=== PATIENT | female | born 1985 | race African-American/Black ===

== ENCOUNTER 2025-06-03 15:27 | Outpatient (REF) | payer OTHER, SELFPAY ==
--- OUTSIDE RECORDS SUMMARY | 2023-12-13 06:15 | XMS_ITS | Continuity of Care Document ---
Author Organization [facility] Address [address] [place] [phone] Phone Care Team Providers Care Core Microarchitect Name Role Phone Roshan Brooks DDS Unavailable [...] Prophylaxis Adult Nutrit Couns For Control Of [place] Dis Sep Oral Hygiene Instruction Intraoral-complete Series (bw) 23 Comp Oral Eval New/estab Patient 2022 Oral Hygiene Instruction Oral Hygiene Instruction Limited Oral Eval Extraction Surgical/erupt Tooth 021 Nutrit Couns For Control Of [place] Dis Sep Bitewig-single Film Intraoral-periapical 1st Film Advance Directives Directive Yes / No Effective Date File Name No Information Encounters Encounter Description Practice Location Reason(s) For Visit Diagnoses Date Provider Providers Copied on Encounter [facility], [address] [place] [address], [id number], [place] tel:[phone] Dental Clinic khang (chief complaint) Body mass index [BMI] 25.0-25.9, adultEncounter for screening for dental disorders [facility]. [address] [place] [address], [address], [place]. tel:[phone] [facility], [address] [place] [address], [id number], [place] tel:[phone] Dental Clinic Filling (chief complaint) Body mass index [BMI] 25.0-25.9, adultEncounter for screening for dental disorders [facility]. [address] [place] [address], [address], [place]. tel:[phone] [facility], [address] [place] [address], [id number], [place] tel:[phone] Dental Clinic khang (chief complaint) Encounter for screening for dental disorders [facility]. [address] [place] [address], [address], [place]. [phone] [facility], [address] [place] [address], [id number], [place] tel:[phone] Dental Clinic Filing (chief complaint) Encounter for screening for dental disorders [facility]. [address] [place] [address], [address], [place]. tel:[phone] [facility], [address] [place] [address], [id number], [place] tel:[phone] Dental Clinic [place] (chief complaint) Encounter for screening for dental disorders [facility]. [address] [place] [address], [address], [place]. tel:[phone] [facility], [address] [place] [address], [id number], [place] tel:[phone] [facility] Dental Clinic dental new (chief complaint) Encounter for screening for dental disorders Christopher MEDINAS Rivka. . tel:[phone] [facility], [address] [place], [place], [id number], [place] tel:[phone] Dental Clinic Dental Emergency (chief complaint) Encounter for screening for dental disorders Natalio Modi. [address] [place], [address], [place]. tel:[phone] Family History Family Member Type Diagnosis Age At Onset Mother Problem hypertension Father Problem malignant neoplasm of pancre as Father Problem stroke Mother Problem Alive and well Payers Payer name Insurance type Covered green party ID Authoriza tion(s) D [employer] [facility] [id number] D Medicaid [facility] [id number] Social History Type Description Quantity Date Captured [...] education , guidance, and counseling completed Goal Hepatitis C screening. Due o n due Goal Tdap. Due on due Goal PRAPARE [...] 2022 due Goal PRAPARE ASSESSMENT. Due on D due Goal Unhealthy drug use screening . Due on due Goal Influenza vaccine. Due on due Goal HPV. Due on due Goal Depression screening. Due on due Goal Tdap. Due on due Goal RLP. Due on due Goal Hepatitis C screening. Due o n due Goal PRAPARE ASSESSMENT. Due on N due Goal Tdap Vaccine. Due on 2022 due Goal HPV. Due on due Goal Hep A. Due on du e Goal Unhealthy drug use screening . Due on due Goal Influenza vaccine. Due on No due Goal Tdap. Due on due Goal Depression screening. Due on due Goal RLP. Due on due Goal Hepatitis C screening. [...] Goal Hep A. Due on du e History Of Present Illness Encounter Date Complaint [...]
--- OUTSIDE RECORDS SUMMARY | 2025-04-28 11:20 | XMS_ITS | Encounter Summary ---
Author Organization [facility] Address [address] [place] [address] Care Team Providers Care Supervisor Residential Name Role Phone Lisa Grady MD Primary Care Provider [phone] Mirella Parekh RN CLINICAL TRIALS Unavailable Encounter Details Date Type Department Care Team (Late st Contact Info) Description 04/28/2025 11:20 AM EDT Office Visit [facility] [address] [place] [id number] Lisa Grady MD [address] [place] [address] Bowel habit changes (Primary Dx); Diarrhea, unspecified type; Other iron deficiency anemia; Hyperglycemia; Elevated glucose; Generalized abdominal pain; Bipolar 1 disorder, mixed, moderate (HCC) Social History Tobacco Use Types Packs/Day Years Used Date Smoking Tobacco: Never Smokeless Tobacco: Never Alcohol Use Standard Drinks/Week Comments Never 0 (1 standard drink = 0.6 oz pur e alcohol) B1300 Health Literacy Answer Date Recor ded How often do you need to hav e someone help you when you read instructions, pamphlets, or other written material from your doctor or pharmacy? Never 07/01/2024 Social Connection and Isolation Panel [NHANES] A nswer Date Recorded In a typical week, how many times do you talk on the phone with family, friends, or neighbors? Patient declined 07/01/2024 How often do you get togethe r with friends or relatives? Patient declined 07/01/2024 How often do you attend mosque or moravian serv ices? Never 07/01/2024 Do you belong to any clubs o r organizations such as mosque groups, unions, fraternal or athletic groups, or school groups? No 07/01/2024 How often do you attend meet ings of the clubs or organizations you belong to? Never 07/01/2024 Are you , , di vorced, , never , or living with a partner? Never 07/01/2024 AUDIT-C Answer Date Recorded Q1: How often do you have a drink containing alc ohol? Patient declined 07/01/2024 Q2: How many drinks containi ng alcohol do you have on a typical day when you are drinking? Patient declined 07/01/2024 Q3: How often do you have si x or more drinks on one occasion? Less than monthly 07/01/2024 Overall Financial Resource Strain (CARDIA) Answe r Date Recorded How hard is it for you to pa y for the very basics like food, housing, medical care, and heating? Not very hard 07/01/2024 PHQ-2 Answer Date Recorded Patient Health Questionnaire-2 Score 4 04/28/2025 [facility] - Occupational Stress Questionnaire Answer Date Recorded Do you feel stress - tense, restless, nervous, or anxious, or unable to sleep at night because your mind is troubled all the time - these days? Very much 07/01/2024 Exercise Vital Sign Answer Date Recorde d On average, how many days pe r week do you engage in moderate to strenuous exercise (like a brisk walk)? 0 days 07/01/2024 On average, how many minutes do you engage in exercise at this level? 0 min 07/01/2024 Hunger Vital Sign Answer Date Recorded Within the past 12 months, y ou worried that your food would run out before you got the money to buy more. Never true 07/01/20 24 Within the past 12 months, t he food you bought just didn't last and you didn't have money to get more. Never true 07/01/2024 PRAPARE - Transportation Answer Date Re corded In the past 12 months, has l ack of transportation kept you from medical appointments or from getting medications? No 06/12 In the past 12 months, has l ack of transportation kept you from meetings, work, or from getting things needed for daily living? No 07/01/2024 Housing Stability Vital Sign Answer Philip e Recorded In the last 12 months, was t here a time when you were not able to pay the mortgage or rent on time? Yes 07/01/2024 Number of Times Moved in the Last Year Not on fi le 07/01/2024 At any time in the past 12 m [facility], were you homeless or living in a assisted (including now)? No 07/01/2024 Comments No Sex and Gender Information Value Date Recorded Sex Assigned at Not on file Legal Sex Female 7:29 PM EDT Gender Identity Female 08/13/2023 1:21 PM EDT Sexual Orientation Straight 08/13/2023 1: 21 PM EDT documented as of this encounter Last Filed Vital Signs Vital Sign Reading Time Taken Comments Blood Pressure 110/76 04/28/2025 11:15 AM EDT Pulse 76 04/28/2025 11:15 AM EDT Temperature - - Respiratory Rate - - Oxygen Saturation 99% 04/28/2025 11:15 AM EDT Inhaled Oxygen Concentration - - Weight 81.5 kg (179 lb 9.6 oz) 04/28/2025 11:15 AM EDT Height 166.4 cm (5' 5.5 ) 04/28/2025 11:15 AM ED T Body Mass Index 29.43 04/28/2025 11:15 AM EDT documented in this encounter Functional Status * Over the past 2 weeks, how often have you been bothered by any of the following problems? Question Answer Date of Assessment Author Little interest or pleasure in doing things Several days 04/28/2025 11:21 AM EDT Morena Valdovinos MA Feeling down, depressed, or hopeless Nearly every day 04/28/2025 11:21 AM EDT Morena Valdovinos MA Patient Health Questionnaire-2 Score 4 04/28/2025 11:21 AM EDT Bonifacio Valdovinos MA * Question Answer Date of Assessment Author Trouble falling or staying asleep, or sleeping too much Nearly every day 04/28/2025 11:21 AM EDT Morena Valdovinos MA Feeling tired or having little energy Nearly every day 04/28/2025 11:21 AM EDT Morena Valdovinos MA Poor appetite or overeating Nearly every day 04/28/2025 11:21 AM Morena Rondon MA Feeling bad about yourself - or that you are a failure or have let yourself or your family down Not at all 04/28/2025 11:21 AM Morena Rondon MA Trouble concentrating on things, such as reading the newspaper or watching television Nearly every day 04/28/2025 11:21 AM Morena Rondon MA Moving or speaking so slowly that other people could have noticed? Or the opposite - being so fidgety or restless that you have been moving around a lot more than usual. Several days 04/28/2025 11:21 AM Morena Rondon MA Thoughts that you would be better off or hurting yourself in some way Not at all 04/28/2025 11:21 AM Yari Rondon MA Patient Health Questionnaire-9 Score 17 04/28/2025 11:21 AM Bonifacio Rondon MA * If you checked off any problems on this questionnaire so far, Question Answer Date of Assessment Author How difficult have these problems made it for you to do your work, take care of things at home, or get along with other people? Very difficult 04/28/2025 11:21 AM Morena Rondon MA documented as of this encounter Progress Notes * Lisa Grady MD - 04/28/2025 11:20 AM EDT Images from the original note were not included. Lupe Owens is a 39 y.o. female presents with chief complaint of abd issues, persistent gas the past year and diarreha since November. Bloating in the abd. Patient has abd tenderness HPI: HPI History of Present Illness The patient presents for evaluation of diarrhea. She reports experiencing severe flatulence since 05/2024, which has been causing chest discomfort. She also mentions a significant weight gain since 11/2024, despite a reduced appetite. Her current weight is 180 pounds, up from her previous weight of 135 pounds. She experiences frequent episodes ofdiarrhea, occurring at least four times a week, which have been so severe that she had to call her son out of school during the last few months. Accompanying symptoms include cramping, bloating, and nausea. She also reports difficulty in maintaining personal hygiene due to pain and suspects the presence of hemorrhoids. She describes a sensation similar to the urge to push during childbirth, even immediately after using the restroom. Her diet is limited, with minimal intake of dairy products. She has made dietary modifications, including eliminating soda and juice, and increasing her water intake. She has also reduced her consumption of sweets and vegetables. She believes her lithium medication exacerbates her diarrhea. FAMILY HISTORY She has a cousin with Crohn's disease. Diabetes runs in her family. SUBJECTIVE: MEDICATIONS: Current Outpatient Medications Medication Instructions ALPRAZolam (XANAX) 0.5 mg, Oral, Nightly PRN cholecalciferol (VITAMIN D-3) 2,000 Units, Daily RT FLUoxetine (PROZAC) 20 mg, Oral, Daily lithium ER (Lithobid) 300 MG 12 hr tablet Take by mouth melatonin 20 mg, Nightly metoprolol succinate XL (TOPROL-XL) 50 mg, Oral, Daily, Do not crush or chew. OXcarbazepine (TRILEPTAL) 300 mg, Oral, 2 times daily tiZANidine (ZANAFLEX) 4 mg, Oral, Every 6 hours PRN tretinoin microspheres (Retin-A Micro) 0.1 % gel Topical, Nightly I have reviewed and reconciled the history and medication list with the patient today. REVIEW OF SYMPTOMS: Review of Systems OBJECTIVE: Visit Vitals BP 110/76 Pulse 76 Ht 5' 5.5 Wt 179 lb 9.6 oz SpO2 99% BMI 29.43 kg/m?? OB Status Ablation Smoking Status Never BSA 1.94 m?? Physical Exam Constitutional: Appearance: Normal appearance. She is normal weight. HENT: Head: Normocephalic and atraumatic. Nose: Nose normal. Mouth/Throat: Mouth: Mucous membranes are moist. Eyes: Pupils: Pupils are equal, round, and reactive to light. Cardiovascular: Rate and Rhythm: Normal rate and regular rhythm. Heart sounds: No murmur heard. Pulmonary: Effort: Pulmonary effort is normal. Breath sounds: Normal breath sounds. No wheezing or rhonchi. Abdominal: General: Abdomen is flat. Palpations: Abdomen is soft. There is no mass. Comments: Nild diffuse tenderness increased right side no rebound Musculoskeletal: General: No swelling. Cervical back: Normal range of motion and neck supple. Right lower leg: No edema. Left lower leg: No edema. Skin: General: Skin is warm and dry. Findings: No rash. Neurological: Mental Status: She is alert and oriented to person, place, and time. Sensory: No sensory deficit. Gait: Gait normal. Psychiatric: Mood and Affect: Mood normal. Thought Content: Thought content normal. Judgment: Judgment normal. ASSESSMENT AND PLAN: Assessment/Plan Problem List Items Addressed This Visit None Visit Diagnoses Bowel habit changes - Primary Relevant Orders CBC and differential Comprehensive metabolic panel TSH W/REFLEX TO FT4 [place] level Celiac panel reflex to titer SALMONELLA/SHIGELLA CULT, CAMPY EIA AN DSHIGA TOXIN W/RFL E.COLI 0157 CULT Clostridium difficile,EIA Amylase Diarrhea, unspecified type Relevant Orders CBC and differential Comprehensive metabolic panel TSH W/REFLEX TO FT4 [place] level Celiac panel reflex to titer SALMONELLA/SHIGELLA CULT, CAMPY EIA AN DSHIGA TOXIN W/RFL E.COLI 0157 CULT Clostridium difficile,EIA Amylase Other iron deficiency anemia Hyperglycemia Relevant Orders Hemoglobin A1c Assessment & Plan 1. Diarrhea - Symptoms include severe gassiness, bloating, cramping, and frequent diarrhea, with difficulty losing weight despite dietary changes. - Physical exam reveals tenderness, indicating possible bowel inflammation. - Blood work ordered to check for markers of infection, kidney and liver function, pancreatic health, and celiac disease. Stool studies to be performed. Colonoscopy to be scheduled if initial tests are normal. - Advised to avoid dairy products. [place] levels to be rechecked due to potential contribution to diarrhea. Referral to mosaic tile maker for further evaluation. documented in this encounter Plan of Treatment Upcoming Encounters Date Type Department Care Team (Late st Contact Info) Description 07/15/2025 11:00 AM EDT Office Visit [facility] [address] [place] [address] Angelina Vargas PA [address] [place] [address] Scheduled Orders Name Type Priority Associated Diagnoses Orde r Schedule Clostridium difficile,EIA Microbiology Routine Bowel habit changes Diarrhea, unspecified type Expected: 04/28/2025 (Approximate), Expires: 04/28/2026 documented as of this encounter Goals Goal Patient Goal Type Associated Problems Recent Progress Patient-Stated? Author Help patient manage antidepressant medication Care Plan Patient on antidepressant monitoring plan No Lisa Grady MD Baseline PHQ-9 Care Plan Baseline PHQ-9 No Lisa Grady MD documented as of this encounter Procedures Procedure Name Priority Date/Time Associated Diagnosis Comments SALMONELLA/SHIGELLA CULT, CAMPY EIA AN DSHIGA TOXIN W/RFL E.COLI 0157 CULT Routine 04/28/2025 3:06 PM EDT Bowel habit changes Diarrhea, unspecified type TSH W/REFLEX TO FT4 Routine 04/28/2025 1 1:50 AM EDT Bowel habit changes Diarrhea, unspecified type CELIAC PANEL REFLEX TO TITER Routine 04/28/2025 11:50 AM EDT Bowel habit changes Diarrhea, unspecified type CBC (INCLUDES DIFF/PLT) Routine 04/28/2025 11:50 AM EDT Bowel habit changes Diarrhea, unspecified type HEMOGLOBIN A1C Routine 04/28/2025 11:50 AM EDT Hyperglycemia AMYLASE Routine 04/28/2025 11:50 AM EDT Bowel habit changes Diarrhea, unspecified type LITHIUM Routine 04/28/2025 11:50 AM EDT Bowel habit changes Diarrhea, unspecified type COMPREHENSIVE METABOLIC PANEL Routine 04/28/2025 11:50 AM EDT Bowel habit changes Diarrhea, unspecified type documented in this encounter Results * SALMONELLA/SHIGELLA CULT, CAMPY EIA AN DSHIGA TOXIN W/RFL E.COLI 0157 CULT (04/28/2025 3:06 PM EDT) MICRO NUMBER [id number] [facility] SPECIMEN QUALITY Adequate [facility] SOURCE STOOL [facility] STATUS FINAL [facility] CAMPYLOBACTER SPP.AG,EIA SEE NOTE [facility] Comment: Not Detected Reference Range:Not Detected MICRO NUMBER [id number] [facility] SPECIMEN QUALITY Adequate [facility] SOURCE STOOL [facility] STATUS FINAL [facility] SHIGA RESULT SEE NOTE [facility] Comment: Not Detected Reference Range:Not Detected MICRO NUMBER [id number] [facility] SPECIMEN QUALITY Adequate [facility] SOURCE STOOL [facility] STATUS FINAL [facility] RESULT SEE NOTE [facility] Comment: No Salmonella or Shigella isolated 04/28/2025 3:06 PM EDT 04/28/2025 3:06 PM EDT Narrative [facility] - 05/01/2025 1:50 PM EDT SPLIT 04/28/2025 FROM [id number] Resulting Agency Comment Performing Organization Information Site ID: QPT Name: [facility] Address: [address] [place] [address], [address] [place] [phone] Director: Koby Laguna MD Lisa Grady MD LAB BODY FLUIDS AND STOOLS ORDER [place] Final Result Performing Organization Address [facility]/State/ZIP Co de Phone Number [facility] * Hemoglobin A1c (04/28/2025 11:50 AM EDT) Hemoglobin A1C 5.4 <5.7 % [facility] Comment: For the purpose of screening for the presence of diabetes: <5.7% Consistent with the absence of diabetes 5.7-6.4% Consistent with increased risk for diabetes (prediabetes) > or =6.5% Consistent with diabetes This assay result is consistent with a decreased risk of diabetes. Currently, no consensus exists regarding use of hemoglobin A1c for diagnosis of diabetes in children. According to [place] Diabetes Association (ADA) guidelines, hemoglobin A1c <7.0% represents optimal control in non- diabetic patients. Different metrics may apply to specific patient populations. Standards of Medical Care in Diabetes(ADA). Blood Venous blood specimen / Unknown 04/28/2025 11:50 AM EDT 04/28/2025 11:51 AM EDT Narrative [facility] - 05/04/2025 5:01 PM EDT COLLECTION KIT GIVEN TO PATIENT. PATIENT ADVISED TO RETURN. Resulting Agency Comment Performing Organization Information Site ID: QPT Name: [facility] Address: [address] [place] [address], [address] [place] [phone] Director: Koby Laguna MD Lisa Grady MD LAB BLOOD ORDERABLES Final Resul t Performing Organization Address [facility] Co de Phone Number [facility] * (ABNORMAL) Amylase (04/28/2025 11:50 AM EDT) AMYLASE 103(H) 21 - 101 U/L [facility] Blood Venous blood specimen / Unknown 04/28/2025 11:50 AM EDT 04/28/2025 11:51 AM EDT Narrative [facility] - 05/04/2025 5:01 PM EDT COLLECTION KIT GIVEN TO PATIENT. PATIENT ADVISED TO RETURN. Resulting Agency Comment Performing Organization Information Site ID: QPT Name: [facility] Address: [address] [facility], [address] [place] [phone] Director: Koby Laguna MD Lisa Grady MD LAB BLOOD ORDERABLES Final Resul t Performing Organization Address [facility] de Phone Number [facility] * Celiac panel reflex to titer (04/28/2025 11:50 AM EDT) INTERPRETATION see note [facility] Comment: No serological evidence of celiac disease. tTG IgA may normalize in individuals with celiac disease who maintain a gluten-free diet. Consider HLA DQ2 and DQ8 testing to rule out celiac disease. Celiac disease is extremely rare in the absence of DQ2 or DQ8. TISSUE TRANSGLUTAMINASE AB, IGA <1.0 <15.0 U/mL [facility] Comment: Value Interpretation <15.0 Antibody not detected > or = 15.0 Antibody detected IMMUNOGLOBULIN A 58 47 - 310 mg/dL [facility] Blood Venous blood specimen / Unknown 04/28/2025 11:50 AM EDT 04/28/2025 11:51 AM EDT Narrative [facility] - 05/04/2025 5:01 PM EDT COLLECTION KIT GIVEN TO PATIENT. PATIENT ADVISED TO RETURN. Resulting Agency Comment Performing Organization Information Site ID: AMD Name: [facility] [place] Address: [address] [place] Director: Presley Linda M.D.,PhD Lisa Grady MD LAB BLOOD ORDERABLES Final Resul t Performing Organization Address [facility] de Phone Number [facility] * [place] level (04/28/2025 11:50 AM EDT) Pathologist [facility] LITHIUM 1.0 0.6 - 1.2 mmol/L [facility] Blood Venous blood specimen / Unknown 04/28/2025 11:50 AM EDT 04/28/2025 11:51 AM EDT Narrative [facility] - 05/04/2025 5:01 PM EDT COLLECTION KIT GIVEN TO PATIENT. PATIENT ADVISED TO RETURN. Resulting Agency Comment Performing Organization Information Site ID: QPT Name: [facility] Address: [address] [place] [address], [address] [place] [phone] Director: Koby Laguna MD Lisa Grady MD LAB BLOOD ORDERABLES Final Resul t Performing Organization Address [facility] de Phone Number [facility] * TSH W/REFLEX TO FT4 (04/28/2025 11:50 AM EDT) Pathologist [facility] TSH W/REFLEX TO FT4 2.21 mIU/L [facility] Comment: Reference Range > or = 20 Years 0.40-4.50 Ranges First trimester 0.26-2.66 Second trimester 0.55-2.73 Third trimester 0.43-2.91 04/28/2025 11:5 0 AM EDT 04/28/2025 11:51 AM EDT Narrative [facility] - 05/04/2025 5:01 PM EDT COLLECTION KIT GIVEN TO PATIENT. PATIENT ADVISED TO RETURN. Resulting Agency Comment Performing Organization Information Site ID: QPT Name: [facility] Address: [address] [place] [address], [address] [place] [phone] Director: Koby Laguna MD us Lisa Grady MD LAB BLOOD ORDERABLES Final Resul t Performing Organization Address [facility] de Phone Number [facility] * Comprehensive metabolic panel (04/28/2025 11:50 AM EDT) Pathologist [facility] Glucose 87 65 - 99 mg/dL [facility] Comment: Fasting reference interval BUN 10 7 - 25 mg/dL [facility] Creatinine 0.91 0.50 - 0.97 mg/dL [facility] EGFR 83 > OR = 60 mL/min/1. 73m2 [facility] BUN/CREATININE RATIO SEE NOTE: 6 - 22 (calc) [facility] Comment: Not Reported: BUN and Creatinine are within reference range. Sodium 136 135 - 146 mmol/L [facility] Potassium, Bld 4.1 3.5 - 5.3 mmol/L [facility] Chloride 102 98 - 110 mmol/L [facility] Carbon Dioxide 28 20 - 32 mmol/L [facility] Calcium 9.1 8.6 - 10.2 mg/dL [facility] PROTEIN, TOTAL 6.5 6.1 - 8.1 g/dL [facility] ALBUMIN 4.3 3.6 - 5.1 g/dL [facility] GLOBULIN 2.2 1.9 - 3.7 g/dL (calc) [facility] ALBUMIN/GLOBULIN RATIO 2.0 1.0 - 2.5 (calc) [facility] BILIRUBIN, TOTAL 0.3 0.2 - 1.2 mg/dL [facility] ALKALINE PHOSPHATASE 82 31 - 125 U/L [facility] AST 27 10 - 30 U/L [facility] ALT 28 6 - 29 U/L [facility] Blood Venous blood specimen / Unknown 04/28/2025 11:50 AM EDT 04/28/2025 11:51 AM EDT Narrative [facility] - 05/04/2025 5:01 PM EDT COLLECTION KIT GIVEN TO PATIENT. PATIENT ADVISED TO RETURN. Resulting Agency Comment Performing Organization Information Site ID: QPT Name: [facility] Address: [address] [place] [address], [address] [place] [phone] Director: Koby Laguna MD us Lisa Grady MD LAB BLOOD ORDERABLES Final Resul t [facility] * (ABNORMAL) CBC and differential (04/28/2025 11:50 AM EDT) WHITE BLOOD CELL COUNT 7.2 3.8 - 10.8 Thousand/u L [facility] RED BLOOD CELL COUNT 4.18 3.80 - 5.10 Million/uL [facility] HEMOGLOBIN 11.8 11.7 - 15.5 g/dL [facility] HEMATOCRIT 38.0 35.0 - 45.0 % [facility] MCV 90.9 80.0 - 100.0 fL [facility] MCH 28.2 27.0 - 33.0 pg [facility] MCHC 31.1(L) 32.0 - 36.0 g/dL [facility] Comment: For adults, a slight decrease in the calculated MCHC value (in the range of 30 to 32 g/dL) is most likely not clinically significant; however, it should be interpreted with caution in correlation with other red cell parameters and the patient's clinical condition. RDW 12.9 11.0 - 15.0 % [facility] PLATELET COUNT 307 140 - 400 Thousand/u L [facility] MPV 10.2 7.5 - 12.5 fL [facility] ABSOLUTE NEUTROPHILS 4,097 1,500 - 7,800 cells/uL [facility] ABSOLUTE LYMPHOCYTES 1,793 850 - 3,900 cells/uL [facility] ABSOLUTE MONOCYTES 396 200 - 950 cells/uL [facility] ABSOLUTE EOSINOPHILS 842(H) 15 - 500 cells/uL [facility] ABSOLUTE BASOPHILS 72 0 - 200 cells/uL [facility] NEUTROPHILS 56.9 % [facility] LYMPHOCYTES 24.9 % [facility] MONOCYTES 5.5 % [facility] EOSINOPHILS 11.7 % [facility] BASOPHILS 1.0 % [facility] Blood Venous blood specimen / Unknown 04/28/2025 11:50 AM EDT 04/28/2025 11:51 AM EDT Narrative [facility] - 05/04/2025 5:01 PM EDT COLLECTION KIT GIVEN TO PATIENT. PATIENT ADVISED TO RETURN. Resulting Agency Comment Performing Organization Information Site ID: QPT Name: [facility] Address: [address] [place] [phone] Director: Koby Laguna MD Lisa Grady MD LAB BLOOD ORDERABLES Final Resul t [facility] documented in this encounter Visit Diagnoses Diagnosis Bowel habit changes- Primary Other symptoms involving digestive system Diarrhea, unspecified type Other iron deficiency anemia Hyperglycemia Other abnormal glucose Elevated glucose Other abnormal glucose Generalized abdominal pain Abdominal pain, generalized Bipolar 1 disorder, mixed, moderate (HCC) documented in this encounter Additional Health Concerns Active Problems Noted Date Diagnosed Date Patient on antidepressant monitoring plan 2023 Baseline PHQ-9 07/01/2024 Assessment Noted Time PHQ-9 Depression Total Score: 17 04/28/2 025 11:21 AM EDT documented as of this encounter Care Teams Supervisor Residential Relationship Specialty Start Date End Date Lisa Grady MD [address] [place] [address] PCP - General Family Medicine 03/19/23 Mirella Parekh NP PCP - [facility] 11/11/24 documented as of this encounter
--- OUTSIDE RECORDS SUMMARY | 2025-06-03 10:40 | XMS_ITS | Encounter Summary ---
Author Organization [facility] Address [address] [place] [address] Care Team Providers Care Administrative Services Assistant Name Role Phone Lisa Grady MD Primary Care Provider [phone] Mirella Parekh ANTHROPOLOGY PROFESSOR Unavailable Reason for Visit * Reason Comments Pre-op Visit Gynecologic Exam STI Screening Encounter Details Date Type Department Care Team (Late st Contact Info) Description 06/03/2025 10:40 AM EDT Consult [facility] [address] [facility] [place] [address] Walter Cox, DO [address] [facility] [address] Kevin Louise, [facility]11 Sexually transmitted disease exposure (Primary Dx); Pre-op examination; Pelvic pain; Abnormal uterine bleeding (AUB); Intramural and submucous leiomyoma of uterus; Well woman exam with routine gynecological exam; Vaginal discharge; STD exposure Social History Tobacco Use Types Packs/Day Years [...] declined 07/01/2024 How often do you attend orthodox or anglican serv ices? Never 07/01/2024 Do you belong to any clubs o r organizations such as orthodox groups, unions, fraternal or athletic groups, or [...] Recorded Patient Health Questionnaire-2 Score 4 04/28/2025 [facility] - Occupational Stress [...] any time in the past 12 m [facility], were you homeless or living in a mcc (including now)? No 07/01/2024 Comments No Sex and Gender Information Value Date Recorded Sex Assigned at Not on file Legal Sex Female 7:29 PM EDT Gender Identity Female 08/13/2023 1:21 PM EDT Sexual Orientation Straight 08/13/2023 1: 21 PM EDT documented as of this encounter Last Filed Vital Signs Vital Sign Reading Time Taken Comments Blood Pressure 114/74 06/03/2025 11:03 AM EDT Pulse - - Temperature - - Respiratory Rate - - Oxygen Saturation - - Inhaled Oxygen Concentration - - Weight 77.5 kg (170 lb 12.8 oz) 025 11:03 AM EDT Height - - Body Mass Index 27.99 04/28/2025 11:15 AM EDT documented in this encounter Plan of Treatment Upcoming Encounters Date Type Department Care Team (Late st Contact Info) Description 07/15/2025 11:00 AM EDT Office Visit [facility] [address] [facility] [place] [place] [phone] Angelina Vargas PA [address] [facility] [place] [address] Scheduled Orders Name Type Priority Associated Diagnoses Orde r Schedule Pap Smear Pathology and Cytology Routine Well woman exam with routine gynecological exam Ordered: 06/03/2025 HPV DNA probe, amplified Microbiology Routine Well woman exam with routine gynecological exam Ordered: 06/03/2025 SURESWAB(R) ADVANCED VAGINITIS PLUS, TMA Pathology and Cytology Routine Vaginal discharge Ordered: 06/03/2025 CHLAMYDIA TRACHOMATIS (GENITO/STI) Lab Routine STD exposure Ordered: 06/03/2025 Neisseria gonorrhea DNA probe, direct Lab Routine STD exposure Ordered: 06/03/2025 HIV-1 and HIV-2 antibodies Lab Routine Sexually transmitted disease exposure Ordered: 06/03/2025 Hepatitis B surface antigen Lab Routine Sexually transmitted disease exposure Ordered: 06/03/2025 RPR Lab Routine Sexually transmitted disease exposure Ordered: 06/03/2025 documented as of this encounter Goals Goal Patient Goal Type Associated Problems Recent Progress Patient-Stated? Author Help patient manage antidepressant medication Care Plan Patient on antidepressant monitoring plan No Lisa Grady MD Baseline PHQ-9 Care Plan Baseline PHQ-9 No Lisa Grady MD documented as of this encounter Visit Diagnoses Diagnosis Sexually transmitted disease exposure- Primary Contact with or exposure to venereal diseases Pre-op examination Pelvic pain Abnormal uterine bleeding (AUB) Intramural and submucous leiomyoma of uterus Well woman exam with routine gynecological exam Routine gynecological examination Vaginal discharge Leukorrhea, not specified as infective STD exposure documented in this encounter Additional Health Concerns Active Problems Noted Date Diagnosed Date Patient on antidepressant monitoring plan 2023 Baseline PHQ-9 07/01/2024 Assessment Noted Time PHQ-9 Depression Total Score: 17 025 11:21 AM EDT documented as of this encounter Care Teams Administrative Services Assistant Relationship Specialty Start Date End Date Lisa Grady MD [address] [place] [address] PCP - General Family Medicine 03/19/23 Mirella Parekh NP PCP - [facility] 11/11/24 documented as of this encounter
--- OUTSIDE RECORDS SUMMARY | 2025-06-03 15:30 | XMS_ITS | Encounter Summary ---
Author Organization [employer] s [facility] Address [id number] [address] [place] [address] Care Team Providers Care Pathology Specialist Name Role Phone Lisa Grady MD Primary Care Provider [phone] Encounter Details Date Type Department Care Team (Late st Contact Info) Description 02/27/2023 Telephone [facility]ne[facility] [address] [place] [address] Monica Mabry Social History Tobacco Use Types Packs/Day Years Used Date Smoking Tobacco: Former Cigarettes 1 18 2 - 2018 Vaping/E-cigarettes Smokeless Tobacco: Never Alcohol Use Standard Drinks/Week Comments No 0 (1 standard drink = 0.6 oz pur e alcohol) PHQ-2 Answer Date Recorded Total Score 23 09/06/2022 Childcare Answer Date Recorded Childcare Unknown 04/22/2019 Employment Answer Date Recorded Employment Unknown 04/22/2019 Hunger Screening Answer Date Recorded Within the past 12 months we worried whether our food would run out before we got money to buy more. Never True 10/25/2022 Within the past 12 months th e food we bought just didn't last and we didn't have money to get more. Never True 10/25/2022 Purpose - Life Answer Date Recorded Purpose and direction in life Unknown Education Answer Date Recorded What is the highest level of school you have completed or the highest degree you have received? Some college, no degree 09/06/2022 Comments No Sex and Gender Information Value Date Recorded Sex Assigned at Not on file Legal Sex Female 11:39 AM EDT Gender Identity Not on file Sexual Orientation Not on file COVID-19 Exposure Response Date Recorded In the last month, have you been in contact with someone who was confirmed or suspected to have Coronavirus / COVID-19? No / Unsure 02/11/2023 8:10 AM EDT documented as of this encounter Miscellaneous Notes * Telephone Encounter - Monica Mabry - 02/27/2023 1:23 PM EDT Patient's surgery was rescheduled to March 13. Patient states according to her period tracker she would be on her period that day. Is she still able to have the procedure while on her period? Please advise. Thank you. * Telephone Encounter - Monica Clotilde - 02/27/2023 1:23 PM EDT Patient called checking on the status of the pre-cert for her procedure. Patient stated she spoke to her insurance company & they informed her that the request may be expedited. M for Lianet Minaya in pre-cert ([phone]) to call the office with an update & information. documented in this encounter Plan of Treatment Not on file documented as of this encounter Visit Diagnoses Not on filedocumented in this encounter Additional Health Concerns Assessment Noted Time PHQ-9 Depression Total Score: 23 022 6:32 PM EDT documented as of this encounter Care Teams Pathology Specialist Relationship Specialty Start Date End Date Lisa Grady MD [address] [place] [address] PCP - General Family Medicine 12/31/24 documented as of this encounter
--- OUTSIDE RECORDS SUMMARY | 2025-06-03 15:30 | XMS_ITS | Clinical Summary ---
Author Organization [facility] Address [address] [place] [address] Care Team Providers Care Quality Engineer Medical Device Name Role Phone Lisa Grady MD Primary Care Provider [phone] Mirella Parekh FIRST AID OFFICER Unavailable Allergies Active Allergy Reactions Criticality Noted Date Comments Amlodipine Itching,Rash Low 12/09/2024 Prednisone Other 12/09/2024 Light headed Medications FLUoxetine (PROzac) 20 MG capsuleIndicatio ns:Anxiety,Bipol ar 1 disorder, mixed, moderate (HCC) Take 1 capsule (20 mg) by mouth Daily 30 capsule 1 4 Active ALPRAZolam (Xanax) 0.5 MG tabletIndication s:Anxiety Take 1 tablet (0.5 mg) by mouth as needed at bedtime for anxiety 30 tablet 4 Active metoprolol succinate XL (Toprol-XL) 50 MG 24 hr tabletIndication s:Primary hypertension Take 1 tablet (50 mg) by mouth Daily Do not crush or chew. 30 tablet 11 4 10/28/20 25 Active cholecalciferol (Vitamin D-3) 50 MCG (1999 UT) capsule Take 2,000 Units by mouth in the morning. 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 Anxiety 03/23/2024 Bipolar 1 disorder 03/23/2024 Depression 03/23/2024 Hyperpigmentation 03/23/2024 Intractable chronic migraine without aura and with status migrainosus 10/16/2022 Encounters Date Type Department Care Team Description 06/03/2025 10:40 AM EDT Consult [facility] [address] [place] [address] Walter Cox DO Sexually transmitted disease exposure (Primary Dx); Pre-op examination; Pelvic pain; Abnormal uterine bleeding (AUB); Intramural and submucous leiomyoma of uterus; Well woman exam with routine gynecological exam; Vaginal discharge; STD exposure 05/13/[address] [address] [place] [address] Lisa Grady MD Acne vulgaris 05/04/2025 1:10 PM EDT Office Visit [facility] [address] [place] [address] Walter Cox DO Uterine leiomyoma, unspecified location 05/04/2025 Travel 05/03/2025 Results Follow-Up [facility] [place] [address] [place] [address] Lisa Grady MD 04/30/2025 Orders Only [facility] [place] [address] [facility] [address] Lisa Grady MD Chronic diarrhea (Primary Dx) 04/29/2025 Telephone [facility] [place] [address] [facility] [address] Lisa Grady MD 04/28/2025 11:20 AM EDT Office Visit [facility] [address] [facility] [place] [address] Lisa Grady MD Bowel habit changes (Primary Dx); Diarrhea, unspecified type; Other iron deficiency anemia; Hyperglycemia; Elevated glucose; Generalized abdominal pain; Bipolar 1 disorder, mixed, moderate (HCC) 04/28/2025 Bamboo flowsheet [facility] [place] [address] Lisa Grady MD 04/28/2025 Travel 04/26/2025 Telephone [facility] [place] [address] [facility] [place] [address] Lisa Grady MD 04/23/2025 Refill [facility] [place] [address] [facility] [place] [address] Lisa Grady MD Acne vulgaris 04/21/2025 Telephone [facility] [place] [address] [facility] [place] [address] Beatrice Porter MA 04/15/2025 Telephone [facility] [place] [address] [facility] [place] [address] Lisa Grady MD 04/15/2025 Refill [facility] [place] [address] [facility] [place] [address] Lisa Grady MD Acne vulgaris 03/29/2025 Telephone [facility] [place] [address] [place] [address] Jonathan Beckham LPN 03/22/2025 Patient Outreach [place] [address] [place] [phone] Jonathan Beckham LPN 03/17/2025 Results Follow-Up [facility] [place] [phone] Jessica Meier CNM from Last 3 Months Social History Tobacco Use Types Packs/Day Years Used Date Smoking Tobacco: Never Smokeless Tobacco: Never Tobacco Cessation:Counseling Given: Not Answered Alcohol Use Standard Drinks/Week Comments Never 0 [...] declined 07/01/2024 How often do you attend christian or tenriism serv ices? Never 07/01/2024 Do you belong to any clubs o r organizations such as christian groups, unions, fraternal or athletic groups, or [...] Recorded Patient Health Questionnaire-2 Score 4 04/28/2025 [facility] Occupat ional Health - Occupational Stress [...] any time in the past 12 m [facility], were you homeless or living in a [facility] (including now)? No 07/01/2024 Comments No Sex and Gender Information Value Date Recorded Sex Assigned at Not on file Legal Sex Female 7:29 PM EDT Gender Identity Female 08/13/2023 1:21 PM EDT Sexual Orientation Straight 08/13/2023 1: 21 PM EDT Last Filed Vital Signs Vital Sign Reading Time Taken Comments Blood Pressure 114/74 06/03/2025 11:03 AM EDT Pulse 76 04/28/2025 11:15 AM EDT Temperature - - Respiratory Rate 18 05/07/2024 4:40 PM EDT Oxygen Saturation 99% 04/28/2025 11: 15 AM EDT Inhaled Oxygen Concentration - - Weight 77.5 kg (170 lb 12.8 oz) 025 11:03 AM EDT Height 166.4 cm (5' 5.5 ) 04/28/2025 11 :15 AM EDT Body Mass Index 27.99 04/28/2025 11:15 AM EDT Plan of Treatment Upcoming Encounters Date Type Department Care Team (Late st Contact Info) Description 07/15/2025 11:00 AM EDT Office Visit [facility] OB [address] [place] [phone] Angelina Vargas PA [address] [facility] [address] [place], [place] [id number] Health Maintenance Due Date Last Done Comments Influenza Vaccine (#1) 2025 Pap Smear 01/31/2026 01/31/2023 Cervical Cancer Screening 02/01/2028 HPV/Cotest 02/01/2028 01/31/2023, 05/24/2021 Goals Goal Patient Goal Type Associated Problems Recent Progress Patient-Stated? Author Help patient manage antidepressant medication Care Plan Patient on antidepressant monitoring plan No Lisa Grady MD Baseline PHQ-9 Care Plan Baseline PHQ-9 No Lisa Grady MD Procedures Procedure Name Priority Date/Time Associated Diagnosis [...] EDT Bowel habit changes Diarrhea, unspecified type THINPREP PAP AND HPV MRNA E6/E7 REFLEX HPV 16,18/45 Routine 01/31/2023 PAP SMEAR Routine 01/31/2023 12:00 AM EDT from Last 3 Months or Most Recently Relevant to Health Maintenance Results * SALMONELLA/SHIGELLA CULT, CAMPY EIA AN DSHIGA TOXIN W/RFL E.COLI 0157 CULT (04/28/2025 3:06 PM EDT) MICRO NUMBER [id number] [facility] SPECIMEN QUALITY Adequate [facility] SOURCE STOOL [facility] STATUS FINAL [facility] CAMPYLOBACTER SPP.AG,EIA SEE NOTE [facility] Comment: Not Detected Reference Range:Not Detected MICRO NUMBER [id number] [facility] SPECIMEN QUALITY Adequate [facility] SOURCE STOOL [facility] STATUS FINAL [facility] SHIGA RESULT SEE NOTE [facility] Comment: Not Detected Reference Range:Not Detected MICRO NUMBER [id number] [facility] SPECIMEN QUALITY Adequate [facility] SOURCE STOOL [facility] STATUS FINAL [facility] RESULT SEE NOTE [facility] Comment: No Salmonella or Shigella isolated 04/28/2025 3:06 PM EDT 04/28/2025 3:06 PM EDT Narrative [facility] - 05/01/2025 1:50 PM EDT SPLIT 04/28/2025 FROM [id number] Resulting Agency Comment Performing Organization Information Site ID: QPT Name: [facility] Address: [address] [place] [address], [address] [place] [phone] Director: Koby Laguna MD Lisa Grady MD LAB BODY FLUIDS AND STOOLS ORDER STANLEY Final Result [facility] * TSH W/REFLEX TO FT4 (04/28/2025 11:50 AM EDT) TSH W/REFLEX TO FT4 2.21 mIU/L [facility] Comment: Reference Range > or = 20 Years 0.40-4.50 Ranges First trimester 0.26-2.66 Second trimester 0.55-2.73 Third trimester 0.43-2.91 04/28/2025 11:5 0 AM EDT 04/28/2025 11:51 AM EDT Narrative [facility] - 05/04/2025 5:01 PM EDT COLLECTION KIT GIVEN TO PATIENT. PATIENT ADVISED TO RETURN. Resulting Agency Comment Performing Organization Information Site ID: QPT Name: [facility] Address: [address] [place] [address] Director: Koby Laguna MD Lisa Grady MD LAB BLOOD ORDERABLES Final Resul t Performing Organization Address [facility]/ZIP Co de Phone Number [facility] * Celiac panel [...] Performing Organization Information Site ID: AMD Name: [facility] [place] Address: [address] [place] [address] [place] [address] Director: Presley Linda M.D.,PhD us Lisa Grady MD LAB BLOOD ORDERABLES Final Resul t Performing Organization Address [facility]/ZIP Co de Phone Number [facility] * (ABNORMAL) CBC and differential (04/28/2025 [...] Performing Organization Information Site ID: QPT Name: [facility] Address: [address] [place] [address], [address] [place] [phone] Director: Koby Laguna MD Lisa Grady MD LAB BLOOD ORDERABLES Final Resul t [facility] * Hemoglobin A1c (04/28/2025 11:50 AM [...] diagnosis of diabetes in children. According to [place] [employer] (ADA) guidelines, hemoglobin A1c <7.0% [...] Performing Organization Information Site ID: QPT Name: [facility] Address: [address] [place] [address], [address] [place] [phone] Director: Koby Laguna MD Lisa Grady MD LAB BLOOD ORDERABLES Final Resul t Performing Organization Address City/[facility] Co de Phone Number [facility] * (ABNORMAL) Amylase (04/28/2025 11:50 AM EDT) AMYLASE 103(H) 21 - 101 U/L [facility] Blood Venous blood specimen / Unknown 04/28/2025 11:50 AM EDT 04/28/2025 11:51 AM EDT Narrative [facility] - 05/04/2025 5:01 PM EDT COLLECTION KIT GIVEN TO PATIENT. PATIENT ADVISED TO RETURN. Resulting Agency Comment Performing Organization Information Site ID: QPT Name: [facility] Address: [address] [place] [address], [address] [place] [phone] Director: Koby Laguna MD Lisa Grady MD LAB BLOOD ORDERABLES Final Resul t Performing Organization Address City/[facility] Co de Phone Number [facility] * Vandling level (04/28/2025 11:50 AM EDT) LITHIUM 1.0 0.6 - 1.2 mmol/L [facility] Blood Venous blood specimen / Unknown 04/28/2025 11:50 AM EDT 04/28/2025 11:51 AM EDT Narrative [facility] - 05/04/2025 5:01 PM EDT COLLECTION KIT GIVEN TO PATIENT. PATIENT ADVISED TO RETURN. Resulting Agency Comment Performing Organization Information Site ID: QPT Name: [facility] Address: [address] , [address] [place] [address] Director: Koby Laguna MD Lisa Grady MD LAB BLOOD ORDERABLES Final Resul t [facility] * Comprehensive metabolic panel (04/28/2025 11:50 AM EDT) Glucose 87 65 - 99 mg/dL [facility] [...] Performing Organization Information Site ID: QPT Name: [facility] Address: [address] [facility], [address] [place] [phone] Director: Koby Laguna MD us Lisa Grady MD LAB BLOOD ORDERABLES Final Resul t [facility] * THINPREP PAP AND HPV MRNA E6/E7 REFLEX HPV 16,18/45 (01/31/2023) CLINICAL INFORMATION: None given [facility] LMP: NONE GIVEN [facility] PREV. PAP: NONE GIVEN [facility] PREV. BX: NONE GIVEN [facility] SOURCE: None given [facility] STATEMENT OF ADEQUACY: SEE COMMENT [facility] Comment: Satisfactory for evaluation. Endocervical/transformation zone component present. INTERPRETATION/R ESULT: Negative for intraepithelial lesion or malignancy. [facility] CODER OPERATOR : SEE COMMENT [facility] Comment: RLP, CT(ASCP) CT screening location: [place] [address]. COMMENT SEE COMMENT [facility] Comment: EXPLANATORY NOTE: The Pap is a screening test for cervical cancer. It is not a diagnostic test and is subject to false negative and false positive results. It is most reliable when a satisfactory sample, regularly obtained, is submitted with relevant clinical findings and history, and when the Pap result is evaluated along with historic and current clinical information. HPV MRNA E6/E7 Not Detected Not Detected [facility] Comment: Methodology: Medical Lab Director-Mediated Amplification This assay detects E6/E7 viral messenger RNA (mRNA) from 14 high-risk HPV types (16,18,31,33,35,39,45,51,52,56,58,59,66,68). Cervical sources are required for HPV testing. If a vaginal source from a patient who has had a total hysterectomy with removal of cervix was submitted, please contact the testing laboratory for alternative testing options. For additional information, please refer to [email or web address] Media/faq/[email or web address] (This link if provided for information/ educational purposes only.) 01/31/2023 us Jessica PALMM [facility] Final Result [facility] * Pap Smear (01/31/2023 12:00 AM EDT) Swab Cervical swab / Unknown Jessica Del Meier CN LAB CYTOLOGY ORDERABLES Benita l Result EXTERNAL LAB from Last 3 Months or Most Recently Relevant to Health Maintenance Additional Health Concerns Active Problems Noted Date Diagnosed Date Patient on antidepressant monitoring plan 2023 Baseline PHQ-9 07/01/2024 Insurance [employer] Care Teams Quality Engineer Medical Device Relationship Specialty Start Date End Date Lisa Grady MD [address] [place] [address] PCP - General Family Medicine 03/19/23 Mirella Parekh NP [facility]CP - [facility] 11/11/24
--- OUTSIDE RECORDS SUMMARY | 2025-06-03 15:30 | XMS_ITS | Encounter Summary ---
Author Organization [facility] Address [address] [place] [address] Care Team Providers Care Spike Machine Heater Name Role Phone Lisa Grady MD Primary Care Provider [phone] Jonathan Beckham LPN Unavailable [phone] Mirella Parekh SALES PROFESSIONAL BILINGUAL Unavailable Encounter Details Date Type Department Care Team (Late st Contact Info) Description 12/13/2024 Abstract [facility] OB [address] [place] [address] Walter Cox, DO [address] [facility] [address] Kevin Louise, [facility]11 Social History Tobacco Use Types Packs/Day Years [...] declined 07/01/2024 How often do you attend episcopal or jainism serv ices? Never 07/01/2024 Do you belong to any clubs o r organizations such as episcopal groups, unions, fraternal or athletic groups, or [...] care, and heating? Not very hard 07/01/2024 [facility] - [...] any time in the past 12 m [facility], were you homeless or living in a custodial (including now)? No 07/01/2024 Comments No Sex and Gender Information Value Date Recorded Sex Assigned at Not on file Legal Sex Female 7:29 PM EDT Gender Identity Female 08/13/2023 1:21 PM EDT Sexual Orientation Straight 08/13/2023 1: 21 PM EDT documented as of this encounter Plan of Treatment Upcoming Encounters Date Type Department Care Team (Late st Contact Info) Description 07/15/2025 11:00 AM EDT Office Visit [facility] [address] [facility] [facility] [place] [phone] Angelina Vargas PA [address] [facility] [place] [address] documented as of this encounter Goals Goal Patient Goal Type Associated Problems Recent Progress Patient-Stated? Author Help patient manage antidepressant medication Care Plan Patient on antidepressant monitoring plan No Lisa Grady MD Baseline PHQ-9 Care Plan Baseline PHQ-9 No Lisa Grady MD documented as of this encounter Visit Diagnoses Not on filedocumented in this encounter Additional Health Concerns Active Problems Noted Date Diagnosed Date Patient on antidepressant monitoring plan 2023 Baseline PHQ-9 07/01/2024 documented as of this encounter Care Teams Spike Machine Heater Relationship Specialty Start Date End Date Lisa Grady MD [address] [place] [address] PCP - General Family Medicine 03/19/23 Mirella Parekh NP PCP - [facility] 11/11/24 Jonathan Beckham LPN [address] [place] [address] Licensed Practical Nurse Family Medicine 09/03/2403/22 documented as of this encounter
--- OUTSIDE RECORDS SUMMARY | 2025-06-03 15:30 | XMS_ITS | Encounter Summary ---
Author Organization [facility] Address [address] [place] [address] Care Team Providers Care Keying Machine Operator Name Role Phone Lisa Grady MD Primary Care Provider [phone] Jonathan Beckham LPN Unavailable [phone] Mirella Parekh PARKS AND RECREATION WORKER Unavailable Encounter Details Date Type Department Care Team (Late st Contact Info) Description 03/17/2025 Results Follow-Up [facility] OB [address] [place] [address] Jessica Meier, CNM [address] [place], [place] [id number] Social History Tobacco Use Types Packs/Day Years [...] declined 07/01/2024 How often do you attend jainism or sikhism serv ices? Never 07/01/2024 Do you belong to any clubs o r organizations such as jainism groups, unions, fraternal or athletic groups, or [...] care, and heating? Not very hard 07/01/2024 [facility] - Occupational [...] any time in the past 12 m [facility], were you homeless or living in a penitentiary (including now)? No 07/01/2024 Comments No Sex [...] EDT Office Visit [facility] [address] [facility] [place] [phone] Angelina Vargas PA [address] [facility] [address] [place], [place] [id number] documented as of this encounter Goals Goal [...] documented as of this encounter Care Teams Keying Machine Operator Relationship Specialty Start Date End Date Lisa Grady MD [address] [place] [address] PCP - General Family Medicine 03/19/23 Mirella Parekh NP PCP - [facility] 11/11/24 Jonathan Beckham LPN [address] [place] [address] Licensed Practical Nurse Family Medicine 09/03/2403/22 documented as of this encounter
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
--- OUTSIDE RECORDS SUMMARY | 2025-06-03 15:30 | XMS_ITS | Encounter Summary ---
Author Organization [facility] Address [address] [place] [address] Care Team Providers Care Digital Sales Representative Name Role Phone Jonathan Germain Unavailable [phone] Lisa Grady MD Primary Care Provider [phone] Jonathan Beckham LPN Unavailable [phone] Mirella Parekh NP Unavailable Encounter Details Date Type Department Care Team (Late st Contact Info) Description 03/24/2024 Abstract [facility] [address] [place] [id number] Mirella Parekh NP Social History Tobacco Use Types Packs/Day Years Used Date Smoking Tobacco: Never Smokeless Tobacco: Never Alcohol Use Standard Drinks/Week Comments Never 0 (1 standard drink = 0.6 oz pur e alcohol) AUDIT-C Answer Date Recorded Q1: How often do you have a drink containing alcohol? Never 02/27/2024 Q2: How many drinks containi ng alcohol do you have on a typical day when you are drinking? Patient does not drink Q3: How often do you have si x or more drinks on one occasion? Never 02/27/2024 Comments No Sex and Gender Information Value [...] EDT Office Visit [facility] [address] [facility] [place] [address] Angelina Vargas PA [address] [place] [address] documented as of this encounter Visit Diagnoses Not on filedocumented in this encounter Care Teams Digital Sales Representative Relationship Specialty Start Date End Date Jonathan Geramin PA [address] [place] [address] PCP - [facility] 02/09/23 Lisa Grady MD [address] [place] [address] PCP - General Family Medicine 03/19/23 Mirella Parekh NP PCP - [facility] 11/11/24 Jonathan Beckham LPN [address] [place] [id number] Licensed Practical Nurse Family Medicine 09/03/2403/22 documented as of this encounter
--- OUTSIDE RECORDS SUMMARY | 2025-06-03 15:31 | XMS_ITS | Encounter Summary ---
Author Organization [facility] Address [address] [place] [address] Care Team Providers Care International Marketing Specialist Name Role Phone Lisa Grady MD Primary Care Provider [phone] Jonathan Beckham LPN Unavailable [phone] Mirella Parekh MEASUREMENT PSYCHOLOGIST Unavailable Encounter Details Date Type Department Care Team (Late st Contact Info) Description 12/13/2024 Abstract [facility] OB [address] [place] [address] Walter Cox, DO [address] [facility] [address] Kevin Louise, [facility]11 Social History Tobacco Use Types Packs/Day [...] declined 07/01/2024 How often do you attend lutheran or cheondoism serv ices? Never 07/01/2024 Do you belong to any clubs o r organizations such as lutheran groups, unions, fraternal or athletic groups, or [...] care, and heating? Not very hard 07/01/2024 [facility] - Occupational [...] any time in the past 12 m [facility], were you homeless or living in a nursing home (including now)? No 07/01/2024 Comments No Sex [...] EDT Office Visit [facility] [address] [facility] [place] [phone] Angelina Vargas PA [address] [place] [address] documented as of this encounter Goals [...] documented as of this encounter Care Teams International Marketing Specialist Relationship Specialty Start Date End Date Lisa Grady MD [address] [place] [address] PCP - General Family Medicine 03/19/23 Mirella Parekh NP PCP - [facility] 11/11/24 Jonathan Beckham LPN [address] [place] [address] Licensed Practical Nurse Family Medicine 09/03/2403/22 documented as of this encounter
--- OUTSIDE RECORDS SUMMARY | 2025-06-03 15:31 | XMS_ITS | Encounter Summary ---
Author Organization [facility] tem Address [id number] [address] [place] [address] Care Team Providers Care Shelver Name Role Phone Lsia Grady MD Primary Care Provider [phone] Encounter Details Date Type Department Care Team (Late st Contact Info) Description 12/30/2024 Telephone [facility] [address] [place] [address] Renetta Shane CNA Social History Tobacco Use Types Packs/Day Years Used Date Smoking Tobacco: Former Cigarettes 1 - 2018 Vaping/E-cigarettes Smokeless Tobacco: Never Alcohol Use Standard Drinks/Week Comments Not Currently 0 (1 standard drink = 0.6 oz pur e alcohol) PHQ-2 Answer Date Recorded Total Score 24 12/09/2024 Childcare Answer Date Recorded Childcare Unknown 04/22/2019 Employment Answer Date Recorded Employment Unknown 04/22/2019 Hunger Screening Answer Date Recorded Within the past 12 months we worried whether our food would run out before we got money to buy more. Never True 12/17/2024 Within the past 12 months th e food we bought just didn't last and we didn't have money to get more. Never True 12/17/2024 Purpose - Life Answer Date Recorded Purpose [...] on file Sexual Orientation Not on file documented as of this encounter Plan of Treatment Not on file documented as of this encounter Visit Diagnoses Not on filedocumented in this encounter Additional Health Concerns Assessment Noted Time PHQ-9 Depression Total Score: 24 025 11:17 AM EST documented as of this encounter Care Teams Shelver Relationship Specialty Start Date End Date Lisa Grady MD [address] [place] [address] PCP - General Family Medicine 12/31/24 documented as of this encounter
--- OUTSIDE RECORDS SUMMARY | 2025-06-03 15:31 | XMS_ITS | Encounter Summary ---
Author Organization [facility] Address [address] [place] [address] Care Team Providers Care Electroless Plater Name Role Phone Jonathan Germain Unavailable [phone] Lisa Grady MD Primary Care Provider [phone] Jonathan Beckham CARE TECHNICIAN Unavailable [phone] Mirella Parekh DIGITAL OPERATIONS ANALYST Unavailable Encounter Details Date Type Department Care Team (Late st Contact Info) Description 09/24/2024 Orders Only [facility] [address] [place] [address] Lisa Grady MD [address] [place], [place] [id number] Primary hypertension (Primary Dx) Social History Tobacco Use Types Packs/Day Years [...] declined 07/01/2024 How often do you attend taoist or gnosticism serv ices? Never 07/01/2024 Do you belong to any clubs o r organizations such as taoist groups, unions, fraternal or athletic groups, or [...] care, and heating? Not very hard 07/01/2024 [facility] - Occupational [...] any time in the past 12 m [facility], were you homeless or living in a [facility] (including now)? No 07/01/2024 Comments No Sex [...] EDT Office Visit [facility] [address] [place] [address] Angelina Vargas PA [address] [facility] [place] [address] documented as of this encounter Goals Goal Patient Goal Type Associated Problems Recent Progress Patient-Stated? Author Help patient manage antidepressant medication Care Plan Patient on antidepressant monitoring plan No Lisa Grady MD Baseline PHQ-9 Care Plan Baseline PHQ-9 No Lisa Grady MD documented as of this encounter Visit Diagnoses Diagnosis Primary hypertension- Primary Unspecified essential hypertension documented in this encounter Additional Health Concerns Active Problems Noted Date Diagnosed Date Patient on antidepressant monitoring plan 2023 Baseline PHQ-9 07/01/2024 documented as of this encounter Care Teams Electroless Plater Relationship Specialty Start Date End Date Jonathan Germain PA [address] [place] [address] PCP - [facility] 02/09/23 Lisa Grady MD [address] [place] [address] PCP - General Family Medicine 03/19/23 Mirella Parekh NP PCP - [facility] 11/11/24 Jonathan Beckham LPN [address] [facility] [address] [place] [address] Licensed Practical Nurse Family Medicine 09/03/2403/22 documented as of this encounter
--- OUTSIDE RECORDS SUMMARY | 2025-06-03 15:31 | XMS_ITS | Encounter Summary ---
Author Organization [facility] Address [address] [place] [address] Care Team Providers Care Cigarette Package Examiner Name Role Phone Jonathan Germain Unavailable [phone] Lisa Grady MD Primary Care Provider [phone] Jonathan Beckham REGISTERED NURSING PROFESSOR Unavailable [phone] Mirella Parekh NP Unavailable Encounter Details Date Type Department Care Team (Late st Contact Info) Description 10/01/2024 External Result Encounter [facility] [address] [place] [phone] Rigoberto Casarez PA [address] [place] [phone] Social History Tobacco Use Types Packs/Day Years [...] declined 07/01/2024 How often do you attend congregation or advent serv ices? Never 07/01/2024 Do you belong to any clubs o r organizations such as congregation groups, unions, fraternal or athletic groups, or [...] care, and heating? Not very hard 07/01/2024 [facility] - Occupational Stress Questionnaire Answer Date Recorded [...] any time in the past [address] [facility], were you homeless or living in a alf (including now)? No 07/01/2024 Comments No Sex [...] Visit [facility] [address] [facility] [phone] Angelina Vargas PA [address] [place] [address] documented as of this encounter Goals Goal Patient Goal Type Associated Problems Recent Progress Patient-Stated? Author Help patient manage antidepressant medication Care Plan Patient on antidepressant monitoring plan No Lisa Grady MD Baseline PHQ-9 Care Plan Baseline PHQ-9 No Lisa Grady MD documented as of this encounter Procedures Procedure Name Priority Date/Time Associated Diagnosis Comments US PELVIS TRANSVAGINAL 10/29/2024 8:49 PM EST MR LUMBAR SPINE WO CONTRAST 10/01/2024 11:18 PM EST documented in this encounter Results * US pelvis transvaginal (10/29/2024 8:49 PM EST) Anatomical Region Laterality Modality Pelvis Ultrasound 10/29/2024 8:49 PM EST Narrative 10/29/2024 8:48 PM EST THIS EXAM WAS PERFORMED AT [facility] HISTORY: A 39-year-old female with the history of the abnormal MRI examination of the lumbar spine. Uterine fibroid is suspected. TECHNIQUE: Multiple real-time images of the pelvis are obtained by using transabdominal and transvaginal approaches. Color Doppler study is performed. COMPARISON: Comparison is made with MRI examination of the lumbar spine of 09/30/2024. FINDINGS: Uterus measures 9.5 x 5.7 x 4.9 cm. Endometrial echo stripe thickness measures 7.8 mm. There is a heterogeneous hypoechoic lesion in the uterine wall on the left side. It measures 4.9 x 4.4 x 3.9 cm. Appearance is suggestive of uterine fibroid. Cervix appears normal. Right ovary measures 3.4 x 2.0 x 1.8 cm. Left ovary measures 3.5 x 3.4 x 2.1 cm. Both ovaries are normal. No other adnexal mass is identified. No free fluid is seen in the cul-de-sac. IMPRESSION: * Enlarged uterus. There is a 4.9 x 4.4 x 3.9 cm fibroid in the left uterine wall. * Normal ovaries. No evidence of adnexal mass. * No free fluid is seen in the cul-de-sac. Finalized by Manish Alas MD on 10/29/2024 8:48 PM Procedure Note Radiology, Radiologist, MD - 10/30/2024 THIS EXAM WAS PERFORMED AT [facility] HISTORY: A 39-year-old female with the history of the abnormal MRIexamination of the lumbar spine. Uterine fibroid is suspected. TECHNIQUE: Multiple real-time images of the pelvis are obtained by usingtransabdominal and transvaginal approaches. Color Doppler study isperformed. COMPARISON: Comparison is made with MRI examination of the lumbar spineof 09/30/2024. FINDINGS: Uterus measures 9.5 x 5.7 x 4.9 cm. Endometrial echo stripethickness measures 7.8 mm. There is a heterogeneous hypoechoic lesion inthe uterine wall on the left side. It measures 4.9 x 4.4 x 3.9 cm.Appearance is suggestive of uterine fibroid. Cervix appears normal. Right ovary measures 3.4 x 2.0 x 1.8 cm. Left ovary measures 3.5 x 3.4 x2.1 cm. Both ovaries are normal. No other adnexal mass is identified. No free fluid is seen in the cul-de-sac. IMPRESSION: * Enlarged uterus. There is a 4.9 x 4.4 x 3.9 cm fibroid in the leftuterine wall. * Normal ovaries. No evidence of adnexal mass. * No free fluid is seen in the cul-de-sac. Finalized by Manish Alas MD on 10/29/2024 8:48 PM us Jessica Meier CNM IMG US PROCEDURES Final Resu lt * MR lumbar spine wo contrast (10/01/2024 11:18 PM EST) Anatomical Region Laterality Modality Spine, L-spine Magnetic Resonan ce 10/01/2024 11:1 8 PM EST Narrative 10/01/2024 11:16 PM EST THIS EXAM WAS PERFORMED AT [facility] MRI LUMBAR SPINE WITHOUT CONTRAST COMPARISON: Lumbar spine radiographs 07/23/2024 HISTORY: Acute right lumbar radiculopathy, lumbar pain radiating to right hip. TECHNIQUE: Multisequence, multiplanar MRI of the lumbar spine performed without contrast. FINDINGS: Conus medullaris appears within normal limits terminating at L2. Mild levoconvex curvature of the lumbar spine. No acute fracture. No spondylolysis. No bone marrow edema. Visualized prevertebral and paravertebral soft tissues are unremarkable. L1-2: No focal disc herniation, central stenosis, or neural foraminal narrowing. L2-3: Very mild disc bulge without central or neural foraminal narrowing. L3-4: Anterior annular fissure. Very mild disc bulge with marginal disc extending into left neural foramen with minimal left neural foraminal narrowing. No central stenosis. L4-5: Broad-based disc bulge with marginal disc osteophyte extending into bilateral neural foramina with mild to moderate bilateral neural foraminal narrowing. Mild facet hypertrophy and ligamentum flavum thickening. Mild thecal sac narrowing. L5-S1: No focal disc herniation, central stenosis, or neural foraminal narrowing. Heterogeneous masslike abnormality in the pelvis measuring 5.1 cm, incompletely characterized/incompletely visualized on this exam. Nonspecific trace free fluid in the pelvis. IMPRESSION: 1. Heterogeneous masslike abnormality in the pelvis measuring 5.1 cm, incompletely characterized/incompletely visualized on this exam. This is most likely a large uterine fibroid. Nonemergent pelvic ultrasound recommended. 2. Degenerative changes as described including spondylosis at L4-5 with [id number] bilateral neural foraminal narrowing and mild thecal sac narrowing. Finalized by Moi Virk MD on 10/01/2024 11:16 PM Procedure Note Radiology, Radiologist, - 10/02/2024 THIS EXAM WAS PERFORMED AT [facility] LUMBAR SPINE WITHOUT CONTRAST COMPARISON: Lumbar spine radiographs 07/23/2024 HISTORY: Acute right lumbar radiculopathy, lumbar pain radiating to righthip. TECHNIQUE: Multisequence, multiplanar MRI of the lumbar spine performedwithout contrast. FINDINGS: Conus medullaris appears within normal limits terminating at L2. Mildlevoconvex curvature of the lumbar spine. No acute fracture. No spondylolysis. No bone marrow edema. Visualizedprevertebral and paravertebral soft tissues are unremarkable. L1-2: No focal disc herniation, central stenosis, or neural foraminalnarrowing. L2-3: Very mild disc bulge without central or neural foraminalnarrowing. L3-4: Anterior annular fissure. Very mild disc bulge with marginal discextending into left neural foramen with minimal left neural foraminalnarrowing. No central stenosis. L4-5: Broad-based disc bulge with marginal disc osteophyte extending intobilateral neural foramina with mild to moderate bilateral neural foraminalnarrowing. Mild facet hypertrophy and ligamentum flavum thickening. Mildthecal sac narrowing. L5-S1: No focal disc herniation, central stenosis, or neural foraminalnarrowing. Heterogeneous masslike abnormality in the pelvis measuring 5.1 cm,incompletely characterized/incompletely visualized on this exam.Nonspecific trace free fluid in the pelvis. IMPRESSION: 1. Heterogeneous masslike abnormality in the pelvis measuring 5.1 cm,incompletely characterized/incompletely visualized on this exam. This ismost likely a large uterine fibroid. Nonemergent pelvic ultrasoundrecommended. 2. Degenerative changes as described including spondylosis at L4-5 [id number] bilateral neural foraminal narrowing and mild thecal sacnarrowing. Finalized by Moi Virk MD on 10/01/2024 11:16 PM us Rigoberto AIKEN IMG MRI PROCEDURES Final Resu lt documented in this encounter Visit Diagnoses Not on filedocumented in this encounter Additional Health Concerns Active Problems Noted Date Diagnosed Date Patient on antidepressant monitoring plan 2023 Baseline PHQ-9 07/01/2024 documented as of this encounter Care Teams Cigarette Package Examiner Relationship Specialty Start Date End Date Jonathan Germain PA [address] [place] [id number] PCP - [facility] 02/09/23 Lisa Grady MD [address] [place] [address] PCP - General Family Medicine 03/19/23 Mirella Parekh NP PCP - [facility] 11/11/24 Jonathan Beckham LPN [address] [place] [id number] Licensed Practical Nurse Family Medicine 09/03/2403/22 documented as of this encounter
--- OUTSIDE RECORDS SUMMARY | 2025-06-03 15:31 | XMS_ITS | Clinical Summary ---
Author Organization [facility] Address [id number] [address] [place] [address] Care Team Providers Care Machine Group Leader Name Role Phone Lisa Grady MD Primary Care Provider Allergies Active Allergy Reactions Criticality Noted Date Comments Amlodipine Rash Low 12/09/2024 Prednisone Other (See Comments) 12/09/2024 Light headed Medications * This document contains information received from the source organization and may not represent a complete record from that organization. SUMAtriptan (IMITREX) 100 mg tabletIndications: New daily persistent headache,Intractab le chronic migraine without aura and with status migrainosus Take 1 tablet (100 mg total) by mouth once as needed for migraine. May repeat in 2 hours if unresolved. Do not exceed 200 mg in 24 hours. 9 tablet 3 3 Active lidocaine (LIDODERM) 5 % Place 1 patch on the skin daily. Remove & Discard patch within 12 hours or as directed by 30 patch 4 Active metoprolol succinate XL (TOPROL XL) 50 mg 24 hr tablet Take 1 tablet (50 mg total) by mouth in the morning. 4 025 Active diphenhydrAMINE (BENADRYL) 25 mg capsule Take 4 capsules (100 mg total) by mouth nightly. Active MELATONIN ORAL Take by mouth. Active dicyclomine (BENTYL) 20 mg tablet Take 1 tablet (20 mg total) by mouth in the morning and 1 tablet (20 mg total) before bedtime. 20 tablet 5 Active ondansetron ODT (ZOFRAN ODT) 4 mg disintegrating tablet Dissolve 1 tablet (4 mg total) on tongue every 8 (eight) hours as needed for nausea for up to 10 doses. 10 tablet 5 Active cholecalciferol, vitamin D3, 2,000 units capsuleIndications :Vitamin D deficiency Take 1 capsule (2,000 Units total) by mouth in the morning. 30 capsule 5 5 Active FLUoxetine (PROzac) 20 mg capsuleIndications :Generalized anxiety disorder with panic attacks,Bipolar 1 disorder, depressed, severe (CMS-HCC) Take 1 capsule (20 mg total) by mouth in the morning. 30 capsule 3 5 Active lithium (LITHOBID) 300 mg CR tabletIndications: Bipolar 1 disorder, mixed, moderate (CMS-HCC) Take 1 tablet (300 mg total) by mouth daily AND 3 tablets (900 mg total) nightly. 120 tablet 2 5 Active ALPRAZolam (XANAX) 0.5 mg tabletIndications: Generalized anxiety disorder with panic attacks Take 1 tablet (0.5 mg total) by mouth 2 (two) times a day as needed for anxiety. 60 tablet 5 Active ALPRAZolam (XANAX) 0.5 mg tabletIndications: Generalized anxiety disorder with panic attacks Take 1 tablet (0.5 mg total) by mouth 2 (two) times a day as needed for anxiety. 60 tablet 5 025 Discontin ued(Reord er) Active Problems Problem Noted Date Diagnosed Date Lumbosacral spondylosis without myelopathy 10/20 Post concussion syndrome 10/16/2022 Intractable chronic migraine without aura and with status migrainosus 10/16/2022 Bipolar 1 disorder, depressed, severe 09/27/2022 Generalized anxiety disorder with panic attacks 09/06/2022 Post traumatic stress disorder (PTSD) 09/06/2022 Encounters * This document contains information received from the source organization and may not represent a complete record from that organization. Date Type Department Care Team Description 06/03/2025 Travel 05/26/2025 Travel 04/19/2025 Travel 04/14/2025 Travel 04/01/2025 Travel 03/26/2025 11:08 PM EDT - 03/27/2025 1:03 AM EDT Emergency [facility] [address] [place] [phone] Lei Asencio DO Generalized abdominal pain (Primary Dx) Discharge Disposition: Home 03/26/2025 Travel 03/11/2025 Travel from Last 3 Months Immunizations Immunization Administration Dates Next Due MMR 01/29/2020(),01/27/2020(Deferred : - IMMUNE) Tdap 01/29/2020(),01/27/2020() Varicella 01/29/2020(Deferred: - Immunity) Family History Medical History Relation Name Comments Anxiety disorder Father Bipolar disorder Father Pancreatic cancer Father Depression Maternal Aunt Hypertension Maternal Grandmother Hypertension Mother Breast cancer Paternal Grandmother Diabetes Paternal Grandmother Depression Paternal Uncle Relation Name Status Comments Father Maternal Aunt Alive Maternal Grandmother Mother Alive Paternal Grandmother Paternal Uncle Alive Social History Tobacco Use Types Packs/Day Years Used Date Smoking Tobacco: Former Cigarettes 1 - 2018 Vaping/E-cigarettes Smokeless Tobacco: Never Tobacco Cessation:Counseling Given: Not Answered Alcohol Use Standard Drinks/Week Comments Not Currently [...] got money to buy more. Never True 03/26/2025 Within the past 12 months th e food we bought just didn't last and we didn't have money to get more. Never True 03/26/2025 Purpose - Life Answer Date Recorded Purpose [...] on file Sexual Orientation Not on file Last Filed Vital Signs Vital Sign Reading Time Taken Comments Blood Pressure 121/71 03/26/2025 11:45 PM EDT Pulse 87 03/26/2025 11:45 PM EDT Temperature 36.8 C (98.3 F) 03/26/2025 11:15 PM EDT Respiratory Rate 16 03/26/2025 11:45 PM EDT Oxygen Saturation 98% 03/26/2025 11:45 PM EDT Inhaled Oxygen Concentration - - Weight 79.4 kg (175 lb) 03/26/2025 11:15 PM EDT Height 167.6 cm (5' 6 ) 03/26/2025 11:15 PM EDT Body Mass Index 28.25 03/26/2025 11:15 PM EDT Plan of Treatment Health Maintenance Due Date Last Done Comments DTaP,Tdap and Td Vaccines (6 - Tdap) 06/24/1998 06/23/1998, 09/15/1987, 03/07/1987, Additional history exists Adult BMI Follow Up Plan 2004 Influenza Vaccine 07/12/2025 Depression Screening 12/09/2025 12/09/2024 Pap Smear 01/31/2026 01/31/2023 Adult BMI Screening 03/26/2026 03/26/2025 Tobacco Screening 05/26/2026 05/26/2025 Medical Devices Not on file Procedures Procedure Name Priority Date/Time Associated Diagnosis Comments LITHIUM LEVEL Routine 04/14/2025 2:16 PM EDT [place] use POCT , URINE (NUCG) Routine 03/27/2025 12:04 AM EDT POCT NURSING URINE MACROSCOPIC UA Routine 03/27/2025 12:02 AM EDT EXTRA TUBES BLUE TOP Routine 03/26/2025 11:37 PM EDT EXTRA TUBES Routine 03/26/2025 11:37 PM EDT TSH WITH REFLEX STAT 03/26/2025 11:37 PM EDT LIPASE STAT 03/26/2025 11:37 PM EDT COMPREHENSIVE METABOLIC PANEL STAT 03/26/2025 11:37 PM EDT CBC WITH AUTO DIFFERENTIAL STAT 03/26/2025 11:37 PM EDT COMPREHENSIVE METABOLIC PANEL Routine 03/11/2025 9:16 AM EDT [place] use LITHIUM LEVEL Routine 03/11/2025 9:16 AM EDT [place] use from Last 3 Months Results * [place] level (04/14/2025 2:16 PM EDT) Only the most recent of2 resultswithin the time period is included. Pathologist [facility] LITHIUM 0.7 0.5 - 1.5 mmol/L 04/14/2025 6:15 PM EDT [facility] Blood Venous blood / Unknown Venipuncture / Unknown 04/14/2025 2:16 PM EDT 04/14/2025 2:16 PM EDT us Brit [facility] LAB BLOOD ORDERABLES Final Result [facility] [address] [place] [address], [place] [phone] * POCT , urine (03/27/2025 12:04 AM EDT) [facility] POC Urine Negative Negative 03/27/2025 12:04 AM EDT [facility] Urine 03/27/2025 12:0 4 AM EDT 03/27/2025 12:04 AM EDT us Lei Asencio DO POINT OF CARE TEST ORDER [place] Final Result [facility] [address] [place] [address], [place] * (ABNORMAL) POCT Nursing Urine Macroscopic UA (03/27/2025 12:02 AM EDT) POC Urine Specific [place] 1.025 1.010, 1.015, 1.020, 1.025 03/26/2025 11:58 PM EDT [facility] POC Urine Leukocyte Esterase Negative Negative 03/26/2025 11:58 PM EDT [facility] POC Urine Nitrite Negative Negative 03/26/2025 11:58 PM EDT [facility] POC Urine pH 6.0 5.0, 6.0, 6.5, 7.0, 7.5, 8.0, 8.5, 5.5 03/26/2025 11:58 PM EDT [facility] POC Urine Protein Trace(A) Negative 03/26/2025 11:58 PM EDT [facility] POC Urine Glucose Negative Negative 03/26/2025 11:58 PM EDT [facility] POC Urine Ketones 15 mg/dL(A) Negative 03/26/2025 11:58 PM EDT [facility] P[facility] Urine Urobilinogen 1.0 E.U./dL 03/26/2025 11:58 PM EDT [facility] POC Urine Bilirubin Negative Negative 03/26/2025 11:58 PM EDT [facility] POC Urine Blood/HGB Negative Negative 03/26/2025 11:58 PM EDT [facility] Urine 03/27/2025 12:0 2 AM EDT 03/26/2025 11:58 PM EDT us Lei Asencio DO POINT OF CARE TEST ORDER [place]AN[place] Final Result [facility] [address] [facility] [place] [address], * Light Blue Top (03/26/2025 11:37 PM EDT) Extra Tube Auto Resulted 03/27/2025 1:01 AM EDT [facility] Blood Venous blood / Unknown 03/26/2025 11:37 PM EDT 03/26/2025 11:48 PM EDT us Scientific Mediaer DO LAB BLOOD ORDERABLES Fin al Result Performing Organization Address City/[facility]/ZIP Co de Phone Number [address] [place] [address], [place] * TSH with Reflex (03/26/2025 11:37 PM EDT) TSH 1.89 0.49 - 4.67 uIU/mL 03/27/2025 12:29 AM EDT [facility] Blood Venous blood / Unknown 03/26/2025 11:37 PM EDT 03/26/2025 11:47 PM EDT us [employer] DO LAB BLOOD ORDERABLES Fin al Result Performing Organization Address [facility] Co de Phone Number [address] [place] [address], [place] * (ABNORMAL) CBC auto differential (03/26/2025 11:37 PM EDT) WBC 9.3 4 - 11 x10E9/L 03/27/2025 12:01 AM EDT [facility] RBC Count 3.81 3.8 - 5.2 X10E12/L 03/27/2025 12:01 AM EDT [facility] Hemoglobin 11.4(L) 11.7 - 15.5 g/dL 03/27/2025 12:01 AM EDT [facility] Hematocrit 33.4(L) 35 - 47 % 03/27/2025 12:01 AM EDT [facility] MCV 88 80 - 100 fL 03/27/2025 12:01 AM EDT [facility] MCH 29.8 27 - 34 pg 03/27/2025 12:01 AM EDT [facility] MCHC 34.0 32 - 36 g/dL 03/27/2025 12:01 AM EDT [facility] RDW 13.5 11.5 - 15 % 03/27/2025 12:01 AM EDT [facility] Platelet Count 309 150 - 450 X10E9/L 03/27/2025 12:01 AM EDT [facility] MPV 7.8 7 - 12 fL 03/27/2025 12:01 AM EDT [facility] Neutrophils % 63.3 % 03/27/2025 12:01 AM EDT [facility] Lymphocytes % 20.0 % 03/27/2025 12:01 AM EDT [facility] Monocytes % 6.1 % 03/27/2025 12:01 AM EDT [facility] Eosinophils % 10.1 % 03/27/2025 12:01 AM EDT [facility] Basophils % 0.5 % 03/27/2025 12:01 AM EDT [facility] Neutrophils Absolute (A) 5.9 1.5 - 6.6 10*3/uL 03/27/2025 12:01 AM EDT [facility] Lymphocytes Absolute 1.9 1.0 - 3.5 10*3/uL 03/27/2025 12:01 AM EDT [facility] Monocytes Absolute 0.6 0.0 - 0.9 10*3/uL 03/27/2025 12:01 AM EDT [facility] Eosinophils Absolute 0.9(H) 0.0 - 0.4 10*3/uL 03/27/2025 12:01 AM EDT [facility] Basophils Absolute 0.0 0.0 - 0.2 10*3/uL 03/27/2025 12:01 AM EDT [facility] Differential Type AUTOMATED DIFFERENTIAL 03/27/2025 12:01 AM EDT [facility] Blood 03/26/2025 11:3 7 PM EDT 03/26/2025 11:47 PM EDT us Lei Asencio DO LAB BLOOD ORDERABLES Fin al Result [facility] [address] [place] [address], [place] * (ABNORMAL) Lipase (03/26/2025 11:37 PM EDT) LIPASE 45(H) 17 - 40 U/L 03/27/2025 12:10 AM EDT [facility] Blood Venous blood / Unknown 03/26/2025 11:37 PM EDT 03/26/2025 11:47 PM EDT us Lei [facility] LAB BLOOD ORDERABLES Fin al Result [address] [place] [address], [place] * (ABNORMAL) Comprehensive metabolic panel (03/26/2025 11:37 PM EDT) Only the most recent of2 resultswithin the time period is included. SODIUM 135 134 - 146 mmol/L 03/27/2025 12:12 AM EDT [facility] POTASSIUM 3.3(L) 3.5 - 5.0 mmol/L 03/27/2025 12:12 AM EDT [facility] CHLORIDE 108 98 - 109 mmol/L 03/27/2025 12:12 AM EDT [facility] CARBON DIOXIDE 23 22 - 32 mmol/L 03/27/2025 12:12 AM EDT [facility] ANION GAP 4(L) 5 - 15 mmol/L 03/27/2025 12:12 AM EDT [facility] BLOOD UREA NITROGEN 9 5 - 23 mg/dL 03/27/2025 12:12 AM EDT [facility] CREATININE 0.97 0.40 - 1.00 mg/dL 03/27/2025 12:12 AM EDT [facility] Comment:METHOD TRACEABLE TO IDMS STANDARD GLUCOSE 148(H) 65 - 99 mg/dL 03/27/2025 12:12 AM EDT [facility] CALCIUM 8.5 8.5 - 10.5 mg/dL 03/27/2025 12:12 AM EDT [facility] TOTAL PROTEIN 6.6 6.0 - 8.0 g/dL 03/27/2025 12:12 AM EDT [facility] ALBUMIN 3.9 3.2 - 5.3 g/dL 03/27/2025 12:12 AM EDT [facility] ALKALINE PHOSPHATASE 91 39 - 130 U/L 03/27/2025 12:12 AM EDT [facility] AST 31 <=41 U/L 03/27/2025 12:12 AM EDT [facility] ALT 26 <=31 U/L 03/27/2025 12:12 AM EDT [facility] BILIRUBIN,TOTAL 0.6 0.3 - 1.2 mg/dL 03/27/2025 12:12 AM EDT [facility] EGFR Non-Race Dependent 77 >=60 ml/min/1.7 3sq.m 03/27/2025 12:12 AM EDT [facility] Comment: eGFR not reported due to non-numeric value for Creatinine. Reported eGFR is based on the CKD-EPI 2020 equation that does not use a race coefficient. Blood Venous blood / Unknown 03/26/2025 11:37 PM EDT 03/26/2025 11:47 PM EDT us Lei Asencio DO LAB BLOOD ORDERABLES Fin al Result [facility] [address] [place] [address], from Last 3 Months Insurance [employer] Advance Directives * Full Code (Latest Code Status on File) Date Activated Date Inactivated Comments 01/27/2020 1:16 PM 01/29/2020 2:04 PM * Full Code Date Activated Date Inactivated Comments 07/10/2018 2:51 PM 07/12/2018 9:44 PM Care Teams Machine Group Leader Relationship Specialty Start Date End Date Lisa Grady MD [address] [place] [address] PCP - General Family Medicine 12/31/24
--- OUTSIDE RECORDS SUMMARY | 2025-06-03 15:31 | XMS_ITS | Encounter Summary ---
Author Organization [facility] Address [address] [place] [address] Care Team Providers Care Intranet Support Name Role Phone Lisa Grady MD Primary Care Provider [phone] Jonathan Beckham LPN Unavailable [phone] Mirella Parekh INTERN Unavailable Encounter Details Date Type Department Care Team (Late st Contact Info) Description 12/08/2024 External Result Encounter [facility] [address] [place] [id number] Rigoberto Casarez, NELLI [address] [place] [address] Social History Tobacco Use Types Packs/Day Years [...] declined 07/01/2024 How often do you attend rastafarian or scientology serv ices? Never 07/01/2024 Do you belong to any clubs o r organizations such as rastafarian groups, unions, fraternal or athletic groups, or [...] care, and heating? Not very hard 07/01/2024 [facility] - Occupational Stress [...] any time in the past 12 m [facility], were you homeless or living in a [...] EDT Office Visit [facility] [address] [place] [address] Angelina Vargas PA [address] [place] [address] documented as of this encounter Goals Goal Patient Goal Type Associated Problems Recent Progress Patient-Stated? Author Help patient manage antidepressant medication Care Plan Patient on antidepressant monitoring plan No Lisa Grady MD Baseline PHQ-9 Care Plan Baseline PHQ-9 No Lisa Grady MD documented as of this encounter Procedures Procedure Name Priority Date/Time Associated Diagnosis Comments MR KNEE LEFT WO IV CONTRAST 12/25/2024 5:07 PM EST MR CERVICAL SPINE WO CONTRAST 12/08/2024 10:56 AM EST documented in this encounter Results * MR knee left wo IV contrast (12/25/2024 5:07 PM EST) Anatomical Region Laterality Modality Lower Extremities, Knee Left Magnetic Resonance 12/25/2024 5:07 PM EST Narrative 12/25/2024 5:06 PM EST THIS EXAM WAS PERFORMED AT [facility] CLINICAL INFORMATION: Internal derangement of left knee. Knees likely unstable. Has a history of arthroscopy. COMPARISON: ?None. PROCEDURE: ?Multisequence, multiplanar MR images of the knee were obtained. FINDINGS: MENISCI Medial meniscus: Pain and abnormal signal in the root of the medial meniscus (10/8.) No abscess or surgery to this area, this could reflect a subtle meniscal root tear posterior horn medial meniscus Lateral meniscus: Intact. LIGAMENTS Cruciate ligaments: The ACL and PCL are intact. Medial collateral ligament: Superficial and deep components intact. No periligamentous edema. Lateral collateral ligament: Intact. EXTENSOR MECHANISM Extensor mechanism: The distal quadriceps and patellar tendons are intact. The patella is normally positioned within the trochlear groove. There is no retinacular disruption. FLUID Fluid: Small joint effusion. No Hannon's cyst. Small amount of edema in Hoffa's fat pad noted nonspecific. OSSEOUS and ARTICULAR STRUCTURES Bones: No fracture, stress reaction, or osseous lesion is seen. Patellofemoral compartment: No definitive hyaline cartilage disease. Medial compartment: No hyaline cartilage disease. Lateral compartment: No hyaline cartilage disease. IMPRESSION: * The examination demonstrates no definitive internal derangement. * There is possibly a medial meniscus posterior root tear however patient has had a history of prior arthroscopic surgery and correlation needs to be made with any previous surgery in this area. * Finalized by Kojo Lamb MD on 12/25/2024 5:06 PM Procedure Note Radiology, Radiologist, MD - 12/28/2024 THIS EXAM WAS PERFORMED AT [facility] CLINICAL INFORMATION: Internal derangement of left knee. Knees likely unstable. Has a history of arthroscopy. COMPARISON: ?None. PROCEDURE: ?Multisequence, multiplanar MR images of the knee wereobtained. FINDINGS: MENISCI Medial meniscus: Pain and abnormal signal in the root of the medialmeniscus (10/8.) No abscess or surgery to this area, this could reflect asubtle meniscal root tear posterior horn medial meniscus Lateral meniscus: Intact. LIGAMENTS Cruciate ligaments: The ACL and PCL are intact. Medial collateral ligament: Superficial and deep components intact. Noperiligamentous edema. Lateral collateral ligament: Intact. EXTENSOR MECHANISM Extensor mechanism: The distal quadriceps and patellar tendons are intact.The patella is normally positioned within the trochlear groove. There isno retinacular disruption. FLUID Fluid: Small joint effusion. No Hannon's cyst. Small amount of edema in Hoffa's fat pad noted nonspecific. OSSEOUS and ARTICULAR STRUCTURES Bones: No fracture, stress reaction, or osseous lesion is seen. Patellofemoral compartment: No definitive hyaline cartilage disease. Medial compartment: No hyaline cartilage disease. Lateral compartment: No hyaline cartilage disease. IMPRESSION: * The examination demonstrates no definitive internal derangement. * There is possibly a medial meniscus posterior root tear however patienthas had a history of prior arthroscopic surgery and correlation needs carol made with any previous surgery in this area. * Finalized by Kojo Lamb MD on 12/25/2024 5:06 PM us Rigoberto AIKEN IMG MRI PROCEDURES Final Resu lt * MR cervical spine wo contrast (12/08/2024 10:56 AM EST) Anatomical Region Laterality Modality Spine, C-spine Magnetic Resonan ce 12/08/2024 10:5 6 AM EST Narrative 12/08/2024 10:55 AM EST THIS EXAM WAS PERFORMED AT [facility] EXAM: MR CERVICAL SPINE WO CONT INDICATION: Cervical radiculopathy COMPARISON: None TECHNIQUE/PROTOCOL: Multiplanar multisequence noncontrast cervical spine protocol MR performed. FINDINGS: Vertebral Bodies: Vertebral body heights and signal properties are normal. Desiccation of the intervertebral discs most pronounced at C4-C5 and C5-C6. Alignment: Straightening of normal cervical lordosis. Extradural:No abnormal extradural fluid collections or masses. Spinal Cord: Normal in caliber and signal. C2-C3: No spinal canal or foraminal stenosis. C3-C4: Disc bulge. Mild indentation of the ventral thecal sac. No significant spinal canal or neural foraminal stenosis. C4-C5: Small central disc protrusion with indentation of the ventral thecal sac and abutment of the ventral surface of the spinal cord without cord signal abnormality. Mild spinal canal stenosis. Neural foramina are patent. C5-C6: Disc bulge with indentation of the ventral thecal sac and abutment of the ventral surface of the spinal cord without cord signal abnormality. Minimal thecal sac stenosis. Neural foramina are patent. C6-C7: Minimal disc bulge. No significant spinal canal or neural foraminal stenosis. C7-T1: No spinal canal or foraminal stenosis. Paraspinal Soft Tissues: Unremarkable. Neck Soft Tissues: Unremarkable. IMPRESSION: Small central disc protrusion at C4-C5 with indentation of the ventral thecal sac and abutment of the ventral surface of the spinal cord without cord signal abnormality. Mild spinal canal stenosis. Disc bulge at C5-C6 contributes to minimal thecal sac stenosis. No cord signal abnormality. See above for detailed description of individual levels. Finalized by Fredy Montgomery on 12/08/2024 10:55 AM Procedure Note Radiology, Radiologist, - 12/08/2024 THIS EXAM WAS PERFORMED AT [facility] EXAM: MR CERVICAL SPINE WO CONT INDICATION: Cervical radiculopathy COMPARISON: None TECHNIQUE/PROTOCOL: Multiplanar multisequence noncontrast cervical spineprotocol MR performed. FINDINGS: Vertebral Bodies: Vertebral body heights and signal properties are normal.Desiccation of the intervertebral discs most pronounced at C4-C5 andC5-C6. Alignment: Straightening of normal cervical lordosis. Extradural:No abnormal extradural fluid collections or masses. Spinal Cord: Normal in caliber and signal. C2-C3: No spinal canal or foraminal stenosis. C3-C4: Disc bulge. Mild indentation of the ventral thecal sac. Nosignificant spinal canal or neural foraminal stenosis. C4-C5: Small central disc protrusion with indentation of the ventralthecal sac and abutment of the ventral surface of the spinal cord withoutcord signal abnormality. Mild spinal canal stenosis. Neural foramina arepatent. C5-C6: Disc bulge with indentation of the ventral thecal sac and abutmentof the ventral surface of the spinal cord without cord signal abnormality.Minimal thecal sac stenosis. Neural foramina are patent. C6-C7: Minimal disc bulge. No significant spinal canal or neuralforaminal stenosis. C7-T1: No spinal canal or foraminal stenosis. Paraspinal Soft Tissues: Unremarkable. Neck Soft Tissues: Unremarkable. IMPRESSION: Small central disc protrusion at C4-C5 with indentation of the ventralthecal sac and abutment of the ventral surface of the spinal cord withoutcord signal abnormality. Mild spinal canal stenosis. Disc bulge at C5-C6 contributes to minimal thecal sac stenosis. No cord signal abnormality. See above for detailed description of individual levels. Finalized by Fredy Montgomery on 12/08/2024 10:55 AM us Rigoberto AIKEN IMG MRI PROCEDURES Final Resu lt documented in this encounter Visit Diagnoses Not on filedocumented in this encounter Additional Health Concerns Active Problems Noted Date Diagnosed Date Patient on antidepressant monitoring plan 2023 Baseline PHQ-9 07/01/2024 documented as of this encounter Care Teams Intranet Support Relationship Specialty Start Date End Date Lisa Grady MD [address] [place] [address] PCP - General Family Medicine 03/19/23 Mirella Parekh NP PCP - [facility] 11/11/24 Jonathan Beckham LPN [address] [place] [address] Licensed Practical Nurse Family Medicine 09/03/2403/22 documented as of this encounter
--- OUTSIDE RECORDS SUMMARY | 2025-06-03 15:31 | XMS_ITS | Encounter Summary ---
Author Organization [facility] Address [address] [place] [address] Care Team Providers Care Apparel Machinery Instructor Name Role Phone Jonathan Germain Unavailable [phone] Lisa Grady MD Primary Care Provider [phone] Jonathan Beckham REFRIGERATED CARGO CLERK Unavailable [phone] Mirella Parekh GAME FARM SUPERVISOR Unavailable Reason for Visit * Reason Onset Date Comments Med Refill 08/29/2024 Encounter Details Date Type Department Care Team (Late st Contact Info) Description 08/29/2024 Refill [facility] [address] [place] [address] Lisa Grady MD [address] [place], [place] [id number] Anxiety; Cervical neck pain with evidence of disc disease Social History Tobacco Use Types Packs/Day Years [...] declined 07/01/2024 How often do you attend buddhist or orthodoxy serv ices? Never 07/01/2024 Do you belong to any clubs o r organizations such as buddhist groups, unions, fraternal or athletic groups, or [...] care, and heating? Not very hard 07/01/2024 [facility] Occupat ional Health - Occupational [...] any time in the past 12 m [facility], were you homeless or living in a snf (including now)? No 07/01/2024 Comments No Sex and Gender Information Value Date Recorded Sex Assigned at Not on file Legal Sex Female 7:29 PM EDT Gender Identity Female 08/13/2023 1:21 PM EDT Sexual Orientation Straight 08/13/2023 1: 21 PM EDT documented as of this encounter Miscellaneous Notes * Telephone Encounter - Lisa Grady MD - 08/31/2024 1:03 PM EDT documented in this encounter Plan of Treatment Upcoming Encounters Date Type Department Care Team (Late st Contact Info) Description 07/15/2025 11:00 AM EDT Office Visit [facility] [address] [phone] Angelina Vargas PA [address] [place] [address] documented as of this encounter Goals Goal Patient Goal Type Associated Problems Recent Progress Patient-Stated? Author Help patient manage antidepressant medication Care Plan Patient on antidepressant monitoring plan No Lisa Grady MD Baseline PHQ-9 Care Plan Baseline PHQ-9 Lisa Clarke MD documented as of this encounter Visit Diagnoses Diagnosis Anxiety Anxiety state, unspecified Cervical neck pain with evidence of disc disease Other and unspecified disc disorder of cervical region documented in this encounter Additional Health Concerns Active Problems Noted Date Diagnosed Date Patient on antidepressant monitoring plan 2023 Baseline PHQ-9 07/01/2024 documented as of this encounter Care Teams Apparel Machinery Instructor Relationship Specialty Start Date End Date Jonathan Germain PA [address] [place] [address] PCP - [facility] 02/09/23 Lisa Grady MD [address] [place], [place] [id number] PCP - General Family Medicine 03/19/23 Mirella Parekh NP PCP - [facility] 11/11/24 Jonathan Beckham, CHIARA [address] [place] [id number] Licensed Practical Nurse Family Medicine 09/03/2403/22 documented as of this encounter
--- OUTSIDE RECORDS SUMMARY | 2025-06-03 15:31 | XMS_ITS | Encounter Summary ---
Author Organization [facility] tem Address [id number] [address] [place] [address] Care Team Providers Care Box Sealing Machine Operator Name Role Phone Lisa Grady MD Primary Care Provider [phone] Encounter Details Date Type Department Care Team (Late st Contact Info) Description 10/27/2024 Telephone [facility] [address] [place] [address] Renetta Shane CNA Social History [...] got money to buy more. Never True 10/20/2024 Within the past 12 months th e food we bought just didn't last and we didn't have money to get more. Never True 10/20/2024 Purpose - Life Answer Date Recorded Purpose [...] documented as of this encounter Care Teams Box Sealing Machine Operator Relationship Specialty Start Date End Date Lisa Grady MD [address] [place] [address] PCP - General Family Medicine 12/31/24 documented as of this encounter
--- OUTSIDE RECORDS SUMMARY | 2025-06-03 15:31 | XMS_ITS | Clinical Summary ---
Author Organization [facility] Address [address], [address] [place] [address] Care Team Providers Care Livestock Yard Attendant Name Role Phone Unavailable Primary Care Provider Unavailabl e Encounters Date Type Department Care Team Description 05/03/2025 Abstract [facility] SURGERY Part of [address] [place] [address] Bridgett Duggan MA from Last 3 Months Social History Tobacco Use Types Packs/Day Years Used Date Smoking Tobacco: Never Assessed Comments Unknown Sex and Gender Information Value Date Recorded Sex Assigned at Not on file Legal Sex Female 11:02 AM EST Gender Identity Not on file Sexual Orientation Not on file Plan of Treatment Not on file
--- OUTSIDE RECORDS SUMMARY | 2025-06-03 15:31 | XMS_ITS | Encounter Summary ---
Author Organization [employer] tem Address [id number] [address] [place] [address] Care Team Providers Care Healthcare Translator Name Role Phone Lisa Grady MD Primary Care Provider [phone] Encounter Details Date Type Department Care Team (Latest Contact Info) Description 05/26/2025 Travel Social History Tobacco Use Types Packs/Day Years Used Date Smoking Tobacco: Former Cigarettes - 2018 Vaping/E-cigarettes Smokeless Tobacco: Never Alcohol [...] documented as of this encounter Care Teams Healthcare Translator Relationship Specialty Start Date End Date Lisa Grady MD [address] [place] [address] PCP - General Family Medicine 12/31/24 documented as of this encounter
--- OUTSIDE RECORDS SUMMARY | 2025-06-03 15:31 | XMS_ITS | Encounter Summary ---
Author Organization [employer] tem Address [id number] [address] [place] [address] Care Team Providers Care Wet End Supervisor Name Role Phone Lisa Grady MD Primary Care Provider [phone] Encounter Details Date Type Department Care Team (Latest Contact Info) Description 06/03/2025 Travel Social History Tobacco Use Types Packs/Day [...] documented as of this encounter Care Teams Wet End Supervisor Relationship Specialty Start Date End Date Lisa Grady MD [address] [place] [address] PCP - General Family Medicine 12/31/24 documented as of this encounter
[2025-06-07 09:08] LABS: Age Gdln ACOG Testing Note (.); IGP, Aptima HPV, rfx 16/18,45 Note (.)
== END 2025-06-03 15:28 | disposition home or self-care (01) ==
LOC: LAB 15:27
PROVIDERS: Visit Provider Obstetrics & Gynecology
DX: Z01.419 Encounter for gynecological examination (general) (routine) without abnormal findings (principal)
CPT/HCPCS: 87624; 88175

== ENCOUNTER 2025-06-18 09:53 | Outpatient (OUT) | payer OTHER, SELFPAY ==
--- NOTE | 2025-06-18 09:58 | ECG_ITS ---
The [facility] Test Date: 2025-06-18 Pat Name: JAMIE YEN Department: Room: - Gender: Female Irrigator Valve Pipe: : 1985 Requested By: MIRLANDE BELTRAN Order Number: [id number] Reading MD: ELMER BLAS M.D. Measurements Intervals [place] Rate: 74 P: 71 WA: 163 QRS: 58 QRSD: 71 T: 58 QT: 367 QTc: 409 Interpretive Statements SINUS RHYTHM Normal ECG No previous ECG available for comparison Electronically Signed On 06-19-2025 7:36:40 EDT by ELMER BLAS M.D.
--- NOTE | 2025-06-18 10:28 | XR_ITS ---
The [address] [address] Patient Name: JAMIE YEN MRN: [id number] date: 1985 Sex: F Assigned Patient Location: [facility] Current Patient Location: [facility] Accession/Order Number: [id number] Exam Date: 06/18/2025 11:01 Report Date: 06/18/2025 11:04 At the request of: MIRLANDE BELTRAN DO Procedure: XR chest 2V PA AND LATERAL CHEST: CLINICAL HISTORY: Preoperative clearance COMPARISON: None There is no focal parenchymal consolidation, effusion or pneumothorax. The cardiac, hilar and mediastinal silhouettes are within normal limits. There is no vascular congestion. The visualized bony thorax is intact. Nipple piercings are noted. XR/XR chest 2V IMPRESSION: NO ACUTE CARDIOPULMONARY ABNORMALITY. Impression dictated by: Jesenia Loving M.D. 06/18/2025 11:04 AM Dictation Location: [place] [address] Electronically authenticated by: [id number] Y Date: 06/18/2025 11:04
== END 2025-06-18 09:54 | disposition home or self-care (01) ==
LOC: PST 09:55
PROVIDERS: PCP Family Medicine; Visit Provider Obstetrics & Gynecology
DX: Z01.810 Encounter for preprocedural cardiovascular examination (principal); D25.1 Intramural leiomyoma of uterus; R10.2 Pelvic and perineal pain; N93.9 Abnormal uterine and vaginal bleeding, unspecified
CPT/HCPCS: 71046; 93005

== ENCOUNTER 2025-07-02 08:20 | Day surgery (SDC) | payer OTHER, SELFPAY ==
[2025-06-18 10:35] VITALS: BP 122/82; PULSE 95; TEMP 36.5; O2SAT 98; BMI 27.7
[2025-07-02 08:28] LABS: Hematocrit 38.1 % (36.0-48.0); Hemoglobin 12.7 g/dL (12.0-16.0); Immature Granulocytes Abs Auto 0.01 10^3/uL (0.00-0.03); Immature Granulocytes Pct Auto 0.1 % (0.0-0.5); Lymphocytes Absolute Auto 1.9 10^3/uL (1.2-3.8); Mean Corpuscular HGB Conc 33.3 g/dL (29.9-35.2); Mean Corpuscular Hemoglobin 28.5 pg (26.7-34.0); Mean Corpuscular Volume 85.6 fL (81.0-99.0); Platelet Count 256 10^3/uL (150-450); Red Blood Count 4.45 10^6/uL (4.20-5.40); White Blood Count 6.8 10^3/uL (4.0-11.0)
[2025-07-02 08:53] VITALS: BP 123/86; PULSE 94; TEMP 36.4; O2SAT 100
--- NOTE | 2025-07-02 12:48 | PM.ONB ---
Brief Operative Note Date of procedure: 07/02/25 Pre-op diagnosis general: pelvic pain, dysmenorrhea, dyspareunia Post-op diagnosis: same as pre-op Procedure: NAME OF PROCEDURE: [ D&c hysteroscopy with myosure, diagnostic laparoscopy] findings-scared uterine cavity from prior ablation, significant adhesion of uterus to anterior abdominal wall, endometriotic implants posterior culdesac PROCEDURE: The patient was taken back to the Operating Room where she was prepped and draped in normal sterile fashion after being placed under general anesthesia without difficulty. She was also placed in the dorsal lithotomy position. A weighted speculum was placed in the patient?s vagina. The anterior lip of the cervix was identified and grasped with a single tooth tenaculum. The patient?s uterus was then sounded roughly to [? 7] cm. The patient was then gently dilated using Hegar dilators. The hysteroscope was passed through the patient?s cervix into the uterus. significant scaring from prior ablation. No gross evidence of malignancy, no gross evidence of polyps or fibroids. The hysteroscope was then removed from the uterus. The endometrial curettings were sent out to pathology. The single tooth tenaculum was then removed from the patient's anterior lip of the cervix where excellent hemostasis was noted. All instruments were removed from the patient?s vagina. . A sponge stick was placed into the patient's vagina. Attention was turned to the patient's abdomen, where a small umbilical incision was made. The fascia was tented using Adry clamps and the fascia was entered sharply. Confirmation of intraabdominal placement of the 10 mm port was confirmed under direct visualization using a laparoscope. The patient's abdomen was then insufflated using CO2 gas with approximately 4 liters. A second port was placed left laterally, this was done under direct visualization with a 5 mm port. Survey of the patient's abdomen demonstrated normal liver and gallbladder. Survey of the patient's pelvic anatomy demonstrated normal appearing rt and lt ovary and tubes as well as significant adhesions of the uterus to the anterior abdominal wall. No endometrial implants could be noted, no evidence of any pelvic disease was seen, normal appearing pelvic cavity. All instruments were removed from the patient's abdomen. The patient's abdomen was deinsufflated of CO2 gas. The patient tolerated the procedure well. Sponge stick was removed from the patient's vagina. The patient's infraumbilical fascia was closed using #0 Vicryl on a GI needle. The patient's skin was closed laterally and infraumbilically using 4-0 Vicryl. The patient tolerated the procedure well. Sponge, lap and needle counts were correct x 2. The patient was taken to Recovery Room in stable condition. Anesthesia: MICAH Surgeon: Walter Cox Corporate Legal Assistant: Meka Haddad Estimated blood loss (mL): 5 Pathology: other (endometrial currettings) Condition: stable Disposition: PACU Urinary Catheter Management Urinary Catheter Management Urethral: Cath placed during this visit: no
[2025-07-02 13:11] VITALS: BP 120/65; PULSE 101; TEMP 36.5; O2SAT 96
[2025-07-02] MEDS: HYDROMORPHONE HCL 0.5 MG/0.5 ML SYRINGE IV ×2 (13:21→13:33)
[2025-07-02 13:26] VITALS: PULSE 92; O2SAT 95
--- NOTE | 2025-07-02 13:54 | PC.NURSE ---
Patient is asleep and snoring. Appears to be comfortable and vitals are all stable with in normal parameters.
[2025-07-02 14:31] VITALS: BP 130/92; PULSE 83; O2SAT 98
--- NOTE | 2025-07-02 14:37 | PC.NURSE ---
Patient urinated per discharge criteria and is in stable condition at discharge.
== END 2025-07-02 14:37 | disposition home or self-care (01) ==
PROVIDERS: PCP Family Medicine; Visit Provider Obstetrics & Gynecology
PROC: (CPT 840; principal; 2025-07-02 09:40)
DX: R10.2 Pelvic and perineal pain (principal); N93.9 Abnormal uterine and vaginal bleeding, unspecified; N94.6 Dysmenorrhea, unspecified; N94.10 Unspecified dyspareunia; N73.6 Female pelvic peritoneal adhesions (postinfective); F17.290 Nicotine dependence, other tobacco product, uncomplicated; Z98.51 Tubal ligation status; D25.1 Intramural leiomyoma of uterus; J45.909 Unspecified asthma, uncomplicated; I10 Essential (primary) hypertension; F41.9 Anxiety disorder, unspecified; F31.9 Bipolar disorder, unspecified
CPT/HCPCS: 49320; 58558; 36415; 84702; 85025; J1100; J1171; J1885; J2250; J2371; J2405; J2704; J3010

== ENCOUNTER 2025-09-17 12:31 | Outpatient (OUT) | payer OTHER, SELFPAY ==
--- OUTSIDE RECORDS SUMMARY | 2023-12-13 05:15 | XMS_ITS | Continuity of Care Document ---
Author Organization [facility] Address [address] [place] [phone] Phone Care Team Providers Care Gum Machine Filler Name Role Phone Roshan Brooks DDS Unavailable [...] Prophylaxis Adult Nutrit Couns For Control Of [place] Dis Sep Oral Hygiene Instruction Intraoral-complete Series (bw) 23 Comp Oral Eval New/estab Patient 2022 Oral Hygiene Instruction Oral Hygiene Instruction Limited Oral Eval Extraction Surgical/erupt Tooth 021 Nutrit Couns For Control Of [place] Dis Sep Bitewig-single Film Intraoral-periapical 1st Film Advance Directives Directive Yes / No Effective Date File Name No Information Encounters Encounter Description Practice Location Reason(s) For Visit Diagnoses Date Provider Providers Copied on Encounter [facility], [address] [place] [address], [id number], [place] tel:[phone] Dental Clinic khang (chief complaint) Body mass index [BMI] 25.0-25.9, adultEncounter for screening for dental disorders [facility]. [address] [place] [address], [address], [place]. tel:[phone] [facility], [address] [place] [address], [id number], [place] tel:[phone] Dental Clinic Filling (chief complaint) Body mass index [BMI] 25.0-25.9, adultEncounter for screening for dental disorders [facility]. [address] [place] [address], [id number], [place]. tel:[phone] [facility], [address] [place] [address], [id number], [place] tel:[phone] Dental Clinic khang (chief complaint) Encounter for screening for dental disorders [facility]. [address] [place] [address], [address], [place]. [phone] [facility], [address] [place] [address], [id number], [place] tel:[phone] Dental Clinic Filing (chief complaint) Encounter for screening for dental disorders [facility]. [address] [place] [address], [address], [place]. tel:[phone] [facility], [address] [place] [address], [id number], [place] tel:[phone] Dental Clinic [place] (chief complaint) Encounter for screening for dental disorders [facility]. [address] [place] [address], [address], [place]. tel:[phone] [facility], [address] [place] [address], [id number], [place] tel:[phone] [facility] Dental Clinic dental new (chief complaint) Encounter for screening for dental disorders Christopher MEDINAS Rivka. . tel:[phone] [facility], [address] [place], [place], [id number], [place] tel:[phone] Dental Clinic Dental Emergency (chief complaint) Encounter for screening for dental disorders Natalio Modi. [address] [place], [address], [place]. tel:[phone] Family History Family Member Type Diagnosis Age At Onset Mother Problem hypertension Father Problem malignant neoplasm of pancre as Father Problem stroke Mother Problem Alive and well Payers Payer name Insurance type Covered democrat ID Authoriza tion(s) D [employer]Source [employer] [facility] [id number] D Medicaid [facility] [id number] Social History Type Description Quantity Date Captured [...]
--- OUTSIDE RECORDS SUMMARY | 2025-09-17 12:35 | XMS_ITS | Clinical Summary ---
Author Organization [facility] Address [address] [place] [address] Care Team Providers Care Meter Engineer Name Role Phone Lisa Hampton MD Primary Care Provider [phone] Mirella Parekh CHROMIUM PLATER Unavailable Allergies Active AllergyReactionsCriticalityNoted DateCommentsAmlodipineItching,RashLow 12/09/20249119DsyirunrrgJlqaz29/29/2025 Light headed Medications MedicationSigDispense QuantityRefillsLast FilledStart DateEnd DateStatus FLUoxetine (PROzac) 20 MG capsule Indications:Anxiety,Bipolar 1 disorder, mixed, moderate (HCC)Take 1 capsule (20 mg) by mouth Daily 30 capsule 4Active metoprolol succinate XL (Toprol-XL) 50 MG 24 hr tablet Indications:Primary hypertensionTake 1 tablet (50 mg) by mouth Daily Do not crush or chew. 30 tablet 1115Active cholecalciferol (Vitamin D-3) 50 MCG (1999) capsule Take 2,000 Units by mouth in the morning.5Active dicyclomine (Bentyl) 10 MG capsule Take 10 mg by mouth in the morning and 10 mg before bedtime.5Active metFORMIN XR (Glucophage-XR) 500 MG 24 hr tablet TAKE 1 TABLET BY MOUTH ONCE DAILY WITH SUPPERActive topiramate 50 MG tablet TAKE 1 TABLET BY MOUTH TWICE DAILY (IN THE MORNING AND BEFORE BEDTIME)08/11/2025 Active tretinoin microspheres (Retin-A Micro) 0.1 % gel 5Active ALPRAZolam (Xanax) 0.25 MG tablet 08/30/2024ctive QUEtiapine (SEROquel) 100 MG tablet 08/16/2025tive ALPRAZolam (Xanax) 0.5 MG tablet Indications:AnxietyTake 1 tablet (0.5 mg) by mouth as needed at bedtime for anxiety 30 tablet Discontinued QUEtiapine (SEROquel) 50 MG tablet Take 100 mg by mouth at zvdmxlm44Discontinued Active Problems ProblemNoted DateDiagnosed DateAcne azqyswqm02/13/5809Wduthaguxnm51/13/2024 Qvkzxci9003/23/2024ipolar 1 ciggwrcc24/13/8227Nnnjjtaist79/13/2024 Khuzdddtlowzylgyr72/13/2024Intractable chronic migraine without aura and with status pxezmlmsytf25/06/2022 Encounters DateTypeDepartmentCare CrsvMcuqhthmhju46/14/2025 1:00 PM EDTConsult ANSELMO RENE [address] [place] [address] Mirlande Cox DO Pre-op examination; Menorrhagia with irregular cycle; Pelvic pain in female; Dysmenorrhea; Dyspareunia, iwxwnu8008/24/2025amboo flowsheet NOMValerie RENE [address] [place] [address] Mirlande Cox DO 08/23/20259606Cvnwwr01/17/2025 1:30 PM EDTConsult NOMValerie RENE [address] [place] [address] Mirlande Cox DO Pelvic pain; Abnormal uterine bleeding (AUB)07/28/2025Telephone NOMValerie RENE [address] [place] [address] Jesenia Nunez LPN 07/28/2025amboo flowsheet NOMValerie RENE [address] [place] [place] [address] Mirlande Cox, DO 07/27/20255123Xuwose37/04/2025 11:00 AM EDTOffice Visit [facility] [address] [place] [phone] Renetta Kay, DEVIN Postoperative zxzuafmygam36/04/2025Bamboo flowsheet [facility] [address] [place] [place] [phone] Renetta Kay, CHROMIUM PLATER 07/02/2025bstract [facility] [address] [place] [place] [phone] Mirlande Cox, DO 07/02/2025bstract [facility] [address] [place] [address] Mirlande Cox, DO 07/02/2025bstract [facility] [address] [place] [place] [address] Mirlande Cox, DO 07/02/2025linisync Result Encounter N[facility] External Department Unsolicited Mirlande Cox, DO 06/23/2025Telephone [facility] [address] [place] [address] Lisa Hampton MD 06/21/2025bstract [facility] [address] [place] [place] [phone] Mirlande Cox, DO 06/18/2025linisync Result Encounter NOMS External Department Unsolicited Provider, Generic External Data 06/18/2025linisync Result Encounter NOMS External Department Unsolicited Provider, Generic External Data from Last 3 Months Family History Medical HistoryRelationNameCommentsStomach cancerOtherRelationNameStatusComments Other Social History Tobacco UseTypesPacks/DayYears UsedDateSmoking Tobacco: NeverSmokeless Tobacco: Never Tobacco Cessation:Counseling Given: Not Answered Alcohol UseStandard Drinks/WeekCommentsNever0 (1 standard drink = 0.6 oz pure alcohol)B1300 Health LiteracyAnswerDate RecordedHow often do you need to have someone help you when you read instructions, pamphlets, or other written material from your doctor or pharmacy?Never07/01/2024Social Connection and Isolation PanelAnswerDate RecordedIn a typical week, how many times do you talk on the phone with family, friends, or neighbors?Patient vplodvvd87/21/2024How often do you get together with friends or relatives?Patient gtmyhobv69/21/2024 How often do you attend yarsanism or adventist services?Never07/01/2024o you belong to any clubs or organizations such as yarsanism groups, unions, fraVengo Labs or athletic groups, or school groups?No07/01/2024How often do you attend meetings of the clubs or organizations you belong to?Never07/01/2024re you , , , , never , or living with a partner?Never vcmdaek8007/01/2024UDIT-CAnswerDate RecordedQ1: How often do you have a drink containing alcohol?Patient xahjiyxs64/21/2024Q2: How many drinks containing alcohol do you have on a typical day when you are drinking?Patient declined 07/01/2024Q3: How often do you have six or more drinks on one occasion?Less than kwmxyia1107/01/2024Overall Financial Resource Strain (CARDIA)AnswerDate Recorded How hard is it for you to pay for the very basics like food, housing, medical care, and heating?Not very hard07/01/2024HQ-2AnswerDate RecordedPatient Health Questionnaire-2 N[facility]hx004[facility] [employer] of Occupational Health - Occupational Stress QuestionnaireAnswerDate RecordedDo you feel stress - tense, restless, nervous, or anxious, or unable to sleep at night because yourmind is troubled all the time - these days?Very much07/01/2024Exercise Vital SignAnswer Date RecordedOn average, how many days per week do you engage in moderate to strenuous exercise (like a brisk walk)?0 days07/01/2024On average, how many minutes do you engage in exercise at this level?0 min07/01/2024Hunger Vital Sign AnswerDate RecordedWithin the past 12 months, you worried that your food would run out before you got the money to buymore.Never true07/01/2024Within the past 12 months, the food you bought just didn't last and you didn't have money to get more.Never true07/01/2024RAPARE - TransportationAnswerDate RecordedIn the past 12 months, has lack of transportation kept you from medical appointments or from getting medications?No07/01/2024In the past 12 months, has lack of transportation kept you from meetings, work, or from getting things needed for daily living?No07/01/2024Housing Stability Vital SignAnswerDate RecordedIn the last 12 months, was there a time when you were not able to pay the mortgage or rent on time?Yes07/01/2024Number of Times Moved in the Last YearNot on file 07/01/2024t any time in the past 12 months, were you homeless or living in a group home (including now)?No07/01/2024CommentsNoSex and Gender Information ValueDate RecordedSex Assigned at BirthNot on fileLegal IniAwswbm83/15/2023 7:29 PM EDTGender KypeaycoMcaiwt38/03/2023 1:21 PM EDTSexual OrientationStraight 08/13/2023 1:21 PM EDT Last Filed Vital Signs Vital SignReadingTime TakenCommentsBlood Whzvxejg171/6810 12:55 PM EDT Knflu845904/28/2025 11:15 AM EDTTemperature--Respiratory Ioza0749 4:40 PM EDTOxygen Qmzhwynmgg71%04/28/2025 11:15 AM EDTInhaled Oxygen Concentration-- Xtgtii70.8 kg (176 lb)08/24/2025 12:55 PM PNXRtrlom627.4 cm (5' 5.5 )04/28/2025 11:15 AM EDTBody Mass Index28.8404/28/2025 11:15 AM EDT Plan of Treatment DateTypeDepartmentCare Team (Latest Contact Info)Ombdhuqaezi74/11/2025bstract [facility] [address] [place] [address] Mirlande Cox, [address] [place] [address] Health MaintenanceDue DateLast DoneCommentsPneumococcal Vaccine: Pediatrics (0 to 5 Years) and At-Risk Patients (6 to 64 Years) (1 of 2 - PCV)2005COVID- 19 Vaccine (1 - 2023- season)2025Influenza Vaccine (#1)2025 HPV/Diapoa73/, 05/24/2021ervical Cancer Qwmfyfhjh40/24/2028Pap Smear, 01/31/2023 Goals GoalPatient Goal TypeAssociated ProblemsRecent ProgressPatient-Stated?Author Help patient manage antidepressant medication Care PlanPatient on antidepressant monitoring Lisa Patricia MD Baseline PHQ-9 Care PlanBaseline PHQ-9Lisa Edwards MD Procedures Procedure NamePriorityDate/TimeAssociated DiagnosisCommentsTBH PREG QUANT HCG Divqyrh5907/02/2025 8:25 AM EDT ALL CBC WITH AUTO ROLWWmktkvm55/22/2025 8:25 AM EDT XR CHEST 2V06/18/2025 11:04 AM EDT ECG 12-LEAD06/18/2025 8:33 AM EDT PAP BDOIXGoxglpv18/24/2025 12:00 AM EDTTHINPREP PAP AND HPV MRNA E6/E7 REFLEX HPV 16,18/52Pikjxsd02/23/2023 from Last 3 Months or Most Recently Relevant to Health Maintenance Results * TBH PREG QUANT HCG (07/02/2025 8:25 AM EDT)ComponentValueRef RangeTest Method Analysis TimePerformed AtPathologist SignatureHCG QUANTITATIVE<1mIU/mLTBH Comment: 5-50 ? 0.2-1 WEEK 50-500 ? 1-2 WEEKS 100-5,000 ?2-3 WEEKS 500-10,000 ? 3-4 WEEKS 1,000-50,000 ?? 4-5 WEEKS 10,000-100,000 5-6 WEEKS 15,000-200,000 6-8 WEEKS 10,000-100,000 2-3 MONTHS Specimen (Source)Anatomical Location / LateralityCollection Method / Volume Collection TimeReceived Time07/02/2025 8:25 AM EDT07/02/2025 9:53 AM EDT Narrative CLINISYNC - 07/02/2025 10:11 AM EDT Authorizing ProviderResult TypeResult StatusCorey Kenny DOCLINISYNCFinal Result Performing OrganizationAddressCity/State/ZIP CodePhone Number * (ABNORMAL) ALL CBC WITH AUTO DIFF (07/02/2025 8:25 AM EDT)ComponentValueRef RangeTest MethodAnalysis TimePerformed AtPathologist SignatureTBH WBC6.84.0 - 11.0 10 3/uLTBHTBH RBC4.454.20 - 5.40 10 6/uLTBHTBH HGB12.712.0 - 16.0 g/dLTBH TBH HCT38.136.0 - 48.0 %TBHTBH MCV85.681.0 - 99.0 fLTBHTBH MCH28.526.7 - 34.0 pgTBHTBH MCHC33.329.9 - 35.2 g/dLTBHTBH RDW13.311.0 - 15.0 %TBHTBH ORP733164 - 450 10 3/uLTBHTBH MPV10.09.5 - 13.5 fLTBHNEUTROPHILS PERCENT AUTO55.543.0 - 75.0 %TBHLYMPHOCYTES PERCENT AUTO27.220.5 - 60.0 %TBHMONOCYTES PERCENT AUTO8.5 1.7 - 12.0 %TBHTBH EO %7.8(H)0.9 - 7.0 %TBHBASOPHILS PERCENT AUTO0.90.2 - 2.0 %TBHIMMATURE GRANULOCYTES PCT AUTO0.10.0 - 0.5 %TBHNEUTROPHILS ABSOLUTE AUTO 3.81.4 - 6.5 10 3/uLTBHLYMPHOCYTES ABSOLUTE AUTO1.91.2 - 3.8 10 3/uLTBH MONOCYTES ABSOLUTE AUTO0.60.3 - 0.8 10 3/uLTBHTBH EO #0.50.0 - 0.7 10 3/uLTBH BASOPHILS ABSOLUTE AUTO0.10.0 - 0.1 10 3/uLTBHIMMATURE GRANULOCYTES ABS AUTO 0.010.00 - 0.03 10 3/uLTBHSpecimen (Source)Anatomical Location / Laterality Collection Method / VolumeCollection TimeReceived Time07/02/2025 8:25 AM EDT 07/02/2025 8:26 AM EDT Narrative CLINISYNC - 07/02/2025 8:34 AM EDT Authorizing ProviderResult TypeResult StatusGeneric External Data Provider CLINISYNCFinal ResultPerforming OrganizationAddressCity/State/ZIP CodePhone Number * XR CHEST 2V (06/18/2025 11:04 AM EDT)Anatomical RegionLateralityModalityOther Specimen (Source)Anatomical Location / LateralityCollection Method / Volume Collection TimeReceived Time06/18/2025 11:04 AM EDT Narrative 06/18/2025 11:07 AM EDT [facility] ?[address] ? [place] [address] ?XRay Report ? Signed ? Patient: WOENS,JAMIE ?MR#: [id number] ?? : 1985 ?Acct:[id number] ?? Age/Sex: 40 / F ?ADM Date: 06/18/25 ?? Loc: PST ? Attending Dr: Mirlande Cox D.O. ? Ordering Physician: Mirlande Cox D.O. ?? Date of Service: 06/18/25 ?? Procedure(s): XR chest 2V ?? Accession Number(s): [id number] ? cc: LISA HAMPTON ; Mirlande Cox D.O. ? [facility] ? [address] ? [place] [address] ? Patient Name: ?? JAMIE ??OWENS ? MRN: [facility]:[id number] ? date: 1985 ?Sex: F ?? Assigned Patient Location: SURGOUT ?? Current Patient Location: SURGOUT ?? Accession/Order Number: [id number] ?? Exam Date: 06/18/2025 ??11:01 ?Report Date: 06/18/2025 ??11:04 ? At the request of: ?? MIRLANDE ??KENNY ??DO ? Procedure: ??XR chest 2V ? PA AND LATERAL CHEST: ? CLINICAL HISTORY: Preoperative clearance ? COMPARISON: None ? There is no focal parenchymal consolidation, effusion or pneumothorax. ?? The ?? cardiac, hilar and mediastinal silhouettes are within normal limits. ?? There ?? is no vascular congestion. ?? The visualized bony thorax is intact. ?? Nipple ?? piercings are noted. ? XR/XR chest 2V ?? IMPRESSION: ? NO ACUTE CARDIOPULMONARY ABNORMALITY. ? Impression dictated by: Jesenia Loving M.D. ??06/18/2025 11:04 AM ? Dictation Location: RADIO-PC-30 ? Electronically authenticated by: [id number] ??Y ?? Date: 06/18/2025 ??11:04 ? Dictated By: ?Jesenia Loving M.D. ? Signed By: ?08/08/25 1107 ? DD/ 1104 ? TD/TT: ? Anesthesiologist Attending: Procedure Note Radiology, Radiologist, - 06/18/2025 [place] [address] XRay Report Signed Patient: JAMIE OWENSMR#: [id number] : 1985Acct:[id number] Age/Sex: 40 / FADM Date: 06/18/25 Loc: PST Attending Dr: Mirlande Cox D.O. Ordering Physician: Mirlande Cox D.O. Date of Service: 06/18/25 Procedure(s): XR chest 2V Accession Number(s): [id number] cc: LISA HAMPTON ; Mirlande Cox D.O. [facility] [place] [id number] Patient Name: JAMIE OWENS MRN: [id number] date: 1985 Sex: F Assigned Patient Location: SURGOUT Current Patient Location: SURGOUT Accession/Order Number: [id number] Exam Date: 06/18/2025 11:01 Report Date: 06/18/2025 11:04 At the request of: MIRLANDE COX DO Procedure: XR chest 2V PA AND LATERAL CHEST: CLINICAL HISTORY: Preoperative clearance COMPARISON: None There is no focal parenchymal consolidation, effusion or pneumothorax.The cardiac, hilar and mediastinal silhouettes are within normal limits.There is no vascular congestion. The visualized bony thorax is intact.Nipple piercings are noted. XR/XR chest 2V IMPRESSION: NO ACUTE CARDIOPULMONARY ABNORMALITY. Impression dictated by: Jesenia Loving M.D. 06/18/2025 11:04 AM Dictation Location: [place] [address] Electronically authenticated by: [id number] Y Date: 1:04 Dictated By: Jesenia Loving M.D. Signed By:06/18/25 1107 DD/ 1104 TD/TT: Anesthesiologist Attending: Authorizing ProviderResult TypeResult StatusGeneric External Data Provider CLINISYNC IMAGINGFinal Result * ECG 12-LEAD (06/18/2025 8:33 AM EDT)Anatomical RegionLateralityModalityOther Specimen (Source)Anatomical Location / LateralityCollection Method / Volume Collection TimeReceived Time06/18/2025 8:33 AM EDT Narrative 06/19/2025 7:36 AM EDT [facility] ?[address] ? [place] [address] ? Electrocardiograph Report ? Signed ? Patient: OWENS,JAMIE ?MR#: [id number] ?? : 1985 ?Acct:[id number] ?? Age/Sex: 40 / F ?ADM Date: 06/18/25 ?? Loc: PST ? Attending Dr: Mirlande Cox D.O. ? Ordering Physician: Mirlande Cox D.O. ?? Date of Service: 06/18/25 ?? Procedure(s): ECG 12 lead ?? Accession Number(s): [id number] ? cc: ?[facility] ? Test Date: ?2025-06-18 ?? Pat Name: ? JAMIE OWENS ? Department: ? Room: ? - ?? Gender: ? Female ? Plate Keeper: ? : ?1985 ? Requested By: MIRLANDE COX ?? Order Number: [id number] ?Reading MD: ?? ELMER ??Guy BLAS. ? Measurements ?? Intervals ?[place] ? Rate: ? 74 ? P: ?71 ?? MN: ? 163 ?QRS: ?58 ?? QRSD: ? 71 ? T: ?58 ?? QT: ? 367 ? QTc: ?409 ? Interpretive Statements ?? SINUS RHYTHM ?? Normal ECG ?? No previous ECG available for comparison ?? Electronically Signed On 06-19-2025 7:36:40 EDT by ELMER ??Alda BLAS ? Dictated By: ?ELMER BLAS ? Signed By: ?08/09/25 0736 ? DD/ 0833 ? TD/TT: ? Anesthesiologist Attending: Procedure Note Radiology, Radiologist, MD - 06/19/2025 [place] [address] Electrocardiograph Report Signed Patient: JAMIE OWENSMR#: [id number] : 1985Acct:[id number] Age/Sex: 40 / FADM Date: 06/18/25 Loc: [facility] Attending Dr: Mirlande Cox D.O. Ordering Physician: Mirlande Cox D.O. Date of Service: 06/18/25 Procedure(s): ECG 12 lead Accession Number(s): [id number] cc: [facility] Test Date: 2025-06-18 Pat Name: JAMIE OWENS Department: Room: - Gender: Female Plate Keeper: : 1985 Requested By: MIRLANDE COX Order Number: [id number] Reading MD: ELMER BLAS M.D. Measurements Intervals [place] Rate: 74 P: 71 MN: 163 QRS: 58 QRSD: 71 T: 58 QT: 367 QTc: 409 Interpretive Statements SINUS RHYTHM Normal ECG No previous ECG available for comparison Electronically Signed On 06-19-2025 7:36:40 EDT by ELMER BLAS M.D. Dictated By: ELMER BLAS Signed By:06/19/25735 DD/ 2 TD/TT: Anesthesiologist Attending: Authorizing ProviderResult TypeResult StatusGeneric External Data Provider CLINISYNC IMAGINGFinal Result * Pap Smear (06/03/2025 12:00 AM EDT)Specimen (Source)Anatomical Location / LateralityCollection Method / VolumeCollection TimeReceived TimeSwabCervical swab / Unknown Narrative Authorizing ProviderResult TypeResult StatusCorey Kenny [facility] CYTOLOGY ORDERABLESFinal ResultPerforming OrganizationAddressCity/State/ZIP CodePhone Number EXTERNAL LAB * THINPREP PAP AND HPV MRNA E6/E7 REFLEX HPV 16,18/45 (01/31/2023)ComponentValue Ref RangeTest MethodAnalysis TimePerformed AtPathologist SignatureCLINICAL INFORMATION:None givenNOMS LEGACY EXTERNAL LABLMP:NONE GIVENNOMS LEGACY EXTERNAL LABPREV. PAP:NONE GIVENNOMS LEGACY EXTERNAL LABPREV. BX:NONE GIVEN [facility] LEGACY EXTERNAL LABSOURCE:None givenNOMS LEGACY EXTERNAL LABSTATEMENT OF ADEQUACY:SEE COMMENTNOMO LEGACY EXTERNAL LABComment: Satisfactory for evaluation. Endocervical/transformation zone component present. INTERPRETATION/RESULT:Negative for intraepithelial lesion or malignancy.N[facility] LEGACY EXTERNAL LABCYTOTECHNOLOGIST:SEE COMMENTNOMS LEGACY EXTERNAL LABComment: RLP, CT(ASCP) CT screening location: [place] [address]. COMMENTSEE COMMENTNOMO LEGACY EXTERNAL LABComment: EXPLANATORY NOTE: The Pap is a screening test for cervical cancer. It is not a diagnostic test and is subject to false negative and false positive results. It is most reliable when a satisfactory sample, regularly obtained, is submitted with relevant clinical findings and history, and when the Pap result is evaluated along with historic and current clinical information. HPV MRNA E6/E7Not DetectedNot DetectedNOMS LEGACY EXTERNAL LABComment: Methodology: Vendor Management Associate-Mediated Amplification This assay detects E6/E7 viral messenger RNA (mRNA) from 14 high-risk HPV types (16,18,31,33,35,39,45,51,52,56,58,59,66,68). Cervical sources are required for HPV testing. If a vaginal source from a patient who has had a total hysterectomy with removal of cervix was submitted, please contact the testing laboratory for alternative testing options. For additional information, please refer to http://education.DNA SEQ.eRepublik/faq/FNN884q0 (This link if provided for information/ educational purposes only.) Specimen (Source)Anatomical Location / LateralityCollection Method / Volume Collection TimeReceived Time01/31/2023 Narrative Authorizing ProviderResult TypeResult StatusValered LERMA LABSFinal ResultPerforming OrganizationAddressCity/State/ZIP CodePhone Number [facility] LEGACY EXTERNAL LAB from Last 3 Months or Most Recently Relevant to Health Maintenance Additional Health Concerns Active ProblemsNoted DateDiagnosed DatePatient on antidepressant monitoring plan 4Baseline PHQ-9007/01/2024 Insurance Care Teams Team MemberRelationshipSpecialtyStart DateEnd Date Lisa Hampton MD [address] [place] [address] [facility] - [facility] Mirella Parekh NP PCP - [facility]11/11/24
--- OUTSIDE RECORDS SUMMARY | 2025-09-17 12:35 | XMS_ITS | Clinical Summary ---
Author Organization [facility] tem Address [id number] [address] [place] [address] Care Team Providers Care Utility Driver Name Role Phone Lisa Grady MD Primary Care Provider [phone] Allergies Active AllergyReactionsCriticalityNoted XfknEybddelaLppyatbgojRrsoSio26/29/2025 PrednisoneOther (See Comments)12/09/2024 Light headed Medications * This document contains information received from the source organization and may not represent a complete record from that organization. MedicationSigDispense QuantityRefillsLast FilledStart DateEnd DateStatus SUMAtriptan (IMITREX) 100 mg tablet Indications:New daily persistent headache,Intractable chronic migraine without aura and with status migrainosusTake 1 tablet (100 mg total) by mouth once as needed for migraine. May repeat in 2 hours if unresolved. Do not exceed 200 mg in 24 hours. 9 tablet 3Active lidocaine (LIDODERM) 5 % Place 1 patch on the skin daily. Remove & Discard patch within 12 hours or as directed by MD 30 patch 4Active metoprolol succinate XL (TOPROL XL) 50 mg 24 hr tablet Take 1 tablet (50 mg total) by mouth in the morning.5Active dicyclomine (BENTYL) 20 mg tablet Take 1 tablet (20 mg total) by mouth in the morning and 1 tablet (20 mg total) before bedtime. 20 tablet 5Active cholecalciferol, vitamin D3, 2,000 units capsule Indications:Vitamin D deficiencyTake 1 capsule (2,000 Units total) by mouth in the morning. 30 capsule 5Active FLUoxetine (PROzac) 20 mg capsule Indications:Bipolar 1 disorder, mixed, severe (CMS-HCC),Generalized anxiety disorder with panic attacksTake 1 capsule (20 mg total) by mouth in the morning. 30 capsule 5Active topiramate (TOPAMAX) 50 mg tablet Indications:Weight gain due to medicationTake 1 tablet (50 mg total) by mouth in the morning and 1 tablet (50 mg total) before bedtime. 30 tablet 5Active metFORMIN XR (GLUCOPHAGE XR) 500 mg 24 hr tablet Indications:Weight gain due to medicationTake 1 tablet (500 mg total) by mouth daily with dinner. 30 tablet 5Active QUEtiapine (SEROquel) 100 mg tablet Indications:Bipolar 1 disorder, mixed, severe (CMS-HCC)Take 2.5 tablets (250 mg total) by mouth nightly. 75 tablet 5Active ALPRAZolam (XANAX) 0.5 mg tablet Indications:Generalized anxiety disorder with panic attacksTake 1 tablet (0.5 mg total) by mouth 2 (two) times a day as needed for anxiety. 30 tablet 5Active ALPRAZolam (XANAX) 0.5 mg tablet Indications:Generalized anxiety disorder with panic attacksTake 1 tablet (0.5 mg total) by mouth 2 (two) times a day as needed for anxiety. 30 tablet Discontinued(Reorder) QUEtiapine (SEROquel) 100 mg tablet Indications:Bipolar 1 disorder, mixed, severe (CMS-HCC)Take 2 tablets (200 mg total) by mouth nightly. 60 tablet Discontinued Active Problems ProblemNoted DateDiagnosed DateLumbosacral spondylosis without myelopathy 4Post concussion obcyhyjh94/06/2022Intractable chronic migraine without aura and with status nrfugysvops78/06/2022ipolar 1 disorder, depressed, severe 09/27/2022Generalized anxiety disorder with panic pgngfjy3209/06/2022ost traumatic stress disorder (PTSD)09/06/2022 Encounters * This document contains information received from the source organization and may not represent a complete record from that organization. DateTypeDepartmentCare SfefQwradapmgqd91/17/2025Telephone [facility] - Pharmacy Medication Management [address] [place] [address] Shaun Lyon, [facility] 08/24/20256486Vsrswk13/24/2025 10:28 AM EDT - 08/04/2025 11:59 PM EDTHospital Encounter [facility] [address] [place] [address] Diarrhea, unspecified type; Abdominal cramps; Gas bloat syndrome Discharge Disposition: Home08/03/20251067Flwyqr58/16/2025Results [facility] [address] [place] [address] Brit Lantigua, CNC MACHINE OPERATOR-[employer] Hemoglobin A1c, Lipid mxtwtcd8107/27/20250598Gomkge61/16/2025Orders Only [facility] [address] [place] [address] Brit Lantigua, CNC MACHINE OPERATOR-[employer] Assessment of effects of psychotropic drug in patient at risk for metabolic syndrome (Primary Dx)07/22/20250495Egqtpi94/08/2857Huvvea79/19/8979Puvscj78/07/2025 Travelfrom Last 3 Months Immunizations ImmunizationAdministration DatesNext HxfSVL2501/29/2020(),01/27/2020(Deferred: - IMMUNE)Tdap01/29/2020(),01/27/2020()Kvcbtpafb08/20/2020(Deferred: - Immunity) Family History Medical HistoryRelationNameCommentsAnxiety disorderFatherBipolar disorderFather Pancreatic cancerFatherDepressionMaternal AuntHypertensionMaternal Grandmother HypertensionMotherBreast cancerPaternal GrandmotherDiabetesPaternal Grandmother DepressionPaternal UncleRelationNameStatusCommentsFatherDeceasedMaternal Aunt AliveMaternal GrandmotherMotherAlivePaternal GrandmotherPaternal UncleAlive Social History Tobacco UseTypesPacks/DayYears UsedDateSmoking Tobacco: AmeyfyKsccwgrzee9872209 - 2018Vaping/E-cigarettesSmokeless Tobacco: Never Tobacco Cessation:Counseling Given: Not Answered Alcohol UseStandard Drinks/WeekCommentsNot Currently0 (1 standard drink = 0.6 oz pure alcohol)PHQ-2AnswerDate RecordedTotal Bfjox2192/29/2025ChildcareAnswerDate XxynazpjKhjmwwlipUtnijnx80/12/2019EmploymentAnswerDate RecordedEmploymentUnknown 04/22/2019Hunger ScreeningAnswerDate RecordedWithin the past 12 months we worried whether our food would run out before we got money to buy more.Never True03/26/2025Within the past 12 months the food we bought just didn't last and we didn't have money to get more.Never True03/26/2025Purpose - LifeAnswerDate RecordedPurpose and direction in vygvShbquod06/11/2021EducationAnswerDate RecordedWhat is the highest level of school you have completed or the highest degree you have received?Some college, no vxiuew082CommentsNoSex and Gender InformationValueDate RecordedSex Assigned at BirthNot on fileLegal RbdSywszd40/06/2015 11:39 AM EDTGender IdentityNot on fileSexual OrientationNot on file Last Filed Vital Signs Vital SignReadingTime TakenCommentsBlood Vlkcgbwt478/71003/26/2025 11:45 PM EDT Zzgpp281303/26/2025 11:45 PM OKTVlwgkcfgclh55.8 ??C (98.3 ??F)03/26/2025 11:15 PM EDTRespiratory Bqpc929903/26/2025 11:45 PM EDTOxygen Erhwjlykoq75%03/26/2025 11:45 PM EDTInhaled Oxygen Concentration--Qaaoho56.4 kg (175 lb)03/26/2025 11:15 PM LTVBkblrz634.6 cm (5' 6 )03/26/2025 11:15 PM EDTBody Mass Index28.25003/26/2025 11:15 PM EDT Plan of Treatment Health MaintenanceDue DateLast DoneCommentsDTaP,Tdap and Td Vaccines (6 - Tdap) , 09/15/1987, 03/07/1987, Additional history existsAdult BMI Follow Up Plan2004Influenza Xvzrlyq1507/12/2025Depression Screening dult BMI Xrohdkkrl30/Tobacco Screening Pap Smear, 01/31/2023 Medical Devices Not on file Procedures Procedure NamePriorityDate/TimeAssociated DiagnosisCommentsCT ABDOMEN AND PELVIS W OILBEnsvovs51/24/2025 11:09 AM EDT Diarrhea, unspecified type Abdominal cramps Gas bloat syndrome LIPID QKWQKJWTkkttjf77/16/2025 10:37 AM EDT Assessment of effects of psychotropic drug in patient at risk for metabolic syndrome HEMOGLOBIN D1WRtkfvrq10/16/2025 10:37 AM EDT Assessment of effects of psychotropic drug in patient at risk for metabolic syndrome HEMOGLOBIN W2PCdudghs45/11/2025 12:01 PM EDT Assessment of effects of psychotropic drug in patient at risk for metabolic syndrome LIPID RJPOYXBMhynfpm78/11/2025 12:01 PM EDT Assessment of effects of psychotropic drug in patient at risk for metabolic syndrome CALPROTECTIN, IAqddudu18/22/2025 6:23 AM EDT Diarrhea, unspecified Unspecified abdominal pain Other specified diseases of the digestive system C DIFFICILE BY CMLBfhllsc48/22/2025 6:23 AM EDT Diarrhea, unspecified Unspecified abdominal pain Other specified diseases of the digestive system HIV 1&2 AB/AG SCREEN (P24 AG)Xrnpuck4007/01/2025 11:48 AM EDT Diarrhea, unspecified Unspecified abdominal pain Other specified diseases of the digestive system ERYTHROCYTE SEDIMENTATION RATE (ESR)Licahqx0807/01/2025 11:48 AM EDT Diarrhea, unspecified Unspecified abdominal pain Other specified diseases of the digestive system C-REACTIVE BQQFJBMKqzevpd50/21/2025 11:48 AM EDT Diarrhea, unspecified Unspecified abdominal pain Other specified diseases of the digestive system from Last 3 Months Results * CT abdomen and pelvis with contrast (08/04/2025 11:09 AM EDT)Anatomical Region LateralityModalityBody, Abdomen, Body CoveraN/AComputed TomographySpecimen (Source)Anatomical Location / LateralityCollection Method / VolumeCollection TimeReceived Time08/04/2025 11:54 AM EDT Narrative 08/04/2025 11:59 AM EDT CLINICAL HISTORY: Abdominal pain and bloating. CT ABDOMEN AND PELVIS WITH CONTRAST: 08/04/2025 COMPARISON: 12/13/2024 PROCEDURE: Axial images were obtained through the abdomen and pelvis after oral contrast ingestion and 100 mL Omnipaque 300 intravenously. Coronal and sagittal reconstructions were performed. All CT scans at this facility use dose modulation, iterative reconstruction, and/or weight based dosing when appropriate to reduce radiation dose to as low as reasonably achievable. FINDINGS : The visualized lower lungs and pleural spaces are clear. No focal hepatic, splenic, pancreatic, adrenal, or acute biliary abnormality is evident. Renal enhancement appears symmetric. There is no focal irregularity. No hydronephrosis or perinephric fluid is present. The ureters and urinary bladder are within normal limits. Pelvic organs are notoptimally evaluated by CT with no acute abnormality evident. There is no free intracranial gas or fluid. No dilated bowel loops are present. The appendix appears within normal limits. A few air-fluid levels within the colon are nonspecific. The distal colon isgrossly within normal limits. No acute osseous abnormality is present within the visualized spine or pelvis. IMPRESSION: Nonspecific colonic air-fluid levels with no focal abnormality or findings of obstruction. Otherwise normal CT abdomen and pelvis with no change in appearance compared to the prior study. Finalized by Dennis Davis MD on 08/04/2025 11:59 AM Procedure Note Dennis Davis MD - 08/04/2025 CLINICAL HISTORY: Abdominal pain and bloating. CT ABDOMEN AND PELVIS WITH CONTRAST: 08/04/2025 COMPARISON: 12/13/2024 PROCEDURE: Axial images were obtained through the abdomen and pelvis afteroral contrast ingestion and 100 mL Omnipaque 300 intravenously. Coronaland sagittal reconstructions were performed. All CT scans at this facilityuse dose modulation, iterative reconstruction, and/or weight based dosingwhen appropriate to reduce radiation dose to as low as reasonably achievable. FINDINGS : The visualized lower lungs and pleural spaces are clear. No focal hepatic, splenic, pancreatic, adrenal, or acute biliaryabnormality is evident. Renal enhancement appears symmetric. There is no focal irregularity. No hydronephrosis or perinephric fluid is present. The ureters and urinarybladder are within normal limits. Pelvic organs are not optimallyevaluated by CT with no acute abnormality evident. There is no free intracranial gas or fluid. No dilated bowel loops arepresent. The appendix appears within normal limits. A few air-fluid levelswithin the colon are nonspecific. The distal colon is grossly withinnormal limits. No acute osseous abnormality is present within the visualized spine orpelvis. IMPRESSION: Nonspecific colonic air-fluid levels with no focal abnormality or findingsof obstruction. Otherwise normal CT abdomen and pelvis with no change in appearancecompared to the prior study. Finalized by Dennis Davis MD on 08/04/2025 11:59 AM Authorizing ProviderResult TypeResult StatusImad [facility] CT ORDERABLESFinal Result * (ABNORMAL) Hemoglobin A1c (07/27/2025 10:37 AM EDT) Only the most recent of2 resultswithin the time period is included. ComponentValueRef RangeTest MethodAnalysis TimePerformed AtPathologist Signature HEMOGLOBIN A1C6.0(H)4.4 - 5.6 %07/27/2025 1:59 PM [facility]ORYComment: ?ADA Guidelines ?Result ?HgbA1c ? Normal : ? less than 5.7 % ? Prediabetes : ?5.7 % ??to 6.4 % Diabetes : > 6.4 % ?Use with caution in patients with abnormal hemoglobin variants as ??the half-life of red blood cells and in vivo glycation rates are ??affected. EST. AVERAGE HRYQWPB811av/dL07/27/2025 1:59 PM [facility] LABORATORYSpecimen (Source)Anatomical Location / LateralityCollection Method / VolumeCollection TimeReceived TimeBloodVenous blood / UnknownVenipuncture / Aokefhp1607/27/2025 10:37 AM EDT07/27/2025 10:37 AM EDT Narrative Authorizing ProviderResult TypeResult StatusJaclyn Tboy Lantigua APRN-CNPLAB BLOOD ORDERABLESFinal ResultPerforming OrganizationAddressCity/State/ZIP CodePhone Number [facility] [address] [place] [address], * Lipid profile (07/27/2025 10:37 AM EDT) Only the most recent of2 resultswithin the time period is included. ComponentValueRef RangeTest MethodAnalysis TimePerformed AtPathologist Signature SSCHMVUNMSS108153 - 200 mg/dL07/27/2025 2:03 PM [facility] EADMBVYTEJBOQIRMNGHNJW65972 - 150 mg/dL07/27/2025 2:03 PM [facility] LABORATORYHDL JZIPIUSZZMT05>39 mg/dL07/27/2025 2:03 PM [facility]ORYComment: HDL <40 mg/dL - High Risk HDL > or = 40mg/dL- Desirable HDL >60 mg/dL - Negative Risk LDL (CALC)103<130 mg/dL07/27/2025 2:03 PM [facility] Comment: LDL <100 mg/dL - Desirable LDL >160 mg/dL - High Risk CHOLESTEROL:HDL3.31.0 - 5.009/ 2:03 PM [facility] LABORATORYVERY LOW CGHRRXVDQJY595 - 30 mg/dL07/27/2025 2:03 PM [facility] LABORATORYSpecimen (Source)Anatomical Location / Laterality Collection Method / VolumeCollection TimeReceived TimeBloodVenous blood / UnknownVenipuncture / Troctef7207/27/2025 10:37 AM EDT07/27/2025 10:37 AM EDT Narrative Authorizing ProviderResult TypeResult StatusJaalfredo Toby Lantigua CNC MACHINE OPERATOR-CNPLAB BLOOD ORDERABLESFinal ResultPerforming OrganizationAddressCity/State/ZIP CodePhone Number [facility] [address] [place] [address], * Calprotectin, F (07/02/2025 6:23 AM EDT)ComponentValueRef RangeTest Method Analysis TimePerformed AtPathologist SignatureCALPROTECTIN, F<50.0<50.0 (Normal) mcg/g007/05/2025 8:06 PM [facility]ATORIESComment: Test Performed by: [facility] [address] [place] [address] Dust Collector Attendant: Disha Massey Ph.D.; CLIA# [id number] Specimen (Source)Anatomical Location / LateralityCollection Method / Volume Collection TimeReceived TimeStoolFeces / Oowycjv7207/02/2025 6:23 AM EDT07/02/2025 7:25 AM EDT Narrative Authorizing ProviderResult TypeResult StatusDora Ortega MDBODY FLUIDS AND STOOLS ORDERABLESFinal ResultPerforming OrganizationAddressCity/State/ZIP CodePhone Number [facility] [address] [place] [address], * C difficile by PCR (07/02/2025 6:23 AM EDT)ComponentValueRef RangeTest Method Analysis TimePerformed AtPathologist SignatureTOXIGENIC C DIFFNegativeNegative 07/02/2025 2:42 PM [facility] LLNDSDWSNF025 TIN5Vhvrpechdhb NegativePresumptive Tzrbjapp21/22/2025 2:42 PM [facility]ATORYComment:Assay methodology is nucleic acid amplification by real-time PCR for detection of C. difficile toxin gene sequences performed on [employer]ik[employer] Instrument System.Specimen (Source)Anatomical Location / Laterality Collection Method / VolumeCollection TimeReceived TimeStoolFeces / Unknown 07/02/2025 6:23 AM EDT07/02/2025 7:25 AM EDT Narrative Authorizing ProviderResult TypeResult StatusImad Jordan DEL CID FLUIDS AND STOOLS ORDERABLESFinal ResultPerforming OrganizationAddressCity/State/ZIP CodePhone Number [facility] [address] [place] [address], * HIV 1&2 AB/AG Screen (P24 AG) (07/01/2025 11:48 AM EDT)ComponentValueRef Range Test MethodAnalysis TimePerformed AtPathologist SignatureHIV 1 AND 2 AB/AG USNERSQvr-FnkmdjpmRzo-Dzdjwovh62/21/2025 6:37 PM [facility]ATORYSpecimen (Source)Anatomical Location / LateralityCollection Method / VolumeCollection TimeReceived TimeBloodVenous blood / UnknownVenipuncture / Ppkdoit6307/01/2025 11:48 AM EDT07/01/2025 11:49 AM EDT Narrative [facility] - 07/01/2025 6:37 PM EDT This information has been disclosed to you from confidential records protected from disclosure by state law. You shall make no further disclosure of this information without the specific, written and informed release of the individual to whom it pertains, or as otherwise permitted by state law. A general authorization for the release of medical or other information is not sufficient for the purpose of the release of HIV test results or diagnoses. Authorizing ProviderResult TypeResult StatusImad Jordan CHACON BLOOD ORDERABLES Final ResultPerforming OrganizationAddressCity/State/ZIP CodePhone Number [facility] [address] [place] [address], * Erythrocyte Sedimentation Rate (ESR) (07/01/2025 11:48 AM EDT)ComponentValue Ref RangeTest MethodAnalysis TimePerformed AtPathologist SignatureESR, Erythrocyte Sedimentation Opdf243 - 20 mm/h007/01/2025 6:12 PM [facility]ATORYSpecimen (Source)Anatomical Location / Laterality Collection Method / VolumeCollection TimeReceived TimeBloodVenous blood / UnknownVenipuncture / Yajtkqs4807/01/2025 11:48 AM EDT07/01/2025 11:49 AM EDT Narrative Authorizing ProviderResult TypeResult StatusImad Asaad MDLAB BLOOD ORDERABLES Final ResultPerforming OrganizationAddressCity/State/ZIP CodePhone Number [facility] [address] [place] [address], * C-reactive protein (07/01/2025 11:48 AM EDT)ComponentValueRef RangeTest Method Analysis TimePerformed AtPathologist SignatureC REACTIVE PROTEIN0.3<=0.7 mg/dL 07/01/2025 5:55 PM [facility]ATORYSpecimen (Source) Anatomical Location / LateralityCollection Method / VolumeCollection Time Received TimeBloodVenous blood / UnknownVenipuncture / Cigwswl4107/01/2025 11:48 AM EDT07/01/2025 11:49 AM EDT Narrative Authorizing ProviderResult TypeResult StatusImad Asaad MDLAB BLOOD ORDERABLES Final ResultPerforming OrganizationAddressCity/State/ZIP CodePhone Number [facility] [address] [place] [address], from Last 3 Months Insurance Advance Directives * Full Code (Latest Code Status on File) Date ActivatedDate InactivatedComments01/27/2020 1:16 PM01/29/2020 2:04 PM * Full Code Date ActivatedDate InactivatedComments07/10/2018 2:51 PM07/12/2018 9:44 PM Care Teams Team MemberRelationshipSpecialtyStart DateEnd Date Lisa Grady MD [address] [place] [address] PCP - GeneralFamily Medicine12/31/24
[2025-09-17 13:08] LABS: Hematocrit 36.3 % (36.0-48.0); Hemoglobin 12.2 g/dL (12.0-16.0); Immature Granulocytes Abs Auto 0.01 10^3/uL (0.00-0.03); Immature Granulocytes Pct Auto 0.2 % (0.0-0.5); Lymphocytes Absolute Auto 2.3 10^3/uL (1.2-3.8); Mean Corpuscular HGB Conc 33.6 g/dL (29.9-35.2); Mean Corpuscular Hemoglobin 28.4 pg (26.7-34.0); Mean Corpuscular Volume 84.6 fL (81.0-99.0); Platelet Count 308 10^3/uL (150-450); Red Blood Count 4.29 10^6/uL (4.20-5.40); White Blood Count 5.6 10^3/uL (4.0-11.0)
[2025-09-17 13:24] LABS: INR 1.03; Partial Thromboplastin Time 28.5 sec (22.3-36.2); Prothrombin Time 10.9 sec (9.0-11.6)
[2025-09-17 13:41] LABS: Alanine Aminotransferase 20 U/L (14-59); Albumin Globulin Ratio 1.2; Albumin Level 3.8 g/dL (3.4-5.0); Alkaline Phosphatase 113 U/L (46-116); Anion Gap 14.3; Aspartate Amino Transferase 15 U/L (15-37); Blood Urea Nitrogen 15.0 mg/dL (7.0-18.0); Calcium 9.1 mg/dL (8.5-10.1); Carbon Dioxide 21.3 mmol/L (21.0-32.0); Chloride 109 mmol/L (98-107); Estimated GFR (African America >60 (>=60 mL/min/1.73m^2); Estimated GFR (Non-African Ame 60 (>=60 mL/min/1.73m^2); Globulin 3.2 g/dL; Glucose 100 mg/dL (74-106); Potassium 3.6 mmol/L (3.5-5.1); Sodium 141 mmol/L (136-145); Total Protein 7.0 g/dL (6.4-8.2)
== END 2025-09-17 12:32 | disposition home or self-care (01) ==
LOC: PST 12:32
PROVIDERS: PCP Family Medicine; Visit Provider Obstetrics & Gynecology
DX: Z01.812 Encounter for preprocedural laboratory examination (principal); N92.0 Excessive and frequent menstruation with regular cycle; N94.6 Dysmenorrhea, unspecified; N94.10 Unspecified dyspareunia
CPT/HCPCS: 80048; 80076; 85025; 85610; 85730; 86850; 86900; 86901

== ENCOUNTER 2025-09-21 06:05 | Inpatient (IN) | payer OTHER, SELFPAY ==
--- OUTSIDE RECORDS SUMMARY | 2023-12-13 05:15 | XMS_ITS | Continuity of Care Document ---
Author Organization [facility] Address [address] [place] [address] Phone Care Team Providers Care Design And Sales Consultant Name Role Phone Roshan Brooks DDS Unavailable Unavailable Allergies, Adverse Reactions, Alerts Substance Reaction Status Criticality No Known Allergies Active No Inform ation Medications Medication Instructions Dosage Effective Dates (start - stop) Status Comments Klonopin 1 mg tablet take 1 tablet by or al route 3 times every day 1 MG - Active Procedures Procedure Date Resin Composite 3s; Posterior 4 Oral Hygiene Instruction Resin Composite 2s; Posterior 4 Oral Hygiene Instruction Resin Composite 2s; Posterior 3 Resin Composite 2s; Posterior 3 Resin One Surface; Anterior Resin One Surface; Anterior Prophylaxis Adult Nutrit Couns For Control Of [place] Dis Sep Oral Hygiene Instruction Intraoral-complete Series (bw) 23 Comp Oral Eval New/estab Patient 2022 Oral Hygiene Instruction Oral Hygiene Instruction Limited Oral Eval Extraction Surgical/erupt Tooth 021 Nutrit Couns For Control Of [place] Dis Sep Bitewig-single Film Intraoral-periapical 1st Film Advance Directives Directive Yes / No Effective Date File Name No Information Encounters Encounter Description Practice Location Reason(s) For Visit Diagnoses Date Provider Providers Copied on Encounter [facility], [address] [place] [address], [id number], [place] tel:[phone] Dental Clinic khang (chief complaint) Body mass index [BMI] 25.0-25.9, adultEncounter for screening for dental disorders [facility]. [address] [place] [address], [id number], [place]. tel:[phone] [facility], [address] [place] [address], [id number], [place] tel:[phone] Dental Clinic Filling (chief complaint) Body mass index [BMI] 25.0-25.9, adultEncounter for screening for dental disorders [facility]. [address] [place] [address], [id number], [place]. tel:[phone] [facility], [address] [place] [address], [id number], [place] tel:[phone] Dental Clinic khang (chief complaint) Encounter for screening for dental disorders [facility]. [address] [place] [address], [id number], [place]. [phone] [facility], [address] [place] [address], [id number], [place] tel:[phone] Dental Clinic Filing (chief complaint) Encounter for screening for dental disorders [facility]. [address] [place] [address], [id number], [place]. tel:[phone] [facility], [address] [place] [address], [id number], [place] tel:[phone] [facility] [place] (chief complaint) Encounter for screening for dental disorders [facility]. [address] [place] [address], [address], [place]. tel:[phone] [facility], [address] [place] [address], [id number], [place] tel:[phone] [facility] Dental Clinic dental new (chief complaint) Encounter for screening for dental disorders Christopher DDS Rivka. . tel:[phone] [facility], [address] [place], [place], [id number], [place] tel:[phone] Dental Clinic Dental Emergency (chief complaint) Encounter for screening for dental disorders Natalio Modi. [address] [place], [address], [place]. [phone] Family History Family Member Type Diagnosis Age At Onset Mother Problem hypertension Father Problem malignant neoplasm of pancre as Father Problem stroke Mother Problem Alive and well Payers Payer name Insurance type Covered alliance party ID Authoriza tion(s) D CareSource [employer] [facility] [id number] D Medicaid [facility] [id number] Social History Type Description Quantity Date Captured Comments Alcohol Use Details Unknown Caffeine Use Details Unknown Tobacco Use Status Current non-smoker Smoking Status Never smoker Sex Female Sexual Orientation Straight or heterosexual Gender Identity Female Vital Signs Date / Time: Height Weight BMI Pulse Rate Blood Pressure Temperature Respiratory Rate Body Surface Area Head Circumference Head Circ. Percentile Wt./Alex. Percentile BMI percentile Pulse Ox Inhaled Ox 10:24 AM 64.00 in 68.039 kg (150.00 lbs) 25.7 5 kg/m eter (2) 75 /min 116/80 mm[Hg] 97.50 F Chief Complaint And Reason For Visit From encounter dated '12/13/2023 10:15'. khang (chief complaint). Description: khang Reason For Referral Reason For Referral No Information Plan Of Treatment Date Type Action Status Goal HPV. Due on due Goal Unhealthy drug use screening . Due on due Goal Hepatitis C screening. Due o n due Goal Depression screening. Due on due Goal Influenza vaccine. Due on due Goal Tdap. Due on due Goal RLP. Due on due Goal PRAPARE ASSESSMENT. Due on due Goal Tdap Vaccine. Due on 2023 due Goal Dietary management education , guidance, and counseling completed Goal RLP. Due on due Goal Tdap. Due on due Goal Hepatitis C screening. Due o n due Goal Unhealthy drug use screening . Due on due Goal HPV. Due on due Goal Influenza vaccine. Due on due Goal Depression screening. Due on due Goal Tdap Vaccine. Due on 2023 due Goal PRAPARE ASSESSMENT. Due on due Goal Dietary management education , guidance, and counseling completed Goal Tdap Vaccine. Due on 2022 due Goal HPV. Due on due Goal Influenza vaccine. Due on due Goal Unhealthy drug use screening . Due on due Goal RLP. Due on due Goal Depression screening. Due on due Goal PRAPARE ASSESSMENT. Due on due Goal Tdap. Due on due Goal Hepatitis C screening. Due o n due Goal Tdap Vaccine. Due on 2022 due Goal Hepatitis C screening. Due o n due Goal PRAPARE ASSESSMENT. Due on D due Goal Unhealthy drug use screening . Due on due Goal Influenza vaccine. Due on due Goal HPV. Due on due Goal Depression screening. Due on due Goal Tdap. Due on due Goal RLP. Due on due Goal Tdap Vaccine. Due on 2022 due Goal PRAPARE ASSESSMENT. Due on N due Goal Hepatitis C screening. Due o n due Goal RLP. Due on due Goal Depression screening. Due on due Goal Tdap. Due on due Goal Influenza vaccine. Due on No due Goal Unhealthy drug use screening . Due on due Goal Hep A. Due on du e Goal HPV. Due on due Goal Hepatitis C screening. Due o n due Goal Tdap Vaccine. Due on 2022 due Goal Hep A. Due on du e Goal Tdap. Due on due Goal RLP. Due on due Goal Influenza vaccine. Due on No due Goal Depression screening. Due on due Goal Unhealthy drug use screening . Due on due Goal PRAPARE ASSESSMENT. Due on due Goal HPV. Due on due History Of Present Illness Encounter Date Complaint History Of Prese nt Illness khang khang Filling Continue with tr eatment khang khang Filing Continue with tr eatment PA PA dental new dental new Dental Emergency Dental Emergenc y Functional Status Date Functional Assessmen t No Information Instructions Date Instruction Additional Infor mation Dietary management e ducation, guidance, and counseling Related to Body mass index [BMI] 25.0-25.9, adult Dietary management e ducation, guidance, and counseling Related to Body mass index [BMI] 25.0-25.9, adult Assessments Type Assessment Date assessment Body mass index [BMI] 25.0-25.9, adult Patient Care Teams Name Effective Dates (start - stop) Status Members No Information
--- OUTSIDE RECORDS SUMMARY | 2023-12-13 05:15 | XMS_ITS | Continuity of Care Document ---
Author Organization [facility] Address [address] [place] [address] Phone Care Team Providers Care Banquet Captain Name Role Phone Roshan Brooks DDS Unavailable [...] Prophylaxis Adult Nutrit Couns For Control Of [place] Dis Sep Oral Hygiene Instruction Intraoral-complete Series (bw) 23 Comp Oral Eval New/estab Patient 2022 Oral Hygiene Instruction Oral Hygiene Instruction Limited Oral Eval Extraction Surgical/erupt Tooth 021 Nutrit Couns For Control Of [place] Dis Sep Bitewig-single Film Intraoral-periapical 1st Film Advance Directives Directive Yes / No Effective Date File Name No Information Encounters Encounter Description Practice Location Reason(s) For Visit Diagnoses Date Provider Providers Copied on Encounter [facility], [address] [place] [address], [id number], [place] tel:[phone] Dental Clinic khang (chief complaint) Body mass index [BMI] 25.0-25.9, adultEncounter for screening for dental disorders [facility]. [address] [place] [address], [address], [place]. tel:[phone] [facility], [address] [place] [address], [id number], [place] tel:[phone] Dental Clinic Filling (chief complaint) Body mass index [BMI] 25.0-25.9, adultEncounter for screening for dental disorders [facility]. [address] [place] [address], [id number], [place]. tel:[phone] [facility], [address] [place] [address], [id number], [place] tel:[phone] Dental Clinic khang (chief complaint) Encounter for screening for dental disorders [facility]. [address] [place] [address], [address], [place]. [phone] [facility], [address] [place] [address], [id number], [place] tel:[phone] Dental Clinic Filing (chief complaint) Encounter for screening for dental disorders [facility]. [address] [place] [address], [address], [place]. tel:[phone] [facility], [address] [place] [address], [id number], [place] tel:[phone] [facility] [place] (chief complaint) Encounter for screening for dental disorders [facility]. [address] [place] [address], [address], [place]. tel:[phone] [facility], [address] [place] [address], [id number], [place] tel:[phone] [facility] Dental Clinic dental new (chief complaint) Encounter for screening for dental disorders Christopher MEDINAS Rivka. . tel:[phone] [facility], [address] [place], [place], [id number], [place] tel:[phone] Dental Clinic Dental Emergency (chief complaint) Encounter for screening for dental disorders Natalio Modi. [address] [place], [address], [place]. tel:[phone] Family History Family Member Type Diagnosis Age At Onset Mother Problem hypertension Father Problem malignant neoplasm of pancre as Father Problem stroke Mother Problem Alive and well Payers Payer name Insurance type Covered constitution party ID Authoriza tion(s) D [employer]Source [employer] [facility] [id number] D Medicaid [facility] [id number] Social History Type Description Quantity Date Captured [...] Of Treatment Date Type Action Status Goal RLP. Due on due Goal PRAPARE ASSESSMENT. Due on F due Goal Tdap Vaccine. Due on 2023 due Goal HPV. Due on due Goal Unhealthy drug use screening . Due on due Goal Hepatitis C screening. Due o n due Goal Depression screening. Due on due Goal Influenza vaccine. Due on due Goal Tdap. Due on due Goal Dietary management education [...] education , guidance, and counseling completed Goal Tdap. Due on due Goal PRAPARE ASSESSMENT. Due on due Goal Depression screening. Due on due Goal RLP. Due on due Goal Unhealthy drug use screening . Due on due Goal Influenza vaccine. Due on due Goal HPV. Due on due Goal Tdap Vaccine. Due on 2022 due Goal Hepatitis C screening. Due o n due Goal RLP. Due on due Goal Tdap. Due on due Goal Depression screening. Due on due Goal HPV. Due on due Goal Influenza vaccine. Due on due Goal Unhealthy drug use screening . Due on due Goal PRAPARE ASSESSMENT. Due on D due Goal Tdap Vaccine. Due on 2022 due Goal Hepatitis C screening. Due o n due Goal Tdap Vaccine. Due on 2022 due Goal PRAPARE ASSESSMENT. Due on N due Goal Hepatitis C screening. Due o n due Goal Hep A. Due on du e Goal HPV. Due on due Goal RLP. Due on due Goal Depression screening. Due on due Goal Tdap. Due on due Goal Influenza vaccine. Due on due Goal Unhealthy drug use screening . Due on due Goal PRAPARE ASSESSMENT. Due on N due Goal HPV. Due on due Goal Hep A. Due on du e Goal Depression screening. Due on due Goal Unhealthy drug use screening . Due on due Goal Hepatitis C screening. Due o n due Goal Tdap Vaccine. Due on 2022 due Goal Tdap. Due on due Goal RLP. Due on due Goal Influenza vaccine. Due on No due History Of Present Illness Encounter Date [...]
[2025-09-17 12:56] VITALS: BP 104/71; PULSE 84; TEMP 36.3; O2SAT 98; BMI 27.8
[2025-09-21] VITALS (38 sets, daily range): BP systolic 71–132; BP diastolic 47–82; PULSE 64–88; TEMP 36.2–36.9; O2SAT 94–100; BMI 28.0
--- OUTSIDE RECORDS SUMMARY | 2025-09-21 06:09 | XMS_ITS | Encounter Summary ---
Author Organization [facility] Address [address] [place] [address] Care Team Providers Care Corporate Investigator Name Role Phone Lisa Grady MD Primary Care Provider [phone] Mirella Parekh [employer] Unavailable Encounter Details DateTypeDepartmentCare Team (Latest Contact Info)Xfjwedwpcjk34/11/2025bstract [facility] [address] [id number] Walter Cox DO [address] [place], [place] [id number] Social History Tobacco UseTypesPacks/DayYears UsedDateSmoking Tobacco: NeverSmokeless Tobacco: NeverAlcohol UseStandard Drinks/WeekCommentsNever0 (1 standard drink = 0.6 oz pure alcohol)B1300 Health LiteracyAnswerDate RecordedHow often do you need to have someone help you when you read instructions, pamphlets, or other written material from your doctor or pharmacy?Never07/01/2024Social Connection and Isolation PanelAnswerDate RecordedIn a typical week, how many times do you talk on the phone with family, friends, or neighbors?Patient gbirajue38/21/2024How often do you get together with friends or relatives?Patient rqyjxghg19/21/2024 How often do you attend anabaptist or mormonism services?Never4Do you belong to any clubs or organizations such as anabaptist groups, unions, fraternal or athletic groups, or school groups?No07/01/2024How often do you attend meetings of the clubs or organizations you belong to?Never07/01/2024re you , , , , never , or living with a partner?Never dfqlbfe1307/01/2024UDIT-CAnswerDate RecordedQ1: How often do you have a drink containing alcohol?Patient /21/2024Q2: How many drinks containing alcohol do you have on a typical day when you are drinking?Patient declined 07/01/2024Q3: How often do you have six or more drinks on one occasion?Less than awbbndn2707/01/2024Overall Financial Resource Strain (CARDIA)AnswerDate Recorded How hard is it for you to pay for the very basics like food, housing, medical care, and heating?Not very hard07/01/2024HQ-2AnswerDate RecordedPatient Health Questionnaire-2 Srhja133[facility] [place] [facility] - Occupational Stress QuestionnaireAnswerDate [...] were you homeless or living in a care home (including now)?No4CommentsNoSex and Gender Information ValueDate RecordedSex Assigned at BirthNot on fileLegal DkqUrkrpg07/15/2023 7:29 PM EDTGender VdjqowpoOofqao61/03/2023 1:21 PM EDTSexual OrientationStraight 08/13/2023 1:21 PM EDTdocumented as of this encounter Plan of Treatment Not on file documented as of this encounter Goals GoalPatient Goal TypeAssociated ProblemsRecent ProgressPatient-Stated?Author Help patient manage antidepressant medication Care PlanPatient on antidepressant monitoring planLisa Edwards MD Baseline PHQ-9 Care PlanBaseline PHQ-9Lisa Edwards, MDdocumented as of this encounter Visit Diagnoses Not on filedocumented in this encounter Additional Health Concerns Active ProblemsNoted DateDiagnosed DatePatient on antidepressant monitoring plan 4Baseline PHQ-9007/01/2024ssessmentNoted TimePHQ-9 Depression Total Score: 17004/28/2025 11:21 AM EDTdocumented as of this encounter Care Teams Team MemberRelationshipSpecialtyStart DateEnd Date Lisa Grady MD [address] [place] [address] PCP - GeneralFami Medicine03/19/23 Mirella Parekh NP PCP - [facility]11/11/24documented as of this encounter
--- OUTSIDE RECORDS SUMMARY | 2025-09-21 06:09 | XMS_ITS | Clinical Summary ---
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
--- OUTSIDE RECORDS SUMMARY | 2025-09-21 06:09 | XMS_ITS | Clinical Summary ---
Author Organization Mandae tem Address [id number] [address] [place] [address] Care Team Providers Care Firearms Expert Name Role Phone Lisa Grady MD Primary Care Provider [phone] Allergies Active AllergyReactionsCriticalityNoted FhhdVawbeypdDwnhtnjuabAzzjQgw54/29/2025 PrednisoneOther (See Comments)12/09/2024 Light headed Medications * [...] DateDiagnosed DateLumbosacral spondylosis without myelopathy 4Post concussion viollqfv86/06/2022Intractable chronic migraine without aura and with status ierrnamicya63/06/2022ipolar 1 disorder, depressed, severe 09/27/2022Generalized anxiety disorder with panic ayuqrry1809/06/2022ost traumatic stress disorder (PTSD)09/06/2022 Encounters * This document contains information received from the source organization and may not represent a complete record from that organization. DateTypeDepartmentCare NolmVxkgoslcggx02/17/2025Telephone [facility] - Pharmacy Medication Management [address] [place] [address] Shaun Lyon, [facility] 08/24/20253609Pfzoco68/24/2025 10:28 AM EDT - 08/04/2025 11:59 PM EDTHospital Encounter [facility] [address] [place] [address] Diarrhea, unspecified type; Abdominal cramps; Gas bloat syndrome Discharge Disposition: Home08/03/20257494Eewjgv27/16/2025Results [facility] [address] [place] [address] Brit Lantigua, MONTESSORI PARAPROFESSIONAL-ROOFER VINYL [employer]ATING Hemoglobin A1c, Lipid wxwdnqu6707/27/20257344Tfzghy62/16/2025Orders Only [facility] [address] [place] [address] Brit Lantigua, MONTESSORI PARAPROFESSIONAL-ROOFER VINYL COATING Assessment of effects of psychotropic drug in patient at risk for metabolic syndrome (Primary Dx)07/22/20253994Qcwtcn92/08/3500Pynlkt34/19/2025Travelfrom Last 3 Months Immunizations ImmunizationAdministration DatesNext RmgZNL9201/29/2020(),01/27/2020(Deferred: - IMMUNE)Tdap01/29/2020(),01/27/2020()Xbdfcbcei07/20/2020(Deferred: - Immunity) Family History Medical HistoryRelationNameCommentsAnxiety disorderFatherBipolar disorderFather Pancreatic cancerFatherDepressionMaternal AuntHypertensionMaternal Grandmother HypertensionMotherBreast cancerPaternal GrandmotherDiabetesPaternal Grandmother DepressionPaternal UncleRelationNameStatusCommentsFatherDeceasedMaternal Aunt AliveMaternal GrandmotherMotherAlivePaternal GrandmotherPaternal UncleAlive Social History Tobacco UseTypesPacks/DayYears UsedDateSmoking Tobacco: SacbucCptsmwctfz6836033 - 2018Vaping/E-cigarettesSmokeless Tobacco: Never Tobacco Cessation:Counseling Given: Not Answered Alcohol UseStandard Drinks/WeekCommentsNot Currently0 (1 standard drink = 0.6 oz pure alcohol)PHQ-2AnswerDate RecordedTotal Jeyew8438/29/2025ChildcareAnswerDate NrfljhhmDfmcgjbaeSyfbzzc77/12/2019EmploymentAnswerDate RecordedEmploymentUnknown 04/22/2019Hunger ScreeningAnswerDate RecordedWithin the past 12 months we worried whether our food would run out before we got money to buy more.Never True03/26/2025Within the past 12 months the food we bought just didn't last and we didn't have money to get more.Never True03/26/2025Purpose - LifeAnswerDate RecordedPurpose and direction in vgqeUxumkzf20/11/2021EducationAnswerDate RecordedWhat is the highest level of school you have completed or the highest degree you have received?Some college, no ukqojg442CommentsNoSex and Gender InformationValueDate RecordedSex Assigned at BirthNot on fileLegal NicDwgbcj85/06/2015 11:39 AM EDTGender IdentityNot on fileSexual OrientationNot on file Last Filed Vital Signs Vital SignReadingTime TakenCommentsBlood Kejituvr383/71003/26/2025 11:45 PM EDT Kpnag001803/26/2025 11:45 PM QTMQdikovkczku28.8 ??C (98.3 ??F)03/26/2025 11:15 PM EDTRespiratory Ajva341803/26/2025 11:45 PM EDTOxygen Ijbmldmxro35%03/26/2025 11:45 PM EDTInhaled Oxygen Concentration--Ictmxt65.4 kg (175 lb)03/26/2025 11:15 PM SLRVpgivr002.6 cm (5' 6 )03/26/2025 11:15 PM EDTBody Mass Index28.25003/26/2025 11:15 PM EDT Plan of Treatment Health MaintenanceDue DateLast DoneCommentsDTaP,Tdap and Td Vaccines (6 - Tdap) , 09/15/1987, 03/07/1987, Additional history existsAdult BMI Follow Up Plan2004Influenza Cpkbnrv6107/12/2025Depression Screening dult BMI Nekpxegph12Tobacco Screening Pap Smear, 01/31/2023 Medical Devices Not on file Procedures Procedure NamePriorityDate/TimeAssociated DiagnosisCommentsCT ABDOMEN AND PELVIS W PMHSUhmqxxu81/24/2025 11:09 AM EDT Diarrhea, unspecified type Abdominal cramps Gas bloat syndrome LIPID CRWDGJSYfnctcg23/16/2025 10:37 AM EDT Assessment of effects of psychotropic drug in patient at risk for metabolic syndrome HEMOGLOBIN X0ZIkrdtgz42/16/2025 10:37 AM EDT Assessment of effects of psychotropic drug in patient at risk for metabolic syndrome HEMOGLOBIN M4JHprjrfu92/11/2025 12:01 PM EDT Assessment of effects of psychotropic drug in patient at risk for metabolic syndrome LIPID KLVGIGXHklfwqg49/11/2025 12:01 PM EDT Assessment of effects of psychotropic drug in patient at risk for metabolic syndrome CALPROTECTIN, DYrsiykc42/22/2025 6:23 AM EDT Diarrhea, unspecified Unspecified abdominal pain Other specified diseases of the digestive system C DIFFICILE BY IQFKjejrdt93/22/2025 6:23 AM EDT Diarrhea, unspecified Unspecified abdominal pain Other specified diseases of the digestive system HIV 1&2 AB/AG SCREEN (P24 AG)Brkeiaz4107/01/2025 11:48 AM EDT Diarrhea, unspecified Unspecified abdominal pain Other specified diseases of the digestive system ERYTHROCYTE SEDIMENTATION RATE (ESR)Bkeimbb5807/01/2025 11:48 AM EDT Diarrhea, unspecified Unspecified abdominal pain Other specified diseases of the digestive system C-REACTIVE TWMICTEKjpckci00/21/2025 11:48 AM EDT Diarrhea, unspecified Unspecified abdominal [...] 08/04/2025 11:59 AM Authorizing ProviderResult TypeResult StatusImad Asaad MDIMG CT ORDERABLESFinal Result * (ABNORMAL) Hemoglobin A1c (07/27/2025 10:37 AM EDT) Only the most recent of2 resultswithin the time period is included. ComponentValueRef RangeTest MethodAnalysis TimePerformed AtPathologist Signature HEMOGLOBIN A1C6.0(H)4.4 - 5.6 %07/27/2025 1:59 PM [facility] LABORATORYComment: ?ADA Guidelines ?Result ?HgbA1c ? Normal : ? less than 5.7 % ? Prediabetes : ?5.7 % ??to 6.4 % Diabetes : > 6.4 % ?Use with caution in patients with abnormal hemoglobin variants as ??the half-life of red blood cells and in vivo glycation rates are ??affected. EST. AVERAGE IPLMBLW931lu/dL07/27/2025 1:59 PM [facility] LABORATORYSpecimen (Source)Anatomical Location / LateralityCollection Method / VolumeCollection TimeReceived TimeBloodVenous blood / UnknownVenipuncture / Duqkrgl8007/27/2025 10:37 AM EDT07/27/2025 10:37 AM EDT Narrative Authorizing ProviderResult TypeResult StatusJaclyn Toby Lantigua MONTESSORI PARAPROFESSIONAL-CNPLAB BLOOD ORDERABLESFinal ResultPerforming OrganizationAddressCity/State/ZIP CodePhone Number [facility] [address] [place] [phone], * Lipid profile (07/27/2025 10:37 AM EDT) Only the most recent of2 resultswithin the time period is included. ComponentValueRef RangeTest MethodAnalysis TimePerformed AtPathologist Signature SEAVTACCDLJ943235 - 200 mg/dL07/27/2025 2:03 PM [facility] GAGDLMILDHEWVIAEZQLSHU46235 - 150 mg/dL07/27/2025 2:03 PM [facility] LABORATORYHDL FNGYYVLBGBY87>39 mg/dL07/27/2025 2:03 PM [facility] LABORATORYComment: HDL <40 mg/dL - High Risk HDL > or = 40mg/dL- Desirable HDL >60 mg/dL - Negative Risk LDL (CALC)103<130 mg/dL07/27/2025 2:03 PM [facility] Comment: LDL <100 mg/dL - Desirable LDL >160 mg/dL - High Risk CHOLESTEROL:HDL3.31.0 - 5.009/ 2:03 PM [facility] LABORATORYVERY LOW XTHYEHHYUVM796 - 30 mg/dL07/27/2025 2:03 PM [facility] LABORATORYSpecimen (Source)Anatomical Location / Laterality Collection Method / VolumeCollection TimeReceived TimeBloodVenous blood / UnknownVenipuncture / Gznhhgp3707/27/2025 10:37 AM EDT07/27/2025 10:37 AM EDT Narrative Authorizing ProviderResult TypeResult StatusJaclcristina Toby Lantigua MONTESSORI PARAPROFESSIONAL-CNPLAB BLOOD ORDERABLESFinal ResultPerforming OrganizationAddressCity/State/ZIP CodePhone Number [facility] [address] [place] [address], * Calprotectin, F (07/02/2025 6:23 AM EDT)ComponentValueRef RangeTest Method Analysis TimePerformed AtPathologist SignatureCALPROTECTIN, F<50.0<50.0 (Normal) mcg/g007/05/2025 8:06 PM [facility] LABORATORIESComment: Test Performed by: [facility] [address] [place] [address] Waterproof Bag Cutting Machine Operator: Disha Massey Ph.D.; CLIA# [id number] Specimen (Source)Anatomical Location / LateralityCollection Method / Volume Collection TimeReceived TimeStoolFeces / Degpzil4107/02/2025 6:23 AM EDT07/02/2025 7:25 AM EDT Narrative Authorizing ProviderResult TypeResult StatusImakasandra Ortega MDBODY FLUIDS AND STOOLS ORDERABLESFinal ResultPerforming OrganizationAddressCity/State/ZIP CodePhone Number [facility] [address] [place] [address], * C difficile by PCR (07/02/2025 6:23 AM EDT)ComponentValueRef RangeTest Method Analysis TimePerformed AtPathologist SignatureTOXIGENIC C DIFFNegativeNegative 07/02/2025 2:42 PM [facility] CHTQOTZQBV047 BYI4Jhichvoondy NegativePresumptive Chcnqmyx22/22/2025 2:42 PM [facility] LABORATORYComment:Assay methodology is nucleic acid amplification by real-time PCR for detection of C. difficile toxin gene sequences performed on [employer] GeneX[employer]st Instrument System.Specimen (Source)Anatomical Location / Laterality Collection Method / VolumeCollection TimeReceived TimeStoolFeces / Unknown 07/02/2025 6:23 AM EDT07/02/2025 7:25 AM EDT Narrative Authorizing ProviderResult TypeResult StatusImad Jordan DEL CID FLUIDS AND STOOLS ORDERABLESFinal ResultPerforming OrganizationAddressCity/State/ZIP CodePhone Number [facility] [address] [place] [address], * HIV 1&2 AB/AG Screen (P24 AG) (07/01/2025 11:48 AM EDT)ComponentValueRef Range Test MethodAnalysis TimePerformed AtPathologist SignatureHIV 1 AND 2 AB/AG TAKALNVwr-WzzyhsxjVvf-Qtqvecnw28/21/2025 6:37 PM [facility] LABORATORYSpecimen (Source)Anatomical Location / LateralityCollection Method / VolumeCollection TimeReceived TimeBloodVenous blood / UnknownVenipuncture / Mbyvgnc1007/01/2025 11:48 AM EDT07/01/2025 11:49 AM EDT Narrative [facility] - 07/01/2025 6:37 PM EDT This [...] BLOOD ORDERABLES Final ResultPerforming OrganizationAddressCity/State/ZIP CodePhone Number [facility] [address] [place] [address], * Erythrocyte Sedimentation Rate (ESR) (07/01/2025 11:48 AM EDT)ComponentValue Ref RangeTest MethodAnalysis TimePerformed AtPathologist SignatureESR, Erythrocyte Sedimentation Ikbo127 - 20 mm/h007/01/2025 6:12 PM [facility] LABORATORYSpecimen (Source)Anatomical Location / Laterality Collection Method / VolumeCollection TimeReceived TimeBloodVenous blood / UnknownVenipuncture / Mivualg0807/01/2025 11:48 AM EDT07/01/2025 11:49 AM EDT Narrative Authorizing ProviderResult TypeResult StatusImad Asaad MDLAB BLOOD ORDERABLES Final ResultPerforming OrganizationAddressCity/State/ZIP CodePhone Number [facility] [address] [place] [address], * C-reactive protein (07/01/2025 11:48 AM EDT)ComponentValueRef RangeTest Method Analysis TimePerformed AtPathologist SignatureC REACTIVE PROTEIN0.3<=0.7 mg/dL 07/01/2025 5:55 PM [facility] LABORATORYSpecimen (Source) Anatomical Location / LateralityCollection Method / VolumeCollection Time Received TimeBloodVenous blood / UnknownVenipuncture / Iikoxfy1107/01/2025 11:48 AM EDT07/01/2025 11:49 AM EDT Narrative Authorizing ProviderResult TypeResult StatusImad Asaad MDLAB BLOOD ORDERABLES Final ResultPerforming OrganizationAddressCity/State/ZIP CodePhone Number [facility] [address] [place] [address], from Last 3 Months Insurance Advance Directives * Full Code (Latest Code Status on File) Date ActivatedDate InactivatedComments01/27/2020 1:16 PM01/29/2020 2:04 PM * Full Code Date ActivatedDate InactivatedComments07/10/2018 2:51 PM07/12/2018 9:44 PM Care Teams Team MemberRelationshipSpecialtyStart DateEnd Date Lisa Grady MD [address] [place] [address] PCP - GeneralFamily Medicine12/31/24
--- OUTSIDE RECORDS SUMMARY | 2025-09-21 06:09 | XMS_ITS | Encounter Summary ---
Author Organization [facility] Address [address] [place] [address] Care Team Providers Care Hand Assembler Name Role Phone Lisa Grady MD Primary Care Provider Mirella Parekh MAINTENANCE WORKER HOUSE TRAILER Unavailable Encounter Details DateTypeDepartmentCare Team (Latest Contact Info)Orfakscoohs06/07/2025linisync Result Encounter [facility] Unsolicited Walter Cox, DO [address] [place] [address] Social History Tobacco UseTypesPacks/DayYears UsedDateSmoking Tobacco: NeverSmokeless [...] the phone with family, friends, or neighbors?Patient leycvqfc42/21/2024How often do you get together with friends or relatives?Patient bhilbnjq88/21/2024 How often do you attend orthodoxy or worship services?Never4Do you belong to any clubs or organizations such as orthodoxy groups, unions, fraternal or athletic groups, or school groups?No07/01/2024How often do you attend meetings of the clubs or organizations you belong to?Never07/01/2024re you , , , , never , or living with a partner?Never iymheww0007/01/2024UDIT-CAnswerDate RecordedQ1: How often do you have a drink containing alcohol?Patient /21/2024Q2: How many drinks containing alcohol do you have on a typical day when you are drinking?Patient declined 07/01/2024Q3: How often do you have six or more drinks on one occasion?Less than etitngy9407/01/2024Overall Financial Resource Strain (CARDIA)AnswerDate Recorded How hard is it for you to pay for the very basics like food, housing, medical care, and heating?Not very hard07/01/2024HQ-2AnswerDate RecordedPatient Health Questionnaire-2 Eagfx633Finuint[facility] [place] [facility] - Occupational Stress QuestionnaireAnswerDate [...] were you homeless or living in a retirement (including now)?No07/01/2024CommentsNoSex and Gender Information ValueDate RecordedSex Assigned at BirthNot on fileLegal SgsXjaxci53/15/2023 7:29 PM EDTGender OasrvfciZvmqum48/03/2023 1:21 PM EDTSexual OrientationStraight 08/13/2023 1:21 PM EDTdocumented as of this encounter Plan of Treatment Not on file documented as of this encounter Goals GoalPatient Goal TypeAssociated ProblemsRecent ProgressPatient-Stated?Author Help patient manage antidepressant medication Care PlanPatient on antidepressant monitoring Lisa Patricia MD Baseline PHQ-9 Care PlanBaseline PHQ-9Lisa Edwards, MDdocumented as of this encounter Procedures Procedure NamePriorityDate/TimeAssociated DiagnosisCommentsSRMCOH PROTHROMBIN TIME INR W/O FESTZftvfka98/07/2025 12:55 PM EST HMHP LIVER GMLNZVfyckkx13/07/2025 12:55 PM EST CCF UDXHFsrxszo19/07/2025 12:55 PM EST ALL TYPE AND TERDEGHaxtzuj20/07/2025 12:55 PM EST ALL CBC WITH AUTO UDRWJyflkrz96/07/2025 12:55 PM EST ALL BASIC METABOLIC OBPSNKkafojq43/07/2025 12:55 PM EST documented in this encounter Results * (ABNORMAL) ALL BASIC METABOLIC PANEL (09/17/2025 12:55 PM EST)ComponentValue Ref RangeTest MethodAnalysis TimePerformed AtPathologist SmuepgtgpRIXOFR071779 - 145 mmol/LTBHPOTASSIUM3.63.5 - 5.1 mmol/NQYOOUXUFMVH219(H)98 - 107 mmol/LTBH CARBON YBLMMSZ61.321.0 - 32.0 mmol/LTBHANION GAP14.2CPINWQTLSO38778 - 106 mg/dLTBHBLOOD UREA ZWBGHFKT19.07.0 - 18.0 mg/dLTBHCREATININE1.03(H)0.55 - 1.02 mg/dLTBHTBH EGFR-AF TRINIDADIAN>60>=60 mL/min/1.73m 2TBHTBH EGFR-NON AF TRINIDADIAN 60>=60 mL/min/1.73m 2TBHBUN CREATININE RATIO14.9WIXUMSOXKU1.18.5 - 10.1 mg/dL TBHSpecimen (Source)Anatomical Location / LateralityCollection Method / Volume Collection TimeReceived Time09/17/2025 12:55 PM EST09/17/2025 12:58 PM EST Narrative [facility] - 09/17/2025 1:54 PM EST Authorizing ProviderResult TypeResult StatusCorey Kenny DOCLINISYNCFinal Result Performing OrganizationAddressCity/State/ZIP CodePhone Number [facility] * [facility] LIVER PANEL (09/17/2025 12:55 PM EST)ComponentValueRef RangeTest Method Analysis TimePerformed AtPathologist SignatureBILIRUBIN TOTAL0.40.2 - 1.0 mg/dLTBHBILIRUBIN DIRECT0.10.0 - 0.2 mg/dLTBHASPARTATE AMINO ISGNUVIUBIF8330 - 37 U/LTBHALANINE XQADTCSAMFFLESFV0213 - 59 U/LTBHALKALINE YDVBFYXBIQZ91019 - 116 U/LTBHTOTAL PROTEIN7.06.4 - 8.2 g/dLTBHALBUMIN LEVEL3.83.4 - 5.0 g/dLTBH GLOBULIN3.2g/dLTBHALBUMIN GLOBULIN RATIO1.2TBHSpecimen (Source)Anatomical Location / LateralityCollection Method / VolumeCollection TimeReceived Time 09/17/2025 12:55 PM EST09/17/2025 12:58 PM EST Narrative [facility] - 09/17/2025 1:54 PM EST Authorizing ProviderResult TypeResult StatusCorey Kenny DOCLINISYNCFinal Result Performing OrganizationAddressCity/State/ZIP CodePhone Number [facility] * ALL TYPE AND SCREEN (09/17/2025 12:55 PM EST)ComponentValueRef RangeTest MethodAnalysis TimePerformed AtPathologist SignatureBLOOD TYPEB PositiveTBH ANTIBODY SCREENNEGATIVETBHSpecimen (Source)Anatomical Location / Laterality Collection Method / VolumeCollection TimeReceived Time09/17/2025 12:55 PM EST 09/17/2025 12:58 PM EST Narrative CLINISYMN - 09/17/2025 1:45 PM EST [facility] , ?? Authorizing ProviderResult TypeResult StatusCorey Kenny DOCLINISYNCFinal Result Performing OrganizationAddressCity/State/ZIP CodePhone Number [facility] * [facility] APTT (09/17/2025 12:55 PM EST)ComponentValueRef RangeTest MethodAnalysis TimePerformed AtPathologist SignaturePARTIAL THROMBOPLASTIN TIME28.522.3 - 36.2 secTBHSpecimen (Source)Anatomical Location / LateralityCollection Method / VolumeCollection TimeReceived Time09/17/2025 12:55 PM EST09/17/2025 12:58 PM EST Narrative [facility] - 09/17/2025 1:25 PM EST Authorizing ProviderResult TypeResult StatusCorey Kenny DOCLINISYNCFinal Result Performing OrganizationAddressCity/State/ZIP CodePhone Number [facility] * SRMCOH PROTHROMBIN TIME INR W/O COUM (09/17/2025 12:55 PM EST)ComponentValue Ref RangeTest MethodAnalysis TimePerformed AtPathologist SignaturePROTHROMBIN TIME10.99.0 - 11.6 secTBHTBH INR1.03TBHComment: DESIRED INR: 2.0-3.0 CONDITIONS NOT LISTED BELOW 2.5-3.5 FOR PROSTHETIC HEART VALVE REPLACEMENT 2.5-3.5 RECURRENT THROMBOSIS Specimen (Source)Anatomical Location / LateralityCollection Method / Volume Collection TimeReceived Time09/17/2025 12:55 PM EST09/17/2025 12:58 PM EST Narrative [facility] - 09/17/2025 1:25 PM EST Authorizing ProviderResult TypeResult StatusCorey Kenny DOCLINISYNCFinal Result Performing OrganizationAddressCity/State/ZIP CodePhone Number [facility] * ALL CBC WITH AUTO DIFF (09/17/2025 12:55 PM EST)ComponentValueRef RangeTest MethodAnalysis TimePerformed AtPathologist SignatureTBH WBC5.64.0 - 11.0 10 3/uLTBHTBH RBC4.294.20 - 5.40 10 6/uLTBHTBH HGB12.212.0 - 16.0 g/dLTBHTBH HCT 36.336.0 - 48.0 %TBHTBH MCV84.681.0 - 99.0 fLTBHTBH MCH28.426.7 - 34.0 pgTBH TBH MCHC33.629.9 - 35.2 g/dLTBHTBH RDW14.511.0 - 15.0 %TBHTBH MTR278391 - 450 10 3/uLTBHTBH MPV10.19.5 - 13.5 fLTBHNEUTROPHILS PERCENT AUTO44.943.0 - 75.0 % TBHLYMPHOCYTES PERCENT AUTO41.720.5 - 60.0 %TBHMONOCYTES PERCENT AUTO6.71.7 - 12.0 %TBHTBH EO %5.80.9 - 7.0 %TBHBASOPHILS PERCENT AUTO0.70.2 - 2.0 %TBH IMMATURE GRANULOCYTES PCT AUTO0.20.0 - 0.5 %TBHNEUTROPHILS ABSOLUTE AUTO2.51.4 - 6.5 10 3/uLTBHLYMPHOCYTES ABSOLUTE AUTO2.31.2 - 3.8 10 3/uLTBHMONOCYTES ABSOLUTE AUTO0.40.3 - 0.8 10 3/uLTBHTBH EO #0.30.0 - 0.7 10 3/uLTBHBASOPHILS ABSOLUTE AUTO0.00.0 - 0.1 10 3/uLTBHIMMATURE GRANULOCYTES ABS AUTO0.010.00 - 0.03 10 3/uLTBHSpecimen (Source)Anatomical Location / LateralityCollection Method / VolumeCollection TimeReceived Time09/17/2025 12:55 PM EST09/17/2025 12:58 PM EST Narrative [facility] - 09/17/2025 1:21 PM EST Authorizing ProviderResult TypeResult StatusCorey Kenny DOCLINISYNCFinal Result Performing OrganizationAddressCity/State/ZIP CodePhone Number [facility] documented in this encounter Visit Diagnoses Not on filedocumented in this encounter Additional Health Concerns Active ProblemsNoted DateDiagnosed DatePatient on antidepressant monitoring plan 4Baseline PHQ-904AssessmentNoted TimePHQ-9 Depression Total Score: 17004/28/2025 11:21 AM EDTdocumented as of this encounter Care Teams Team MemberRelationshipSpecialtyStart DateEnd Date Lisa Grady MD [address] [place] [address] [facility] - [facility] Mirella Parekh NP PCP - [facility]11/11/24documented as of this encounter
--- OUTSIDE RECORDS SUMMARY | 2025-09-21 06:09 | XMS_ITS | Clinical Summary ---
Author Organization [facility] Healthcare Address [address] [place] [address] Care Team Providers Care Senior Buyer Name Role Phone Lisa Grady MD Primary Care Provider [phone] Mirella Parekh MARKETING [employer] REP Unavailable Allergies Active AllergyReactionsCriticalityNoted DateCommentsAmlodipineItching,RashLow 12/09/20240694TflrhchjpoMefxe32/29/2025 Light headed Medications MedicationSigDispense QuantityRefillsLast FilledStart DateEnd [...] tablet 08/30/2024ctive QUEtiapine (SEROquel) 100 MG tablet 5Active ALPRAZolam (Xanax) 0.5 MG tablet Indications:AnxietyTake 1 tablet (0.5 mg) by mouth as needed at bedtime for anxiety 30 tablet Discontinued QUEtiapine (SEROquel) 50 MG tablet Take 100 mg by mouth at jkorbqm27Discontinued Active Problems ProblemNoted DateDiagnosed DateAcne /13/9212Rulxfzffjge75/13/2024 Enxkjol7103/23/2024ipolar 1 lvnxicps22/13/9155Bgoexvihch77/13/2024 Rmbswfzfdzepabwdg78/13/2024Intractable chronic migraine without aura and with status gamzfnkrfxr82/06/2022 Encounters DateTypeDepartmentCare VpkmJvhmekbspsd92/11/2025bstract [place] [address] Walter Cox DO 09/17/2025linisync Result Encounter NOMS External Department Unsolicited Walter Cox DO 08/24/2025 1:00 PM EDTConsult ANSELMO Joel [place] [address] Walter Cox DO Pre-op examination; Menorrhagia with irregular cycle; Pelvic pain in female; Dysmenorrhea; Dyspareunia, qnqbqq2108/24/2025amboo flowsheet NOMValerie [address] [place] [address] Walter Cox DO 08/23/20256534Lozbib83/17/2025 1:30 PM EDTConsult ANSELMO RENE [address] [place] [address] Walter Cox DO Pelvic pain; Abnormal uterine bleeding (AUB)07/28/2025Telephone [facility] [address] [facility] [place] [address] Jesenia Nunez LPN 07/28/2025amboo flowsheet [facility] [address] [facility] [address] Walter Cox, DO 07/27/20258108Rzqdsn90/04/2025 11:00 AM EDTOffice Visit [facility] [address] [facility] [place] [address] Renetta Kay, DEVIN Postoperative nidwhdpbeqq71/04/2025amboo flowsheet [facility] [address] [facility] [address] Renetta Kay, DEVIN 07/02/2025bstract [facility] [address] [facility] [address] Walter Cox, DO 07/02/2025bstract [facility] [address] [facility] [place] [address] Walter Cox, DO 07/02/2025bstract [facility] [address] [facility] [address] Walter Cox, DO 5Clinisync Result Encounter NOMS External Department Unsolicited Walter Cox, DO 06/23/2025Telephone [facility] Medicine [address] [place] [address] Lisa Grady MD 06/21/2025bstract [facility] [address] [facility] [address] Walter Cox, DO from Last 3 Months Family History Medical [...] the phone with family, friends, or neighbors?Patient afueqdns88/21/2024How often do you get together with friends or relatives?Patient rmvmfuag30/21/2024 How often do you attend congregational or jewish services?Never07/01/2024o you belong to any clubs or organizations such as congregational groups, unions, fraternal or athletic groups, or school groups?No07/01/2024How often do you attend meetings of the clubs or organizations you belong to?Never07/01/2024re you , , , , never , or living with a partner?Never xyuamya0807/01/2024UDIT-CAnswerDate RecordedQ1: How often do you have a drink containing alcohol?Patient czqglzmu83/21/2024Q2: How many drinks containing alcohol do you have on a typical day when you are drinking?Patient declined 07/01/2024Q3: How often do you have six or more drinks on one occasion?Less than uuptkgl2007/01/2024Overall Financial Resource Strain (CARDIA)AnswerDate Recorded How hard is it for you to pay for the very basics like food, housing, medical care, and heating?Not very hard07/01/2024HQ-2AnswerDate RecordedPatient Health Questionnaire-2 Epiey455Finhe[facility] [place] of Occupational Health - Occupational Stress QuestionnaireAnswerDate [...] were you homeless or living in a skilled nursing (including now)?No07/01/2024CommentsNoSex and Gender Information ValueDate RecordedSex Assigned at BirthNot on fileLegal HgpGoiuwi65/15/2023 7:29 PM EDTGender HsqplicsCfrwqz10/03/2023 1:21 PM EDTSexual OrientationStraight 08/13/2023 1:21 PM EDT Last Filed Vital Signs Vital SignReadingTime TakenCommentsBlood Ftkyhpmj161/6810 12:55 PM EDT Leqaa966704/28/2025 11:15 AM EDTTemperature--Respiratory Eryl097605/07/2024 4:40 PM EDTOxygen Htagptjrei34%04/28/2025 11:15 AM EDTInhaled Oxygen Concentration-- Clmtne36.8 kg (176 lb)08/24/2025 12:55 PM EBQShherw519.4 cm (5' 5.5 )04/28/2025 11:15 AM EDTBody Mass Index28.8404/28/2025 11:15 AM EDT Plan of Treatment Health MaintenanceDue DateLast DoneCommentsPneumococcal Vaccine: Pediatrics (0 to 5 Years) and At-Risk Patients (6 to 64 Years) (1 of 2 - PCV)2005COVID- 19 Vaccine (1 - season)2025Influenza Vaccine (#1)2025 HPV/Vqhzbj96/, 05/24/2021ervical Cancer Dhgeyzjho54/24/2028Pap Smear, 01/31/2023 Goals GoalPatient Goal TypeAssociated ProblemsRecent ProgressPatient-Stated?Author Help patient manage antidepressant medication Care PlanPatient on antidepressant monitoring Lisa Patricia MD Baseline PHQ-9 Care PlanBaseline PHQ-9Lisa Edwards MD Procedures Procedure NamePriorityDate/TimeAssociated DiagnosisCommentsALL BASIC METABOLIC VSJFYZnzrssr64/07/2025 12:55 PM EST HMHP LIVER OZICSZotxqix77/07/2025 12:55 PM EST ALL TYPE AND IXKRDDHtyidvy35/07/2025 12:55 PM EST CCF OKMXZsddedx44/07/2025 12:55 PM EST SRMCOH PROTHROMBIN TIME INR W/O EAGVCvalqtv72/07/2025 12:55 PM EST ALL CBC WITH AUTO WCOYKfzqfws56/07/2025 12:55 PM EST TBH PREG QUANT KQVAkaxwsu71/22/2025 8:25 AM EDT ALL CBC WITH AUTO YCUQDumprpx87/22/2025 8:25 AM EDT PAP BSEZNTcrvizg39/24/2025 12:00 AM EDTTHINPREP PAP AND HPV MRNA E6/E7 REFLEX HPV 16,18/14Omherao12/23/2023 from Last 3 Months or Most Recently Relevant to Health Maintenance Results * [facility] W/O COUM (09/17/2025 12:55 PM EST)ComponentValue Ref RangeTest MethodAnalysis TimePerformed AtPathologist SignaturePROTHROMBIN TIME10.99.0 - 11.6 secTMASON GENERAL H[facility]PITAL INR1.03TBHComment: DESIRED INR: 2.0-3.0 CONDITIONS NOT LISTED BELOW 2.5-3.5 FOR PROSTHETIC HEART VALVE REPLACEMENT 2.5-3.5 RECURRENT THROMBOSIS Specimen (Source)Anatomical Location / LateralityCollection Method / Volume Collection TimeReceived Time09/17/2025 12:55 PM EST09/17/2025 12:58 PM EST Narrative CLINISYNC - 09/17/2025 1:25 PM EST Authorizing ProviderResult TypeResult StatusCorey Kenny DOCLINISYNCFinal Result Performing OrganizationAddressCity/State/ZIP CodePhone Number [facility] * HP LIVER PANEL (09/17/2025 12:55 PM EST)ComponentValueRef RangeTest Method Analysis TimePerformed AtPathologist SignatureBILIRUBIN TOTAL0.40.2 - 1.0 mg/dLTBHBILIRUBIN DIRECT0.10.0 - 0.2 mg/dLTBHASPARTATE AMINO WDTCEYYRHYB1497 - 37 U/LTBHALANINE VJRXPBLJQMLZJVPG2450 - 59 U/LTBHALKALINE IPHOTFFEAMA93549 - 116 U/LTBHTOTAL PROTEIN7.06.4 - 8.2 g/dLTBHALBUMIN LEVEL3.83.4 - 5.0 g/dLTBH GLOBULIN3.2g/dLTBHALBUMIN GLOBULIN RATIO1.2TBHSpecimen (Source)Anatomical Location / LateralityCollection Method / VolumeCollection TimeReceived Time 09/17/2025 12:55 PM EST09/17/2025 12:58 PM EST Narrative [facility] - 09/17/2025 1:54 PM EST Authorizing ProviderResult TypeResult StatusCorey Kenny DOCLINISYNCFinal Result Performing OrganizationAddressCity/State/ZIP CodePhone Number [facility] * CCF APTT (09/17/2025 12:55 PM EST)ComponentValueRef RangeTest MethodAnalysis TimePerformed AtPathologist SignaturePARTIAL THROMBOPLASTIN TIME28.522.3 - 36.2 secTBHSpecimen (Source)Anatomical Location / LateralityCollection Method / VolumeCollection TimeReceived Time09/17/2025 12:55 PM EST09/17/2025 12:58 PM EST Narrative CLINISYNC - 09/17/2025 1:25 PM EST Authorizing ProviderResult TypeResult StatusCorey Kenny DOCLINISYNCFinal Result Performing OrganizationAddressCity/State/ZIP CodePhone Number [facility] * ALL TYPE AND SCREEN (09/17/2025 12:55 PM EST)ComponentValueRef RangeTest MethodAnalysis TimePerformed AtPathologist SignatureBLOOD TYPEB PositiveTBH ANTIBODY SCREENNEGATIVETBHSpecimen (Source)Anatomical Location / Laterality Collection Method / VolumeCollection TimeReceived Time09/17/2025 12:55 PM EST 09/17/2025 12:58 PM EST Narrative [facility] - 09/17/2025 1:45 PM EST [facility] , ?? Authorizing ProviderResult TypeResult StatusCorey Kenny DOCLINISYNCFinal Result Performing OrganizationAddressCity/State/ZIP CodePhone Number [facility] * ALL CBC WITH AUTO DIFF (09/17/2025 12:55 PM EST) Only the most recent of2 resultswithin the time period is included. ComponentValueRef RangeTest MethodAnalysis TimePerformed AtPathologist Signature TBH WBC5.64.0 - 11.0 10 3/uLTBHTBH RBC4.294.20 - 5.40 10 6/uLTBHTBH HGB12.212.0 - 16.0 g/dLTBHTBH HCT36.336.0 - 48.0 %TBHTBH MCV84.681.0 - 99.0 fLTBHTBH MCH28.4 26.7 - 34.0 pgTBHTBH MCHC33.629.9 - 35.2 g/dLTBHTBH RDW14.511.0 - 15.0 %TBHTBH SKP541790 - 450 10 3/uLTBHTBH MPV10.19.5 - 13.5 fLTBHNEUTROPHILS PERCENT AUTO 44.943.0 - 75.0 %TBHLYMPHOCYTES PERCENT AUTO41.720.5 - 60.0 %TBHMONOCYTES PERCENT AUTO6.71.7 - 12.0 %TBHTBH EO %5.80.9 - 7.0 %TBHBASOPHILS PERCENT AUTO0.7 0.2 - 2.0 %TBHIMMATURE GRANULOCYTES PCT AUTO0.20.0 - 0.5 %TBHNEUTROPHILS ABSOLUTE AUTO2.51.4 - 6.5 10 3/uLTBHLYMPHOCYTES ABSOLUTE AUTO2.31.2 - 3.8 10 3/uLTBHMONOCYTES ABSOLUTE AUTO0.40.3 - 0.8 10 3/uLTBHTBH EO #0.30.0 - 0.7 10 3/uLTBHBASOPHILS ABSOLUTE AUTO0.00.0 - 0.1 10 3/uLTBHIMMATURE GRANULOCYTES ABS AUTO0.010.00 - 0.03 10 3/uLTBHSpecimen (Source)Anatomical Location / Laterality Collection Method / VolumeCollection TimeReceived Time09/17/2025 12:55 PM EST 09/17/2025 12:58 PM EST Narrative CLINISYNC - 09/17/2025 1:21 PM EST Authorizing ProviderResult TypeResult StatusCorey Kenny DOCLINISYNCFinal Result Performing OrganizationAddressCity/State/ZIP CodePhone Number [facility] * (ABNORMAL) ALL BASIC METABOLIC PANEL (09/17/2025 12:55 PM EST)ComponentValue Ref RangeTest MethodAnalysis TimePerformed AtPathologist UqxcilovqJTZZRR259735 - 145 mmol/LTBHPOTASSIUM3.63.5 - 5.1 mmol/GVVUNVJZEKHF161(H)98 - 107 mmol/LTBH CARBON LNAMURK45.321.0 - 32.0 mmol/LTBHANION GAP14.3GDYXHFMYTQ26510 - 106 mg/dLTBHBLOOD UREA NXJFCCZQ54.07.0 - 18.0 mg/dLTBHCREATININE1.03(H)0.55 - 1.02 mg/dLTBHTBH EGFR-AF JORDANIAN>60>=60 mL/min/1.73m 2TBHTBH EGFR-NON AF JORDANIAN 60>=60 mL/min/1.73m 2TBHBUN CREATININE RATIO14.8QCXSYAZQNW3.18.5 - 10.1 mg/dL TBHSpecimen (Source)Anatomical Location / LateralityCollection Method / Volume Collection TimeReceived Time09/17/2025 12:55 PM EST09/17/2025 12:58 PM EST Narrative CARLOSNC - 09/17/2025 1:54 PM EST Authorizing ProviderResult TypeResult StatusCorey Kenny DOCLINISYNCFinal Result Performing OrganizationAddressty/State/ZIP CodePhone Number [facility] * TBH PREG QUANT HCG (07/02/2025 8:25 AM EDT)ComponentValueRef RangeTest Method Analysis TimePerformed AtPathologist SignatureHCG QUANTITATIVE<1mIU/mLTBH Comment: 5-50 ? 0.2-1 WEEK 50-500 ? 1-2 WEEKS 100-5,000 ?2-3 WEEKS 500-10,000 ? 3-4 WEEKS 1,000-50,000 ?? 4-5 WEEKS 10,000-100,000 5-6 WEEKS 15,000-200,000 6-8 WEEKS 10,000-100,000 2-3 MONTHS Specimen (Source)Anatomical Location / LateralityCollection Method / Volume Collection TimeReceived Time07/02/2025 8:25 AM EDT07/02/2025 9:53 AM EDT Narrative CARLOSPAOLA - 07/02/2025 10:11 AM EDT Authorizing ProviderResult TypeResult StatusCorey Kenny DOCLINISYNCFinal Result Performing OrganizationAddressty/State/ZIP CodePhone Number [facility] * Pap Smear (06/03/2025 12:00 AM EDT)Specimen (Source)Anatomical Location / LateralityCollection Method / VolumeCollection TimeReceived TimeSwabCervical swab / Unknown Narrative Authorizing ProviderResult TypeResult StatusCorey Kenny DOLAB CYTOLOGY ORDERABLESFinal ResultPerforming OrganizationAddressty/State/ZIP CodePhone Number EXTERNAL [facility] * THINPREP PAP AND HPV MRNA E6/E7 REFLEX HPV 16,18/45 (01/31/2023)ComponentValue Ref RangeTest MethodAnalysis TimePerformed AtPathologist SignatureCLINICAL INFORMATION:None givenNOMS LEGACY EXTERNAL LABLMP:NONE GIVENNOMS LEGACY EXTERNAL LABPREV. PAP:NONE GIVENNOMS LEGACY EXTERNAL LABPREV. BX:NONE GIVEN NOMS LEGACY EXTERNAL LABSOURCE:None givenNOMS LEGACY EXTERNAL LABSTATEMENT OF ADEQUACY:SEE COMMENTNOKY LEGACY EXTERNAL LABComment: Satisfactory for evaluation. Endocervical/transformation zone component present. INTERPRETATION/RESULT:Negative for intraepithelial lesion or malignancy.[facility] LEGACY EXTERNAL LABCYTOTECHNOLOGIST:SEE COMMENTNOMS LEGACY EXTERNAL LABComment: RLP, CT(ASCP) CT screening location: [facility] [place], [address] [place] [address], [place] [address]. COMMENTSEE COMMENTNOMS LEGACY EXTERNAL LABComment: EXPLANATORY NOTE: The Pap [...] E6/E7Not DetectedNot DetectedNOMS LEGACY EXTERNAL LABComment: Methodology: Mix Technician-Mediated Amplification This assay detects E6/E7 viral messenger RNA (mRNA) from 14 high-risk HPV types (16,18,31,33,35,39,45,51,52,56,58,59,66,68). Cervical sources are required for HPV testing. If a vaginal source from a patient who has had a total hysterectomy with removal of cervix was submitted, please contact the testing laboratory for alternative testing options. For additional information, please refer to http://education.[employer]/faq/JRF311h4 (This link if provided for information/ educational purposes only.) Specimen (Source)Anatomical Location / LateralityCollection Method / Volume Collection TimeReceived Time01/31/2023 Narrative Authorizing ProviderResult TypeResult StatusValered Meier CNCLEVEL[facility]ITALW LABSFinal ResultPerforming OrganizationAddressCity/State/ZIP CodePhone Number [facility] from Last 3 Months or Most Recently Relevant to Health Maintenance Additional Health Concerns Active ProblemsNoted DateDiagnosed DatePatient on antidepressant monitoring plan 4Baseline PHQ-908/ Insurance Care Teams Team MemberRelationshipSpecialtyStart DateEnd Lisa Grady MD [address] [place], [place] [id number] [facility] - [facility] Mirella Parekh NP PCP - [facility]11/11/24
--- OUTSIDE RECORDS SUMMARY | 2025-09-21 06:09 | XMS_ITS | Clinical Summary ---
Author Organization [facility] Address [address] [place] [address], [address] [place] [address] Care Team Providers Care Derrick Worker Well Service Name Role Phone Unavailable Primary Care Provider Unavailabl e Social History Tobacco UseTypesPacks/DayYears UsedDateSmoking Tobacco: Never Assessed CommentsUnknownSex and Gender InformationValueDate RecordedSex Assigned at Not on fileLegal WvxUjiokk27/10/2013 11:02 AM ESTGender IdentityNot on file Sexual OrientationNot on file Plan of Treatment Not on file
[2025-09-21 06:17] LABS: Hematocrit 36.9 % (36.0-48.0); Hemoglobin 12.0 g/dL (12.0-16.0); Immature Granulocytes Abs Auto 0.01 10^3/uL (0.00-0.03); Immature Granulocytes Pct Auto 0.1 % (0.0-0.5); Lymphocytes Absolute Auto 3.2 10^3/uL (1.2-3.8); Mean Corpuscular HGB Conc 32.5 g/dL (29.9-35.2); Mean Corpuscular Hemoglobin 28.0 pg (26.7-34.0); Mean Corpuscular Volume 86.0 fL (81.0-99.0); Platelet Count 291 10^3/uL (150-450); Red Blood Count 4.29 10^6/uL (4.20-5.40); White Blood Count 7.2 10^3/uL (4.0-11.0)
[2025-09-21] MEDS: CEFAZOLIN SODIUM 1 GM/50 ML D5W PREMIX IV (07:39)
--- NOTE | 2025-09-21 10:26 | PM.ONB ---
Brief Operative Note Date of procedure: 09/21/25 Pre-op diagnosis general: dysmenorrhea, dyspareunia, pelvic pain, aub Post-op diagnosis: same as pre-op Procedure: NAME OF PROCEDURE: [ ]Total abdominal hysterectomy, with cystoscopy. PROCEDURE: Patient was taken back to the Operating Room where she was given general anesthesia without difficulty. She was then prepped and draped in the normal sterile fashion. A Pfannenstiel skin incision was then made 2 cm above the symphysis and pubis and carried down to underlying rectus fascia using a Bovie. The fascia was incised in the midline and extended bilaterally using Dallas scissors. Two Adry clamps were placed on the superior aspect of the fascia and dissected off the underlying rectus muscle. The same was performed on the inferior aspect as well. The muscle was then in the midline. The peritoneum was identified and entered bluntly. Peritoneum was then extended superiorly and inferiorly with good visualization of the bladder. An O'Viysnfvb-O-Osebhj retractor was placed into the patient's abdomen. The bowel was packed away with moist laparotomy sponges and the bladder blade was inserted. A Leahey tenaculum was placed on the patient's uterus and used for retraction. LigaSure apparatus was then used to come across the uteroovarian ligament on the patient's right side which was then cauterized and transected. This was carried down serially through the broad ligament and across the round ligament. The bladder flap was then created using the Metzenbaum scissors, and the bladder was dissected off the patient's lower uterine segment. A curved Prabha was placed across the uterine artery on the right side which was clamped, transected, and suture ligated using #0 Monocryl. This was performed on the contralateral side as well. The bladder was further dissected and a Zeppelin clamp was then placed across the uterosacral and cardinal ligaments. This was transected and suture ligated using #0 Monocryl. This was performed on the contralateral side as well. The uterus was then amputated using Michael scissors. The patient's cuff was closed using #0 PDS in a running locked fashion and this was transfixed to the ipsilateral uterosacral and cardinal ligaments. Excellent hemostasis was assured. The patient's abdomen was copiously irrigated using warm saline. Cystoscopy was performed. Bladder was intact. Efflux was noted from both ostia. Cystoscope was removed.After excellent hemostasis was assured, all instruments were removed from the patient's abdomen. The patient's peritoneum was closed using 3-0 Vicryl in a running fashion. The patient's fascia was closed using #0 Vicryl in a running fashion. The patient's skin was closed using 4-0 vicryl on a chele needle. The patient tolerated the procedure well. Sponge, lap, and needle counts were correct times two. Patient taken to the Recovery Room in stable condition Anesthesia: MICAH Surgeon: Walter Cox Radio Communications Mechanician: Meka Haddad Estimated blood loss (mL): 100 Pathology: other (uterus and cervix) Condition: stable Disposition: PACU Urinary Catheter Management Urinary Catheter Management Urethral: Cath placed during this visit: no
--- NOTE | 2025-09-21 11:10 | PC.NURSE ---
1050 tap block performed
--- NOTE | 2025-09-21 11:23 | PC.NURSE ---
Patient woke up coughing. Denies any pain at this time. Patient has fallen back to sleep snoring again.
--- NOTE | 2025-09-21 11:35 | PC.NURSE ---
UPdated Dr. Terry about patient's blood pressure going down. Although patient's blood pressure was 92/49 upon arrival , blood pressure continued to go down Dr. Terry gave 2 doses of phenylephrine blood pressures did go up at 1135 bp was 90/56
--- NOTE | 2025-09-21 11:42 | PC.NURSE ---
updated anesthesia at this time Dr. Terry states he is aware and will be out to treat low BP again in a few minutes 89/56 current blood pressure.
--- NOTE | 2025-09-21 11:47 | PC.NURSE ---
Patient is resting comfortable applied warm blankets and patient states it feels wonderful. Patient fell back asleep snoring.
--- NOTE | 2025-09-21 11:56 | PC.NURSE ---
phenyalefferin give at this time
--- NOTE | 2025-09-21 12:06 | PC.NURSE ---
Phenyeleferin helps to elevate blood pressure but continues to fall
[2025-09-21] MEDS: CEFAZOLIN SODIUM/DEXTROSE,ISO 2 GM/50 ML PIGGYBACK IV ×2 (13:53→20:10)
[2025-09-21] MEDS: DOCUSATE SODIUM 100 MG CAPSULE PO (13:55)
[2025-09-21] MEDS: OXYCODONE HCL/ACETAMINOPHEN 5MG/325MG 2 TAB PO ×2 (13:55→20:11)
[2025-09-21] MEDS: IBUPROFEN 400 MG TABLET 800 MG PO (17:20)
[2025-09-21] MEDS: SIMETHICONE 80 MG TAB.CHEW PO ×2 (17:21→20:12)
--- OUTSIDE RECORDS SUMMARY | 2025-09-21 19:38 | XMS_ITS | Continuity of Care Document ---
Author Organization [facility] Address [address] [place] [address] Phone Care Team Providers Care Professor Of Geology Name Role Phone Dora Ortega MD Attending Provider [phone] NON STAFF Primary Care Provider Walter Daniel DO Attending Provider Dora Ortega MD Other Provider Lisa Grady MD Primary Care Provider [phone] Care Teams Visit Care Team Team Status: Inactive Member Role/Relationship Status Dates Dora Ortega MD Attending Provider Active Start: July 01, 2025 End: July 01, 2025NON STAFFPrimary Care ProviderActiveStart: July 01, 2025 End: July 01, 2025 Visit Care Team Team Status: Inactive Member Role/Relationship Status Dates Walter Cox DO Attending Provider Active Start : July 02, 2025 End: July 02, 2025 Visit Care Team Team Status: Active Member Role/Relationship Status Dates Dora Ortega MD Attending Provider Active Start: July 30, 2025 Dora Ortega MDOther ProviderActiveStart: July 30, 2025 Andriy Ortiz Care ProviderActiveStart: July 30, 2025 Visit Care Team Team Status: Inactive Member Role/Relationship Status Dates Dora Ortega MD Attending Provider Active Start: August 30, 2025 End: August 30, 2025Andriy Ortiz Care ProviderActiveStart: August 30, 2025 End: August 30, 2025 Patient Care Team Team Status: Inactive Member Role/Relationship Status Dates Walter Cox DO Attending Provider Active Start : September 21, 2025 End: September 21, 2025 Chief Complaint and Reason for Visit Chief Complaint Admit Date Refer: diarrhea July 01, 2025 10 :02am Unknown July 02, 2025 12 :46pm diarrhea,abd cramping, bloating Septembe r 2024 9:58am follow up EGD/Colon/Labs August 30 10:46am Unknown September 21, 2025 10:12am Reason for Visit Admit Date Abdominal cramping July 01, 2025 10 :02am Diarrhea July 01, 2025 10 :02am Gas bloat syndrome July 01, 2025 10 :02am Hemorrhoids July 01, 2025 10 :02am Abdominal cramping August 30, 2025 1 0:46am Diarrhea August 30, 2025 1 0:46am Frequent bowel movements August 30 10:46am Gas bloat syndrome August 30, 2025 1 0:46am Allergies, Adverse Reactions, Alerts Allergen Type Severity Reaction Last Updated Verified Status corn Allergy Unknown Rash August 30, 2025 10:06am Yes Active Egg Derived Allergy Unknown Unknown Reaction August 30, 2025 10:06am Yes Active milk Allergy Unknown Unknown Reaction August 30, 2025 10:06am Yes Active olanzapine Allergy Unknown Rash August 30, 2025 10:06am Yes Active peanut Allergy Unknown Unknown Reaction August 30, 2025 10:06am Yes Active samidorphan Allergy Unknown Rash August 30, 2025 10:06am Yes Active amlodipine Adverse Reaction Mild Unknown Reaction Oc tober 2024 10:06am Yes Active prednisone Adverse Reaction Mild Unknown Reaction Oc tober 2024 10:06am Yes Active Social History Smoking Status Status Start Date End Date Date of Observa tion Smokes tobacco daily (finding) July 30, 2025 10:45am Observation Status Observation Response Date of Response Legal Sex Female (finding) Sex Assigned At BirthFemaleJuly 1984 Family History Relationship Condition Age at Onset Recorded Date/T reggie family member Malignant neoplasm Unknown fatherMalignant neoplasmUnknownHypertensionUnknownfamily memberCrohn's disease UnknownmotherHypertensionUnknown Problems Active Problems Problem Diagnosis/Recorded Date Onset Date Stat PTSD (post-traumatic stress disorder) July 01 9:13am Unknown Active Abdominal cramping July 01, 2025 9:18am Unknown Active Gas bloat syndrome July 01, 2025 9:17am Unknown Active Anxiety July 01, 2025 9:14am Unknown Act griselda Diarrhea July 01, 2025 9:04am Unknown Act griselda Frequent bowel movements August 30, 2025 10:16am Un known Active Bipolar 1 disorder July 01, 2025 9:13am Unknown Active Hemorrhoids July 01, 2025 9:18am Unknown Act griselda High blood pressure July 01, 2025 9:13am Unknown Active Constipation July 01, 2025 9:17am Unknown Act griselda Asthma July 01, 2025 9:14am Unknown Act griselda Medications Medication Status Dose Units Route Directions Qty Days Refills S tart Date Stop Date End Date Reason(s) Instructions Adherence Dicyclomine 10 mg capsule Active 10 MG PO Twice daily 60 30 5 August 11, 2025 11:00pm UnknownBifidobacterium Longum (Align (B.Longum)) 10 million cell capsule Arvwuxsykbds7GN.MIRFBRJ23213Geibkcq 2024 11:00pmOctober 2024 10:07am1 capsule orally once a day orally;Quetiapine (Seroquel) 50 mg xjeorjCihfub233MUCK DailySept2024 11:00pmUnknownMetoprolol Succinate 50 mg tablet extended release 24 exOojons37UCWZEzmqVycmsj 2024 11:00pmUnknownAlprazolam 0.5 mg tabletActive0.5MGPOTwice daily as needed for anxietyAugust 2024 11:00pmUnknownFluoxetine 20 mg rhjimwxAdtqzy34NVGLRnuhlWiuviw 2024 11:00pm UnknownCholecalciferol (Vitamin D3) 50 mcg (2,000 unit) fegppvwVqtapzaqorbg55MLH PODailyAugust 2024 11:00pmOctober 2024 10:07amMetformin 500 mg tablet extended release 24 hrActiveMGPOOnceOctober 2024 11:00pmUnknown Topiramate 50 mg tabletActiveMGPOTwice daily as neededOctclinton [facility] hospital 2024 11:00pm UnknownDicyclomine 10 mg sybywkkWgiicn01JLGMGfgto times yfdov11519Nutblus 2024 11:00pmUnknownBifidobacterium Longum (Align (B.Longum)) 10 million cell eoxfcvaHnkzgm5IY.JBSEKXL71982Hhljaaq 2024 11:00pm1 capsule orally once a day;Unknown Vital Signs Vital Reading Result Reference Range Collection Date/Time Height 66 [in_i] July 01, 2025 9:33tiFdxmzd96.37 kgAugust 2024 9:06amHeart Rate83 /min 60-100August 2024 9:06amBP Ktcwzgxo630 mm[Hg]100-140August 2024 9:06amBP Loakzlbvk48 mm[Hg]60-100August 2024 9:06amBMI (Body Mass Index) 28.2 kg/w8Yxhnhr 2024 9:04klLeryam70 [in_i]July 30, 2025 9:45am Rsibdy39.56 kgSeptember 2024 9:45amHeart Rate87 /toq54-136Ewhdelqei 19th, 2025 11:30amRespiratory rate18 /ndt47-36Cbmojetfn 2024 11:30amOxygen saturation by Pulse %95-100September 2024 11:30amBP Xvidaotk07 mm[Hg]100-140September 2024 11:30amBP Uhfdjswir76 mm[Hg]60-100September 2024 11:17soVapcsl28 [in_i]August 30, 2025 10:37ifUznekx04.92 kgOctober 2024 10:06amHeart Rate87 /ebj52-411Upolgwy 2024 10:06amBP Systolic 113 mm[Hg]100-140October 2024 10:06amBP Oxxydjjaq09 mm[Hg]60-100October 2024 10:06amBMI (Body Mass Index)28.0 kg/o2Aueownx 2024 10:06am Advance Directives Advance Directive Response Recorded Date/ Time Advance Directives No May 07 9:48am Insurance Providers Guarantor Lupe Owens Address [address] [place] [id number] Info.Home Phone: Coverage Status Update:2025 Payer Group Member ID Coverage Type Subscriber Relationship to Subscriber Effective Date Expiration Date [employer] [id number] Gentry Id: [id number] Ladonna [facility] [id number] Home Phone: Email: [email or web address] Encounters Encounter Location(s) Arrival/Admit Date Discharge/Departure Date Discharge/Departure Disposition Provider(s) Departed Physician/ Provider Office Visit -[facility] July 01, 2025 10:02am July 01, 2025 10:44am Discharged to home care or self care (routine discharge) Dora Ortega MD Departed Referred -[facility] July 02, 2025 12:46pm July 02, 2025 12:47pm Discharged to home care or self care (routine discharge) Walter Cox Non-patient / Non-visit -[facility] 2024 9:58am Damien Hansonarted Physician/Provider Office Visit-[facility] August 30, 2025 10:46amOctober 2024 11:28amDischarged to home care or self care (routine discharge)Pierre Hanson Referred-[facility] 2024 10:12amNovember 2024 10:13amDischarged to home care or self care (routine discharge)Walter Cxo Recent Diagnosis Onset Date Admit Date Abdominal cramping Unknown July 01, 2025 10:02am Diarrhea Unknown July 01 10:02am Gas bloat syndrome Unknown July 01, 2025 10:02am Hemorrhoids Unknown July 01 10:02am Abdominal cramping Unknown August 30, 2025 10:46am Diarrhea Unknown August 30 10:46am Frequent bowel movements Unknown August 30, 2025 10:46am Gas bloat syndrome Unknown August 30, 2025 10:46am Assessments Author Dora Ortega [facility] 2024 9:20wc41-cxef-krg female referred to the GI clinic for evaluation of diarrhea. +alternating diarrhea/constipation(predominantly diarrhea) for almost a year. +bloating and abdominal pain. + Hematochezia Stool culture, TSH and celiac panel were checked at [facility] and they were normal. - Will get Labs including CBC with diff, TSH, ESR, CRP, fecal calprotectin HIV ab, Celiac panel, fecal elastase and C. difficile - Will arrange for CT abdomen/pelvis with contrast -Will arrange for EGD/colonoscopy Author [facility] 10:01tb88-tmxs-obv female referred to the GI clinic for evaluation of diarrhea. +alternating diarrhea/constipation(predominantly diarrhea) for almost a year. +bloating and abdominal pain. Stool culture, TSH and celiac panel, ESR, CRP, fecal calprotectin, HIV were negative EGD/colonoscopy showed internal hemorrhoids otherwise normal findings, esophageal biopsy was negative for Jay's, gastric biopsy was negative for H. pylori, duodenal biopsy was negative for celiac, colonic biopsies were negative for microscopic colitis. Patient tried Bentyl 10 mg twice daily and caused improvement of her symptoms without complete resolution - I explained to patient that the etiology of her symptoms are likely related to IBS-D. Will increase Bentyl to 10 mg 3 times daily and I recommended the patient to start probiotics. I also counseled the patient about low FODMAP diet. -I offered the patient to do hydrogen breath test to evaluate for SIBO however patient cannot drive to [place] or [place]. Will provide rifaximin course empirically Plan of Treatment Future Tests Future scheduled test information is unavailable Pending Tests Test Name Ordered Date Scheduled Date CT abdomen pelvis w con July 01, 2025 9:23am Future Visits Future appointment information is unavailable Future Procedures Procedure Name Ordered Date Scheduled Date Discharge Order July 30, 2025 10:57am Sep tember 2024 10:57am Future Medications Future medication information is unavailable Patient Instructions Instruction Admit Date [facility] Hemorrhoids Discha rge Instructions Know your MedsSeptember 2024 9:58am
[2025-09-21] MEDS: TEMAZEPAM 15 MG CAPSULE 30 MG PO (20:12)
[2025-09-21] MEDS: KETOROLAC TROMETHAMINE 30 MG/ML VIAL IVP (22:23)
[2025-09-22] VITALS: BP 118/67; PULSE 84; TEMP 36.7; O2SAT 96
[2025-09-22 04:00] VITALS: BP 106/68; PULSE 93; TEMP 36.8; O2SAT 96
[2025-09-22] MEDS: OXYCODONE HCL/ACETAMINOPHEN 5MG/325MG 2 TAB PO ×2 (05:16→11:16)
[2025-09-22 05:54] LABS: Hematocrit 32.0 % (36.0-48.0); Hemoglobin 10.3 g/dL (12.0-16.0); Immature Granulocytes Abs Auto 0.04 10^3/uL (0.00-0.03); Immature Granulocytes Pct Auto 0.3 % (0.0-0.5); Lymphocytes Absolute Auto 1.8 10^3/uL (1.2-3.8); Mean Corpuscular HGB Conc 32.2 g/dL (29.9-35.2); Mean Corpuscular Hemoglobin 28.0 pg (26.7-34.0); Mean Corpuscular Volume 87.0 fL (81.0-99.0); Platelet Count 255 10^3/uL (150-450); Red Blood Count 3.68 10^6/uL (4.20-5.40); White Blood Count 12.2 10^3/uL (4.0-11.0)
[2025-09-22] MEDS: ENOXAPARIN SODIUM 40 MG/0.4 ML SYRINGE SUBQ (06:11)
[2025-09-22] MEDS: SIMETHICONE 80 MG TAB.CHEW PO (06:52)
[2025-09-22] MEDS: DIPHENHYDRAMINE HCL 25 MG CAPSULE PO (06:52)
[2025-09-22 07:03] VITALS: BP 103/66; PULSE 83; TEMP 36.6; O2SAT 97
--- OUTSIDE RECORDS SUMMARY | 2025-09-22 08:22 | XMS_ITS | Clinical Summary ---
Author Organization [facility] Address [id number] [address] [place] [address] Care Team Providers Care Conduit Mechanic Name Role Phone Lisa Grady MD Primary Care Provider [phone] Allergies Active AllergyReactionsCriticalityNoted CueyXfnawxtcYslsiceqmlVzloZse96/29/2025 PrednisoneOther (See Comments)12/09/2024 Light headed Medications * [...] DateDiagnosed DateLumbosacral spondylosis without myelopathy 4Post concussion /06/2022Intractable chronic migraine without aura and with status ddvsvudjeks38/06/2022ipolar 1 disorder, depressed, severe 09/27/2022Generalized anxiety disorder with panic rcadwib0609/06/2022ost traumatic stress disorder (PTSD)09/06/2022 Encounters * This document contains information received from the source organization and may not represent a complete record from that organization. DateTypeDepartmentCare RirgWktmgogoeic51/17/2025Telephone [facility] - Pharmacy Medication Management [address] [place] [address] Shaun Lyon, [facility] 08/24/20256750Ohgljh73/24/2025 10:28 AM EDT - 08/04/2025 11:59 PM EDTHospital Encounter [facility] [address] [place] [address] Diarrhea, unspecified type; Abdominal cramps; Gas bloat syndrome Discharge Disposition: Home08/03/20258611Hvzxmd80/16/2025Results [facility] [address] [place] [address] Brit Lantigua, TALENT DEVELOPMENT DIRECTOR-TALENT MANAGER Hemoglobin A1c, Lipid qadgdkb2307/27/20258559Yibjly38/16/2025Orders Only [facility] [address] [place] [address] Brit Lantigua, TALENT DEVELOPMENT DIRECTOR-TALENT MANAGER Assessment of effects of psychotropic drug in patient at risk for metabolic syndrome (Primary Dx)07/22/20250940Leevhv21/08/5324Ocakbn48/19/2025Travelfrom Last 3 Months Immunizations ImmunizationAdministration DatesNext FoaBQY3101/29/2020(),01/27/2020(Deferred: - IMMUNE)Tdap01/29/2020(),01/27/2020()Wxnvcomet62/20/2020(Deferred: - Immunity) Family History Medical HistoryRelationNameCommentsAnxiety disorderFatherBipolar disorderFather Pancreatic cancerFatherDepressionMaternal AuntHypertensionMaternal Grandmother HypertensionMotherBreast cancerPaternal GrandmotherDiabetesPaternal Grandmother DepressionPaternal UncleRelationNameStatusCommentsFatherDeceasedMaternal Aunt AliveMaternal GrandmotherMotherAlivePaternal GrandmotherPaternal UncleAlive Social History Tobacco UseTypesPacks/DayYears UsedDateSmoking Tobacco: ObbuxgMaebqhiamg9634789 - 2018Vaping/E-cigarettesSmokeless Tobacco: Never Tobacco Cessation:Counseling Given: Not Answered Alcohol UseStandard Drinks/WeekCommentsNot Currently0 (1 standard drink = 0.6 oz pure alcohol)PHQ-2AnswerDate RecordedTotal Frxze1553/29/2025ChildcareAnswerDate TaiaolacXaksqcfnlPabvkdm94/12/2019EmploymentAnswerDate RecordedEmploymentUnknown 04/22/2019Hunger ScreeningAnswerDate RecordedWithin the past 12 months we worried whether our food would run out before we got money to buy more.Never True03/26/2025Within the past 12 months the food we bought just didn't last and we didn't have money to get more.Never True03/26/2025Purpose - LifeAnswerDate RecordedPurpose and direction in pungRyknlfs14/11/2021EducationAnswerDate RecordedWhat is the highest level of school you have completed or the highest degree you have received?Some college, no frlndb052CommentsNoSex and Gender InformationValueDate RecordedSex Assigned at BirthNot on fileLegal SjvWdlpsp06/06/2015 11:39 AM EDTGender IdentityNot on fileSexual OrientationNot on file Last Filed Vital Signs Vital SignReadingTime TakenCommentsBlood Qwfbvlsw582/71003/26/2025 11:45 PM EDT Xkjoy522203/26/2025 11:45 PM RYHVvnbeozdwjo45.8 ??C (98.3 ??F)03/26/2025 11:15 PM EDTRespiratory Stbm717803/26/2025 11:45 PM EDTOxygen Wtzhncfjua50%03/26/2025 11:45 PM EDTInhaled Oxygen Concentration--Rtoltb46.4 kg (175 lb)03/26/2025 11:15 PM QOHRtemkn792.6 cm (5' 6 )03/26/2025 11:15 PM EDTBody Mass Index28.25003/26/2025 11:15 PM EDT Plan of Treatment Health MaintenanceDue DateLast DoneCommentsDTaP,Tdap and Td Vaccines (6 - Tdap) , 09/15/1987, 03/07/1987, Additional history existsAdult BMI Follow Up Plan2004Influenza Pmicpqy7407/12/2025Depression Screening dult BMI Iyeomujkv62Tobacco Screening Pap Smear, 01/31/2023 Medical Devices Not on file Procedures Procedure NamePriorityDate/TimeAssociated DiagnosisCommentsCT ABDOMEN AND PELVIS W TPNIKpncheu91/24/2025 11:09 AM EDT Diarrhea, unspecified type Abdominal cramps Gas bloat syndrome LIPID SZPLEOZFkxwlap62/16/2025 10:37 AM EDT Assessment of effects of psychotropic drug in patient at risk for metabolic syndrome HEMOGLOBIN B0CIstmnoe05/16/2025 10:37 AM EDT Assessment of effects of psychotropic drug in patient at risk for metabolic syndrome HEMOGLOBIN A3IOmkflfv59/11/2025 12:01 PM EDT Assessment of effects of psychotropic drug in patient at risk for metabolic syndrome LIPID CFQFKOZMqraqkq30/11/2025 12:01 PM EDT Assessment of effects of psychotropic drug in patient at risk for metabolic syndrome CALPROTECTIN, JMoeqtof74/22/2025 6:23 AM EDT Diarrhea, unspecified Unspecified abdominal pain Other specified diseases of the digestive system C DIFFICILE BY UQJCldvcdc85/22/2025 6:23 AM EDT Diarrhea, unspecified Unspecified abdominal pain Other specified diseases of the digestive system HIV 1&2 AB/AG SCREEN (P24 AG)Nfcxbsd1707/01/2025 11:48 AM EDT Diarrhea, unspecified Unspecified abdominal pain Other specified diseases of the digestive system ERYTHROCYTE SEDIMENTATION RATE (ESR)Vqtlqsu4107/01/2025 11:48 AM EDT Diarrhea, unspecified Unspecified abdominal pain Other specified diseases of the digestive system C-REACTIVE HNYVQLYRfrsuke61/21/2025 11:48 AM EDT Diarrhea, unspecified Unspecified abdominal [...] HEMOGLOBIN A1C6.0(H)4.4 - 5.6 %07/27/2025 1:59 PM [facility]ATORYComment: ?ADA Guidelines ?Result ?HgbA1c ? Normal : ? less than 5.7 % ? Prediabetes : ?5.7 % ??to 6.4 % Diabetes : > 6.4 % ?Use with caution in patients with abnormal hemoglobin variants as ??the half-life of red blood cells and in vivo glycation rates are ??affected. EST. AVERAGE DQSPERE251nm/dL07/27/2025 1:59 PM [facility] LABORATORYSpecimen (Source)Anatomical Location / LateralityCollection Method / VolumeCollection TimeReceived TimeBloodVenous blood / UnknownVenipuncture / Sgehego3007/27/2025 10:37 AM EDT07/27/2025 10:37 AM EDT Narrative Authorizing ProviderResult TypeResult StatusJaclyn Toby Lantigua TALENT DEVELOPMENT DIRECTOR-CNPLAB BLOOD ORDERABLESFinal ResultPerforming OrganizationAddressCity/State/ZIP CodePhone Number [facility] [address] [place] [id number], * Lipid profile (07/27/2025 10:37 AM EDT) Only the most recent of2 resultswithin the time period is included. ComponentValueRef RangeTest MethodAnalysis TimePerformed AtPathologist Signature LDIICREZDBR820900 - 200 mg/dL07/27/2025 2:03 PM [facility] MFZDCGPRSNNHYDRBMVYVFQ73025 - 150 mg/dL07/27/2025 2:03 PM [facility] LABORATORYHDL POLFDKTMSNR51>39 mg/dL07/27/2025 2:03 PM [facility]ORATORYComment: HDL <40 mg/dL - High Risk HDL > or = 40mg/dL- Desirable HDL >60 mg/dL - Negative Risk LDL (CALC)103<130 mg/dL07/27/2025 2:03 PM [facility] Comment: LDL <100 mg/dL - Desirable LDL >160 mg/dL - High Risk CHOLESTEROL:HDL3.31.0 - 5.009/ 2:03 PM [facility] LABORATORYVERY LOW PBLECOPCENS680 - 30 mg/dL07/27/2025 2:03 PM [facility]ORATORYSpecimen (Source)Anatomical Location / Laterality Collection Method / VolumeCollection TimeReceived TimeBloodVenous blood / UnknownVenipuncture / Gdmhrww5607/27/2025 10:37 AM EDT07/27/2025 10:37 AM EDT Narrative Authorizing ProviderResult TypeResult StatusJaclcristina Toby Lantigua TALENT DEVELOPMENT DIRECTOR-CNPLAB BLOOD ORDERABLESFinal ResultPerforming OrganizationAddressCity/State/ZIP CodePhone Number [facility] [address] [place] [address], * Calprotectin, F (07/02/2025 6:23 AM EDT)ComponentValueRef RangeTest Method Analysis TimePerformed AtPathologist SignatureCALPROTECTIN, F<50.0<50.0 (Normal) mcg/g007/05/2025 8:06 PM [facility]ORATORIESComment: Test Performed by: [facility] [address] [place] [address] Export Agent: Disha Massey Ph.D.; CLIA# [id number] Specimen (Source)Anatomical Location / LateralityCollection Method / Volume Collection TimeReceived TimeStoolFeces / Lripept4907/02/2025 6:23 AM EDT07/02/2025 7:25 AM EDT Narrative Authorizing ProviderResult TypeResult StatusImakasandra Ortega MDBODY FLUIDS AND STOOLS ORDERABLESFinal ResultPerforming OrganizationAddressCity/State/ZIP CodePhone Number [facility] [address] [place] [address], * C difficile by PCR (07/02/2025 6:23 AM EDT)ComponentValueRef RangeTest Method Analysis TimePerformed AtPathologist SignatureTOXIGENIC C DIFFNegativeNegative 07/02/2025 2:42 PM [facility] KHREGJOGPG392 EDD6Ktsyxmfxzzc NegativePresumptive Kgkpfmwb68/22/2025 2:42 PM [facility]ORATORYComment:Assay methodology is nucleic acid amplification by real-time PCR for detection of C. difficile toxin gene sequences performed on [employer] Wireless Instrument System.Specimen (Source)Anatomical Location / Laterality Collection Method / VolumeCollection TimeReceived TimeStoolFeces / Unknown 07/02/2025 6:23 AM EDT07/02/2025 7:25 AM EDT Narrative Authorizing ProviderResult TypeResult StatusImad Jordan DEL CID FLUIDS AND STOOLS ORDERABLESFinal ResultPerforming OrganizationAddressCity/State/ZIP CodePhone Number [facility] [address] [place] [address], * HIV 1&2 AB/AG Screen (P24 AG) (07/01/2025 11:48 AM EDT)ComponentValueRef Range Test MethodAnalysis TimePerformed AtPathologist SignatureHIV 1 AND 2 AB/AG YMCYXVHmb-LfnrrdggUnx-Uiduycdp30/21/2025 6:37 PM [facility]ATORYSpecimen (Source)Anatomical Location / LateralityCollection Method / VolumeCollection TimeReceived TimeBloodVenous blood / UnknownVenipuncture / Xyelmjp0807/01/2025 11:48 AM EDT07/01/2025 11:49 AM EDT Narrative [facility] - 07/01/2025 6:37 PM EDT [...] BLOOD ORDERABLES Final ResultPerforming OrganizationAddressCity/State/ZIP CodePhone Number [facility] [address] [place] [address], * Erythrocyte Sedimentation Rate (ESR) (07/01/2025 11:48 AM EDT)ComponentValue Ref RangeTest MethodAnalysis TimePerformed AtPathologist SignatureESR, Erythrocyte Sedimentation Ckdi445 - 20 mm/h007/01/2025 6:12 PM [facility]ATORYSpecimen (Source)Anatomical Location / Laterality Collection Method / VolumeCollection TimeReceived TimeBloodVenous blood / UnknownVenipuncture / Jlxztav7607/01/2025 11:48 AM EDT07/01/2025 11:49 AM EDT Narrative Authorizing ProviderResult TypeResult StatusImad Asaad MDLAB BLOOD ORDERABLES Final ResultPerforming OrganizationAddressCity/State/ZIP CodePhone Number [facility] [address] [place] [address], * C-reactive protein (07/01/2025 11:48 AM EDT)ComponentValueRef RangeTest Method Analysis TimePerformed AtPathologist SignatureC REACTIVE PROTEIN0.3<=0.7 mg/dL 07/01/2025 5:55 PM [facility]ATORYSpecimen (Source) Anatomical Location / LateralityCollection Method / VolumeCollection Time Received TimeBloodVenous blood / UnknownVenipuncture / Rlwtbzn9407/01/2025 11:48 AM EDT07/01/2025 11:49 AM EDT Narrative Authorizing ProviderResult TypeResult StatusImad Asaad MDLAB BLOOD ORDERABLES Final ResultPerforming OrganizationAddressCity/State/ZIP CodePhone Number [facility] [address] [place] [address], from Last 3 Months Insurance Advance Directives * Full Code (Latest Code Status on File) Date ActivatedDate InactivatedComments01/27/2020 1:16 PM01/29/2020 2:04 PM * Full Code Date ActivatedDate InactivatedComments07/10/2018 2:51 PM07/12/2018 9:44 PM Care Teams Team MemberRelationshipSpecialtyStart DateEnd Date Lisa Grady MD [address] [place] [address] PCP - GeneralFamily Medicine12/31/24
--- OUTSIDE RECORDS SUMMARY | 2025-09-22 08:22 | XMS_ITS | Encounter Summary ---
Author Organization [facility] Address [address] [place] [address] Care Team Providers Care Credit Control Manager Name Role Phone Lisa Grady MD Primary Care Provider [phone] Mirella Parekh PHYSICIAN ASSISTANT PRIMARY CARE Unavailable Encounter Details DateTypeDepartmentCare Team (Latest Contact Info)Rxvnfreucga07/11/2025bstract [facility] [address] [facility] [address] [phone] Walter Cox DO [address] [facility] [facility] [address] [facility] [address] [place], [place] [id number] Social History Tobacco UseTypesPacks/DayYears UsedDateSmoking Tobacco: NeverSmokeless [...] the phone with family, friends, or neighbors?Patient ekcsmqow40/21/2024How often do you get together with friends or relatives?Patient lupooebr56/21/2024 How often do you attend orthodoxy or jain services?Never4Do you belong to any clubs or organizations such as orthodoxy groups, unions, fraternal or athletic groups, or school groups?No07/01/2024How often do you attend meetings of the clubs or organizations you belong to?Never07/01/2024re you , , , , never , or living with a partner?Never lvjvxby1307/01/2024UDIT-CAnswerDate RecordedQ1: How often do you have a drink containing alcohol?Patient eeqraxqg60/21/2024Q2: How many drinks containing alcohol do you have on a typical day when you are drinking?Patient declined 07/01/2024Q3: How often do you have six or more drinks on one occasion?Less than cyckckk4707/01/2024Overall Financial Resource Strain (CARDIA)AnswerDate Recorded How hard is it for you to pay for the very basics like food, housing, medical care, and heating?Not very hard07/01/2024HQ-2AnswerDate RecordedPatient Health Questionnaire-2 Uraph525Finorem [facility] [place] of Occupational Health - Occupational Stress QuestionnaireAnswerDate [...] were you homeless or living in a half-way (including now)?No4CommentsNoSex and Gender Information ValueDate RecordedSex Assigned at BirthNot on fileLegal DrxYrdtcy54/15/2023 7:29 PM EDTGender SrovizvqPzgjks53/03/2023 1:21 PM EDTSexual OrientationStraight 08/13/2023 1:21 PM [...] DateEnd Date Lisa Grady MD [address] [place] [address] PCP - [facility]03/19/23 Mirella Parekh NP PCP - [facility]11/11/24documented as of this encounter
--- OUTSIDE RECORDS SUMMARY | 2025-09-22 08:22 | XMS_ITS | Clinical Summary ---
Author Organization [facility] Address [address] [place] [address] Care Team Providers Care Java Portal Developer Name Role Phone Lisa Grady MD Primary Care Provider [phone] Mirella Parekh BUSINESS INTELLIGENCE ARCHITECT Unavailable Allergies Active AllergyReactionsCriticalityNoted DateCommentsAmlodipineItching,RashLow 12/09/20243603KmhxkmrhdtUnztq55/29/2025 Light headed Medications MedicationSigDispense QuantityRefillsLast FilledStart DateEnd [...] tablet Take 100 mg by mouth at evvbzab29Discontinued Active Problems ProblemNoted DateDiagnosed DateAcne kbcmruyd43/13/4333Wnxvymsglhy82/13/2024 Thpgsta1703/23/2024ipolar 1 jfzsqqux29/13/6930Znikwcldxu91/13/2024 Sodqmwthcopkmprer15/13/2024Intractable chronic migraine without aura and with status jahwktqrqej46/06/2022 Encounters DateTypeDepartmentCare KzwfSdwseiazfkl92/12/2025Clinisync Result Encounter [facility] External Department Unsolicited Walter Cox, DO 09/21/2025linisync Result Encounter [facility] External Department Unsolicited Walter Cox, DO 09/21/2025bstract [facility] [address] [place] [phone] Walter Cox, DO 5Clinisync Result Encounter [facility] External Department Unsolicited Walter Cox, DO 08/24/2025 1:00 PM EDTConsult [facility] [address] [place] [address] Walter Cox, DO Pre-op examination; Menorrhagia with irregular cycle; Pelvic pain in female; Dysmenorrhea; Dyspareunia, mndrzp4108/24/2025amboo flowsheet [facility] [address] [facility] [place] [phone] Walter Cox, DO 08/23/20256327Rajnag05/17/2025 1:30 PM EDTConsult [facility] [address] [place] [phone] Walter Cox, DO Pelvic pain; Abnormal uterine bleeding (AUB)07/28/2025Telephone [facility] [address] [place] [phone] Jesenia Nunez LPN 07/28/2025amboo flowsheet [facility] [address] [place] [address] Walter Cox, DO 07/27/20254954Kofkyd15/04/2025 11:00 AM EDTOffice Visit [facility] [address] [place] [phone] Renetta Kay, DEVIN [place] iubuwjqimss22/04/2025amboo flowsheet [facility] [address] [place] [address] Renetta Kay, BUSINESS INTELLIGENCE ARCHITECT 07/02/2025bstract [facility] [address] [place] [phone] Walter Cox, DO 07/02/2025bstract [facility] [address] [phone] Walter Cox, DO 07/02/2025bstract [facility] [address] [place] [address] Walter Cox, DO 5Clinisync Result Encounter [facility] External Department Unsolicited Walter Cox, DO 06/23/2025Telephone [facility] Medicine [address] [place] [address] Lisa Grady MD from Last 3 Months Family History Medical [...] the phone with family, friends, or neighbors?Patient hxfjyoel52/21/2024How often do you get together with friends or relatives?Patient pcbppzqo91/21/2024 How often do you attend mu-ism or rastafarian services?Never07/01/2024o you belong to any clubs or organizations such as mu-ism groups, unions, fraternal or athletic groups, or school groups?No07/01/2024How often do you attend meetings of the clubs or organizations you belong to?Never07/01/2024re you , , , , never , or living with a partner?Never fwkcpsk1207/01/2024UDIT-CAnswerDate RecordedQ1: How often do you have a drink containing alcohol?Patient /21/2024Q2: How many drinks containing alcohol do you have on a typical day when you are drinking?Patient declined 07/01/2024Q3: How often do you have six or more drinks on one occasion?Less than tampjvf8407/01/2024Overall Financial Resource Strain (CARDIA)AnswerDate Recorded How hard is it for you to pay for the very basics like food, housing, medical care, and heating?Not very hard07/01/2024HQ-2AnswerDate RecordedPatient Health Questionnaire-2 Tzbuj622Finlifepoint hospitals [place] of Occupational Health - Occupational Stress QuestionnaireAnswerDate [...] were you homeless or living in a long-term (including now)?No07/01/2024CommentsNoSex and Gender Information ValueDate RecordedSex Assigned at BirthNot on fileLegal FshSftici07/15/2023 7:29 PM EDTGender UnkjnupkIxruxo59/03/2023 1:21 PM EDTSexual OrientationStraight 08/13/2023 1:21 PM EDT Last Filed Vital Signs Vital SignReadingTime TakenCommentsBlood Sthbxfys387/6810 12:55 PM EDT Fjdnq319804/28/2025 11:15 AM EDTTemperature--Respiratory Qdoy039505/07/2024 4:40 PM EDTOxygen Lkuyretygm34%04/28/2025 11:15 AM EDTInhaled Oxygen Concentration-- Pmkciz92.8 kg (176 lb)08/24/2025 12:55 PM AUBLrebif232.4 cm (5' 5.5 )04/28/2025 11:15 AM EDTBody Mass Index28.845 11:15 AM EDT Plan of Treatment Health MaintenanceDue DateLast DoneCommentsPneumococcal Vaccine: Pediatrics (0 to 5 Years) and At-Risk Patients (6 to 64 Years) (1 of 2 - PCV)2005COVID- 19 Vaccine (1 - season)2025Influenza Vaccine (#1)2025 HPV/Gkjltv35//, 05/24/2021ervical Cancer Moecshkuw78/24/2028Pap Smear, 01/31/2023 Goals GoalPatient Goal TypeAssociated ProblemsRecent ProgressPatient-Stated?Author Help patient manage antidepressant medication Care PlanPatient on antidepressant monitoring Lisa Patricia MD Baseline PHQ-9 Care PlanBaseline PHQ-9Lisa Edwards MD Procedures Procedure NamePriorityDate/TimeAssociated DiagnosisCommentsALL CBC WITH AUTO WGHZAptrsyz75/12/2025 5:47 AM EST [facility] PREG QUANT IZKFvwizol66/11/2025 6:11 AM EST ALL CBC WITH AUTO GIRODuqcukv90/11/2025 6:11 AM EST ALL BASIC METABOLIC VGNJCWmbkwzx20/07/2025 12:55 PM EST HM[facility] LIVER LVQEYPnzfpfi51/07/2025 12:55 PM EST ALL TYPE AND VUPVVBFpyzfbl92/07/2025 12:55 PM EST CCF MVTKUjwpkdb83/07/2025 12:55 PM EST SRMCOH PROTHROMBIN TIME INR W/O KPZEKozmuhk69/07/2025 12:55 PM EST ALL CBC WITH AUTO DFGXCmyzgfe27/07/2025 12:55 PM EST [facility] PREG QUANT LEUHzxdwpo25/ 8:25 AM EDT ALL CBC WITH AUTO LWPNKcmqlno31/22/2025 8:25 AM EDT PAP BYWLIKuacehr14/24/2025 12:00 AM EDTTHINPREP PAP AND HPV MRNA E6/E7 REFLEX HPV 16,18/91Okrnpnr22/23/2023 from Last 3 Months or Most Recently Relevant to Health Maintenance Results * (ABNORMAL) ALL CBC WITH AUTO DIFF (09/22/2025 5:47 AM EST) Only the most recent of4 resultswithin the time period is included. ComponentValueRef RangeTest MethodAnalysis TimePerformed AtPathologist Signature TBH WBC12.2(H)4.0 - 11.0 10 3/uLTBHTBH RBC3.68(L)4.20 - 5.40 10 6/uLTBHTBH HGB 10.3(L)12.0 - 16.0 g/dLTBHTBH HCT32.0(L)36.0 - 48.0 %TBHTBH MCV87.081.0 - 99.0 fLTBHTBH MCH28.026.7 - 34.0 pgTBHTBH MCHC32.229.9 - 35.2 g/dLTBHTBH RDW14.311.0 - 15.0 %TBHTBH AYJ369824 - 450 10 3/uLTBHTBH MPV9.99.5 - 13.5 fLTBHNEUTROPHILS PERCENT AUTO77.3(H)43.0 - 75.0 %TBHLYMPHOCYTES PERCENT AUTO14.6(L)20.5 - 60.0 % TBHMONOCYTES PERCENT AUTO6.61.7 - 12.0 %TBHTBH EO %0.8(L)0.9 - 7.0 %TBHBASOPHILS PERCENT AUTO0.40.2 - 2.0 %TBHIMMATURE GRANULOCYTES PCT AUTO0.30.0 - 0.5 %TBH NEUTROPHILS ABSOLUTE AUTO9.4(H)1.4 - 6.5 10 3/uLTBHLYMPHOCYTES ABSOLUTE AUTO1.8 1.2 - 3.8 10 3/uLTBHMONOCYTES ABSOLUTE AUTO0.80.3 - 0.8 10 3/uLTBHTBH EO #0.10.0 - 0.7 10 3/uLTBHBASOPHILS ABSOLUTE AUTO0.10.0 - 0.1 10 3/uLTBHIMMATURE GRANULOCYTES ABS AUTO0.04(H)0.00 - 0.03 10 3/uLTBHSpecimen (Source)Anatomical Location / LateralityCollection Method / VolumeCollection TimeReceived Time 09/22/2025 5:47 AM EST09/22/2025 5:50 AM EST Narrative CLINISYNC - 09/22/2025 6:02 AM EST Authorizing ProviderResult TypeResult StatusCorey Kenny DOCLINISYNCFinal Result Performing OrganizationAddressCity/State/ZIP CodePhone Number [facility] * [facility] PREG QUANT HCG (09/21/2025 6:11 AM EST) Only the most recent of2 resultswithin the time period is included. ComponentValueRef RangeTest MethodAnalysis TimePerformed AtPathologist Signature HCG QUANTITATIVE<1mIU/mLTBHComment: 5-50 ? 0.2-1 WEEK 50-500 ? 1-2 WEEKS 100-5,000 ?2-3 WEEKS 500-10,000 ? 3-4 WEEKS 1,000-50,000 ?? 4-5 WEEKS 10,000-100,000 5-6 WEEKS 15,000-200,000 6-8 WEEKS 10,000-100,000 2-3 MONTHS Specimen (Source)Anatomical Location / LateralityCollection Method / Volume Collection TimeReceived Time09/21/2025 6:11 AM EST09/21/2025 6:15 AM EST Narrative CLINISYNC - 09/21/2025 6:37 AM EST Authorizing ProviderResult TypeResult StatusCorey Kenny DOCLINISYNCFinal Result Performing OrganizationAddressCity/State/ZIP CodePhone Number [facility] * SRMCOH PROTHROMBIN TIME INR W/O COUM [...] Kenny DOCLINISYNCFinal Result Performing OrganizationAddressCity/State/ZIP CodePhone Number [facility] * HM[facility] LIVER PANEL (09/17/2025 12:55 PM EST)ComponentValueRef RangeTest Method Analysis TimePerformed AtPathologist SignatureBILIRUBIN TOTAL0.40.2 - 1.0 mg/dLTBHBILIRUBIN DIRECT0.10.0 - 0.2 mg/dLTBHASPARTATE AMINO JAUUHBEBIKJ7218 - 37 U/LTBHALANINE RKBSUQOJOMXXNDWX4062 - 59 U/LTBHALKALINE VYDHYPMEBMK74434 - 116 U/LTBHTOTAL PROTEIN7.06.4 - 8.2 g/dLTBHALBUMIN LEVEL3.83.4 - 5.0 g/dLTBH GLOBULIN3.2g/dLTBHALBUMIN GLOBULIN RATIO1.2TBHSpecimen (Source)Anatomical Location / LateralityCollection Method / VolumeCollection TimeReceived Time 09/17/2025 12:55 PM EST09/17/2025 12:58 PM EST Narrative CLINISYNC - 09/17/2025 1:54 PM EST Authorizing ProviderResult TypeResult StatusCorey Kenny DOCLINISYNCFinal Result Performing OrganizationAddressty/State/ZIP CodePhone Number [facility] * [facility] APTT (09/17/2025 12:55 PM EST)ComponentValueRef RangeTest MethodAnalysis TimePerformed AtPathologist SignaturePARTIAL THROMBOPLASTIN TIME28.522.3 - 36.2 secTBHSpecimen (Source)Anatomical Location / LateralityCollection Method / VolumeCollection TimeReceived Time09/17/2025 12:55 PM EST09/17/2025 12:58 PM EST Narrative CLINISYNC - 09/17/2025 1:25 PM EST Authorizing ProviderResult TypeResult StatusCorey Kenny DOCLINISYNCFinal Result Performing OrganizationAddressCity/State/ZIP CodePhone Number [facility] * ALL TYPE AND SCREEN (09/17/2025 12:55 PM EST)ComponentValueRef RangeTest MethodAnalysis TimePerformed AtPathologist SignatureBLOOD TYPEB PositiveTBH ANTIBODY SCREENNEGATIVETBHSpecimen (Source)Anatomical Location / Laterality Collection Method / VolumeCollection TimeReceived Time09/17/2025 12:55 PM EST 09/17/2025 12:58 PM EST Narrative CLINISYFL - 09/17/2025 1:45 PM EST [facility] , ?? Authorizing ProviderResult TypeResult StatusCorey Kenny DOCLINISYNCFinal Result Performing OrganizationAddressCity/State/ZIP CodePhone Number [facility] * (ABNORMAL) ALL BASIC METABOLIC PANEL (09/17/2025 12:55 PM EST)ComponentValue Ref RangeTest MethodAnalysis TimePerformed AtPathologist CmjtpybbpRHANMJ427767 - 145 mmol/LTBHPOTASSIUM3.63.5 - 5.1 mmol/JZVPXUWLESWB478(H)98 - 107 mmol/LTBH CARBON MKNMTLV51.321.0 - 32.0 mmol/LTBHANION GAP14.7NZVAQVVCDT28609 - 106 mg/dLTBHBLOOD UREA HJJAKKVT49.07.0 - 18.0 mg/dLTBHCREATININE1.03(H)0.55 - 1.02 mg/dLTBHTBH EGFR-AF YEMENI>60>=60 mL/min/1.73m 2TBHTBH EGFR-NON AF YEMENI 60>=60 mL/min/1.73m 2TBHBUN CREATININE RATIO14.5RUFHXRNTOQ2.18.5 - 10.1 mg/dL TBHSpecimen (Source)Anatomical Location / LateralityCollection Method / Volume Collection TimeReceived Time09/17/2025 12:55 PM EST09/17/2025 12:58 PM EST Narrative CLINISYNC - 09/17/2025 1:54 PM EST Authorizing ProviderResult TypeResult StatusCorey Kenny DOCLINISYNCFinal Result Performing OrganizationAddressCity/State/ZIP CodePhone Number CLINISYNC TBH * Pap Smear (06/03/2025 12:00 AM EDT)Specimen (Source)Anatomical Location / LateralityCollection Method / VolumeCollection TimeReceived TimeSwabCervical swab / Unknown Narrative Authorizing ProviderResult TypeResult StatusCorey Kenny DOL CYTOLOGY ORDERABLESFinal ResultPerforming OrganizationAddressCity/State/ZIP CodePhone Number EXTERNAL LAB * THINPREP PAP AND HPV MRNA E6/E7 REFLEX HPV 16,18/45 (01/31/2023)ComponentValue Ref RangeTest MethodAnalysis TimePerformed AtPathologist SignatureCLINICAL INFORMATION:None givenNOMS LEGACY EXTERNAL LABLMP:NONE GIVENNOMS LEGACY EXTERNAL LABPREV. PAP:NONE GIVENNOMS LEGACY EXTERNAL LABPREV. BX:NONE GIVEN [facility]GACY EXTERNAL LABSOURCE:None givenN[facility]S LEGACY EXTERNAL LABSTATEMENT OF ADEQUACY:SEE COMMENTNOVA LEGACY EXTERNAL LABComment: Satisfactory for evaluation. Endocervical/transformation zone component present. INTERPRETATION/RESULT:Negative for intraepithelial lesion or malignancy.[facility] EXTERNAL LABCYTOTECHNOLOGIST:SEE COMMENTNOMS LEGACY EXTERNAL LABComment: RLP, CT(ASCP) CT screening location: [facility], [address] [place] [address]. COMMENTSEE COMMENTNOVA LEGACY EXTERNAL LABComment: EXPLANATORY NOTE: The Pap [...] E6/E7Not DetectedNot DetectedNOMS LEGACY EXTERNAL LABComment: Methodology: Ground Host/Hostess-Mediated Amplification This assay detects E6/E7 viral messenger RNA (mRNA) from 14 high-risk HPV types (16,18,31,33,35,39,45,51,52,56,58,59,66,68). Cervical sources are required for HPV testing. If a vaginal source from a patient who has had a total hysterectomy with removal of cervix was submitted, please contact the testing laboratory for alternative testing options. For additional information, please refer to http://education.Livestream/faq/FNS399v2 (This link if provided for information/ educational purposes only.) Specimen (Source)Anatomical Location / LateralityCollection Method / Volume Collection TimeReceived Time01/31/2023 Narrative Authorizing ProviderResult TypeResult StatusValered Del Meier CNMECW LABSFinal ResultPerforming OrganizationAddressCity/State/ZIP CodePhone Number [facility] from Last 3 Months or Most Recently Relevant to Health Maintenance Additional Health Concerns Active ProblemsNoted DateDiagnosed DatePatient on antidepressant monitoring plan 07/01/2024aseline PHQ-9007/01/2024 Insurance Care Teams Team MemberRelationshipSpecialtyStart DateEnd Date Lisa Grady MD [address], [place] [address] [facility] - [facility] Mirella Parekh NP PCP - [facility]11/11/24
--- OUTSIDE RECORDS SUMMARY | 2025-09-22 08:22 | XMS_ITS | Clinical Summary ---
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
--- OUTSIDE RECORDS SUMMARY | 2025-09-22 08:22 | XMS_ITS | Clinical Summary ---
Author Organization [facility] Address [address] [place] [address], [address] [place] [address] Care Team Providers Care Electrical Systems Design Engineer Name Role Phone Unavailable Primary Care Provider Unavailabl e Social History Tobacco UseTypesPacks/DayYears UsedDateSmoking Tobacco: Never Assessed CommentsUnknownSex and Gender InformationValueDate RecordedSex Assigned at Not on fileLegal VvwSasfnz45/10/2013 11:02 AM ESTGender IdentityNot on file Sexual OrientationNot on file Plan of Treatment Not on file
--- OUTSIDE RECORDS SUMMARY | 2025-09-22 08:22 | XMS_ITS | Encounter Summary ---
Author Organization [facility] Address [address] [place] [address] Care Team Providers Care Associate Professor Of Literacy Name Role Phone Lisa Grady MD Primary Care Provider [phone] Mirella Parekh TRAFFIC ENGINEERING DIRECTOR Unavailable Encounter Details DateTypeDepartmentCare Team (Latest Contact Info)Ejnukweqecx21/12/2025Clinisync Result Encounter [facility] External Department Unsolicited Walter Cxo, DO [address] [place] [address] Social History Tobacco UseTypesPacks/DayYears UsedDateSmoking Tobacco: NeverSmokeless [...] the phone with family, friends, or neighbors?Patient xqnojqve77/21/2024How often do you get together with friends or relatives?Patient qterudnk32/21/2024 How often do you attend voodoo or anglican services?Never4Do you belong to any clubs or organizations such as voodoo groups, unions, fraternal or athletic groups, or school groups?No07/01/2024How often do you attend meetings of the clubs or organizations you belong to?Never07/01/2024re you , , , , never , or living with a partner?Never jzidxfo7707/01/2024UDIT-CAnswerDate RecordedQ1: How often do you have a drink containing alcohol?Patient zepkmxns62/21/2024Q2: How many drinks containing alcohol do you have on a typical day when you are drinking?Patient declined 07/01/2024Q3: How often do you have six or more drinks on one occasion?Less than dvdkwfd9107/01/2024Overall Financial Resource Strain (CARDIA)AnswerDate Recorded How hard is it for you to pay for the very basics like food, housing, medical care, and heating?Not very hard07/01/2024HQ-2AnswerDate RecordedPatient Health Questionnaire-2 Dzkew291Finencompass [facility] [place] of Occupational Health - Occupational Stress QuestionnaireAnswerDate [...] Moved in the Last YearNot on file 4At any time in the past 12 months, were you homeless or living in a penitentiary (including now)?No07/01/2024CommentsNoSex and Gender Information ValueDate RecordedSex Assigned at BirthNot on fileLegal CpyVfcazk79/15/2023 7:29 PM EDTGender NzvmlejoVcqnip89/03/2023 1:21 PM EDTSexual OrientationStraight 08/13/2023 1:21 PM EDTdocumented as of this encounter Plan of Treatment Not on file documented as of this encounter Goals GoalPatient Goal TypeAssociated ProblemsRecent ProgressPatient-Stated?Author Help patient manage antidepressant medication Care PlanPatient on antidepressant monitoring Lisa Patricia MD Baseline PHQ-9 Care PlanBaseline PHQ-9Lisa Edwards, MDdocumented as of this encounter Procedures Procedure NamePriorityDate/TimeAssociated DiagnosisCommentsALL CBC WITH AUTO WBJHJiwgcit49/12/2025 5:47 AM EST documented in this encounter Results * (ABNORMAL) ALL CBC WITH AUTO DIFF (09/22/2025 5:47 AM EST)ComponentValueRef RangeTest MethodAnalysis TimePerformed AtPathologist SignatureTBH WBC12.2(H) 4.0 - 11.0 10 3/uLTBHTBH RBC3.68(L)4.20 - 5.40 10 6/uLTBHTBH HGB10.3(L)12.0 - 16.0 g/dLTBHTBH HCT32.0(L)36.0 - 48.0 %TBHTBH MCV87.081.0 - 99.0 fLTBHTBH MCH 28.026.7 - 34.0 pgTBHTBH MCHC32.229.9 - 35.2 g/dLTBHTBH RDW14.311.0 - 15.0 % TBHTBH ILC976534 - 450 10 3/uLTBHTBH MPV9.99.5 - 13.5 fLTBHNEUTROPHILS PERCENT AUTO77.3(H)43.0 - 75.0 %TBHLYMPHOCYTES PERCENT AUTO14.6(L)20.5 - 60.0 %TBH MONOCYTES PERCENT AUTO6.61.7 - 12.0 %TBHTBH EO %0.8(L)0.9 - 7.0 %TBHBASOPHILS PERCENT AUTO0.40.2 - 2.0 %TBHIMMATURE GRANULOCYTES PCT AUTO0.30.0 - 0.5 %TBH NEUTROPHILS ABSOLUTE AUTO9.4(H)1.4 - 6.5 10 3/uLTBHLYMPHOCYTES ABSOLUTE AUTO 1.81.2 - 3.8 10 3/uLTBHMONOCYTES ABSOLUTE AUTO0.80.3 - 0.8 10 3/uLTBHTBH EO # 0.10.0 - 0.7 10 3/uLTBHBASOPHILS ABSOLUTE AUTO0.10.0 - 0.1 10 3/uLTBHIMMATURE GRANULOCYTES ABS AUTO0.04(H)0.00 - 0.03 10 3/uLTBHSpecimen (Source)Anatomical Location / LateralityCollection Method / VolumeCollection TimeReceived Time 09/22/2025 5:47 AM EST09/22/2025 5:50 AM EST Narrative CLINISYNC - 09/22/2025 6:02 AM EST Authorizing ProviderResult TypeResult StatusCorey Kenny DOCLINISYNCFinal Result Performing OrganizationAddressCity/State/ZIP CodePhone Number [facility] documented in this encounter Visit Diagnoses Not on filedocumented in this encounter Additional Health Concerns Active ProblemsNoted DateDiagnosed DatePatient on antidepressant monitoring plan 4Baseline PHQ-904AssessmentNoted TimePHQ-9 Depression Total Score: 17004/28/2025 11:21 AM EDTdocumented as of this encounter Care Teams Team MemberRelationshipSpecialtyStart DateEnd Date Lisa Grady MD [address] [place] [address] [facility] - [facility] Mirella Parekh NP PCP - [facility]11/11/24documented as of this encounter
--- OUTSIDE RECORDS SUMMARY | 2025-09-22 08:22 | XMS_ITS | Encounter Summary ---
Author Organization [facility] Address [address] [place] [address] Care Team Providers Care Natural Resources Manager Name Role Phone Lisa Grady MD Primary Care Provider [phone] Mirella Parekh SOLID STATE TESTER Unavailable Encounter Details DateTypeDepartmentCare Team (Latest Contact Info)Gtllurjcgie03/07/2025linisync Result Encounter [facility] External Department Unsolicited Walter Cox, DO [address] [place] [address] Social History Tobacco UseTypesPacks/DayYears UsedDateSmoking Tobacco: NeverSmokeless [...] the phone with family, friends, or neighbors?Patient ujtyxhnz43/21/2024How often do you get together with friends or relatives?Patient qtooaqzl80/21/2024 How often do you attend restorationist or catholic services?Never4Do you belong to any clubs or organizations such as restorationist groups, unions, fraternal or athletic groups, or school groups?No07/01/2024How often do you attend meetings of the clubs or organizations you belong to?Never07/01/2024re you , , , , never , or living with a partner?Never floivhj4907/01/2024UDIT-CAnswerDate RecordedQ1: How often do you have a drink containing alcohol?Patient jvbpqxof44/21/2024Q2: How many drinks containing alcohol do you have on a typical day when you are drinking?Patient declined 07/01/2024Q3: How often do you have six or more drinks on one occasion?Less than bzbppeb2207/01/2024Overall Financial Resource Strain (CARDIA)AnswerDate Recorded How hard is it for you to pay for the very basics like food, housing, medical care, and heating?Not very hard07/01/2024HQ-2AnswerDate RecordedPatient Health Questionnaire-2 Ixrlo807[facility]inen[facility] [place] of Occupational Health - Occupational Stress QuestionnaireAnswerDate [...] were you homeless or living in a chcf (including now)?No07/01/2024CommentsNoSex and Gender Information ValueDate RecordedSex Assigned at BirthNot on fileLegal RneFuawvu54/15/2023 7:29 PM EDTGender KxagirheFgnrml28/03/2023 1:21 PM EDTSexual OrientationStraight 08/13/2023 1:21 PM EDTdocumented as of this encounter Plan of Treatment Not on file documented as of this encounter Goals GoalPatient Goal TypeAssociated ProblemsRecent ProgressPatient-Stated?Author Help patient manage antidepressant medication Care PlanPatient on antidepressant monitoring Lisa Patricia MD Baseline PHQ-9 Care PlanBaseline PHQ-9Lisa Edwards, MDdocumented as of this encounter Procedures Procedure NamePriorityDate/TimeAssociated DiagnosisCommentsSRMCOH PROTHROMBIN TIME INR W/O QCPQJheqfur90/07/2025 12:55 PM EST HMHP LIVER JZULKPwtpwbs60/07/2025 12:55 PM EST CCF EWDRHzkqknr13/07/2025 12:55 PM EST ALL TYPE AND YIFLOZPfuzuyk88/07/2025 12:55 PM EST ALL CBC WITH AUTO BEQWBwewepb82/07/2025 12:55 PM EST ALL BASIC METABOLIC TSWGFXmehjwh81/07/2025 12:55 PM EST documented in this encounter Results * (ABNORMAL) ALL BASIC METABOLIC PANEL (09/17/2025 12:55 PM EST)ComponentValue Ref RangeTest MethodAnalysis TimePerformed AtPathologist VeivqyftjFENHCY504609 - 145 mmol/LTBHPOTASSIUM3.63.5 - 5.1 mmol/MGWSVHUJJYIZ447(H)98 - 107 mmol/LTBH CARBON VEGDFFN35.321.0 - 32.0 mmol/LTBHANION GAP14.0TWDAHNXYDP23233 - 106 mg/dLTBHBLOOD UREA ZOCVUTMS39.07.0 - 18.0 mg/dLTBHCREATININE1.03(H)0.55 - 1.02 mg/dLTBHTBH EGFR-AF MONEGASQUE>60>=60 mL/min/1.73m 2TBHTBH EGFR-NON AF MONEGASQUE 60>=60 mL/min/1.73m 2TBHBUN CREATININE RATIO14.3BFUBUOYPTS1.18.5 - 10.1 mg/dL TBHSpecimen (Source)Anatomical Location / LateralityCollection Method / Volume Collection TimeReceived Time09/17/2025 12:55 PM EST09/17/2025 12:58 PM EST Narrative [facility]IN[facility] - 09/17/2025 1:54 PM EST Authorizing ProviderResult TypeResult StatusCorey Kenny DOCLINISYNCFinal Result Performing OrganizationAddressCity/State/ZIP CodePhone Number [facility] * [facility] LIVER PANEL (09/17/2025 12:55 PM EST)ComponentValueRef RangeTest Method Analysis TimePerformed AtPathologist SignatureBILIRUBIN TOTAL0.40.2 - 1.0 mg/dLTBHBILIRUBIN DIRECT0.10.0 - 0.2 mg/dLTBHASPARTATE AMINO SLGWZHDTCYG6426 - 37 U/LTBHALANINE ECTAQOCXANSSJWPL2251 - 59 U/LTBHALKALINE JQEOWNFOUGQ25451 - 116 U/LTBHTOTAL PROTEIN7.06.4 - 8.2 g/dLTBHALBUMIN LEVEL3.83.4 - 5.0 g/dLTBH GLOBULIN3.2g/dLTBHALBUMIN GLOBULIN RATIO1.2TBHSpecimen (Source)Anatomical Location / LateralityCollection Method / VolumeCollection TimeReceived Time 09/17/2025 12:55 PM EST09/17/2025 12:58 PM EST Narrative CLIN[facility]NC - 09/17/2025 1:54 PM EST Authorizing ProviderResult TypeResult StatusCorey Kenny DOCLINISYNCFinal Result Performing OrganizationAddressCity/State/ZIP CodePhone Number [facility] * ALL TYPE AND SCREEN (09/17/2025 12:55 PM EST)ComponentValueRef RangeTest MethodAnalysis TimePerformed AtPathologist SignatureBLOOD TYPEB PositiveTBH ANTIBODY SCREENNEGATIVETBHSpecimen (Source)Anatomical Location / Laterality Collection Method / VolumeCollection TimeReceived Time09/17/2025 12:55 PM EST 09/17/2025 12:58 PM EST Narrative CLINISYCT - 09/17/2025 1:45 PM EST [facility] , ?? Authorizing ProviderResult TypeResult StatusCorey Kenny DOCLINISYNCFinal Result Performing OrganizationAddressCity/State/ZIP CodePhone Number [facility] * [facility] APTT (09/17/2025 12:55 PM EST)ComponentValueRef RangeTest MethodAnalysis TimePerformed AtPathologist SignaturePARTIAL THROMBOPLASTIN TIME28.522.3 - 36.2 secTBHSpecimen (Source)Anatomical Location / LateralityCollection Method / VolumeCollection TimeReceived Time09/17/2025 12:55 PM EST09/17/2025 12:58 PM EST Narrative CLINISYNC - 09/17/2025 1:25 PM EST Authorizing ProviderResult TypeResult StatusCorey Kenny DOCLINISYNCFinal Result Performing OrganizationAddressCity/State/ZIP CodePhone Number [facility] * SRMCOH PROTHROMBIN TIME INR W/O [...] Kenny DOCLINISYNCFinal Result Performing OrganizationAddressCity/State/ZIP CodePhone Number [facility] * ALL CBC WITH AUTO DIFF (09/17/2025 12:55 PM EST)ComponentValueRef RangeTest MethodAnalysis TimePerformed AtPathologist SignatureTBH WBC5.64.0 - 11.0 10 3/uLTBHTBH RBC4.294.20 - 5.40 10 6/uLTBHTBH HGB12.212.0 - 16.0 g/dLTBHTBH HCT 36.336.0 - 48.0 %TBHTBH MCV84.681.0 - 99.0 fLTBHTBH MCH28.426.7 - 34.0 pgTBH TBH MCHC33.629.9 - 35.2 g/dLTBHTBH RDW14.511.0 - 15.0 %TBHTBH RAI012444 - 450 10 3/uLTBHTBH MPV10.19.5 - 13.5 [...] DOCLINISYNCFinal Result Performing OrganizationAddressCity/State/ZIP CodePhone Number [facility] documented in this encounter Visit Diagnoses Not on filedocumented in this encounter Additional Health Concerns Active ProblemsNoted DateDiagnosed DatePatient on antidepressant monitoring plan 4Baseline PHQ-904AssessmentNoted TimePHQ-9 Depression Total Score: 17004/28/2025 11:21 AM EDTdocumented as of this encounter Care Teams Team MemberRelationshipSpecialtyStart DateEnd Date Lisa Grady MD [address] [place] [address] [facility] - [facility] Mirella Parekh NP PCP - [facility]11/11/24documented as of this encounter
--- OUTSIDE RECORDS SUMMARY | 2025-09-22 08:22 | XMS_ITS | Encounter Summary ---
Author Organization [facility] Address [address] [place] [address] Care Team Providers Care Club Concierge Name Role Phone Lisa Grady MD Primary Care Provider [phone] Mirella Parekh DANDY OPERATOR Unavailable Encounter Details DateTypeDepartmentCare Team (Latest Contact Info)Yvkjmqyjgwt06/11/2025Clinisync Result Encounter [facility] External Department Unsolicited Walter Cox, DO [address] [place] [address] Social History Tobacco UseTypesPacks/DayYears UsedDateSmoking Tobacco: NeverSmokeless [...] the phone with family, friends, or neighbors?Patient ogfymrrz12/21/2024How often do you get together with friends or relatives?Patient pgagxfzm70/21/2024 How often do you attend religious or sikh services?Never4Do you belong to any clubs or organizations such as religious groups, unions, fraternal or athletic groups, or school groups?No07/01/2024How often do you attend meetings of the clubs or organizations you belong to?Never07/01/2024re you , , , , never , or living with a partner?Never smyacsv9407/01/2024UDIT-CAnswerDate RecordedQ1: How often do you have a drink containing alcohol?Patient /21/2024Q2: How many drinks containing alcohol do you have on a typical day when you are drinking?Patient declined 07/01/2024Q3: How often do you have six or more drinks on one occasion?Less than xlcvddi5907/01/2024Overall Financial Resource Strain (CARDIA)AnswerDate Recorded How hard is it for you to pay for the very basics like food, housing, medical care, and heating?Not very hard07/01/2024HQ-2AnswerDate RecordedPatient Health Questionnaire-2 Dpigc987[facility] [place] of Occupational Health - Occupational Stress QuestionnaireAnswerDate [...] homeless or living in a half-way (including now)?No07/01/2024CommentsNoSex and Gender Information ValueDate RecordedSex Assigned at BirthNot on fileLegal NnnEfutrk07/15/2023 7:29 PM EDTGender PiceffdsTlpjuj57/03/2023 1:21 PM EDTSexual OrientationStraight 08/13/2023 1:21 PM EDTdocumented as of this encounter Plan of Treatment Not on file documented as of this encounter Goals GoalPatient Goal TypeAssociated ProblemsRecent ProgressPatient-Stated?Author Help patient manage antidepressant medication Care PlanPatient on antidepressant monitoring Lisa Patricia MD Baseline PHQ-9 Care PlanBaseline PHQ-9Lisa Edwards, MDdocumented as of this encounter Procedures Procedure NamePriorityDate/TimeAssociated DiagnosisCommentsTBH PREG QUANT HCG Bud[place]8909/21/2025 6:11 AM EST ALL CBC WITH AUTO ZLHAVztncke82/11/2025 6:11 AM EST documented in this encounter Results * TBH PREG QUANT HCG (09/21/2025 6:11 AM EST)ComponentValueRef RangeTest Method Analysis TimePerformed AtPathologist SignatureHCG QUANTITATIVE<1mIU/mLTBH [...] DOCLINISYNCFinal Result Performing OrganizationAddressCity/State/ZIP CodePhone Number [facility] * ALL CBC WITH AUTO DIFF (09/21/2025 6:11 AM EST)ComponentValueRef RangeTest MethodAnalysis TimePerformed AtPathologist SignatureTBH WBC7.24.0 - 11.0 10 3/uLTBHTBH RBC4.294.20 - 5.40 10 6/uLTBHTBH HGB12.012.0 - 16.0 g/dLTBHTBH HCT 36.936.0 - 48.0 %TBHTBH MCV86.081.0 - 99.0 fLTBHTBH MCH28.026.7 - 34.0 pgTBH TBH MCHC32.529.9 - 35.2 g/dLTBHTBH RDW14.511.0 - 15.0 %TBHTBH KTB470019 - 450 10 3/uLTBHTBH MPV9.59.5 - 13.5 fLTBHNEUTROPHILS PERCENT AUTO43.243.0 - 75.0 % TBHLYMPHOCYTES PERCENT AUTO44.020.5 - 60.0 %TBHMONOCYTES PERCENT AUTO6.01.7 - 12.0 %TBHTBH EO %6.00.9 - 7.0 %TBHBASOPHILS PERCENT AUTO0.70.2 - 2.0 %TBH IMMATURE GRANULOCYTES PCT AUTO0.10.0 - 0.5 %TBHNEUTROPHILS ABSOLUTE AUTO3.11.4 - 6.5 10 3/uLTBHLYMPHOCYTES ABSOLUTE AUTO3.21.2 - 3.8 10 3/uLTBHMONOCYTES ABSOLUTE AUTO0.40.3 - 0.8 10 3/uLTBHTBH EO #0.40.0 - 0.7 10 3/uLTBHBASOPHILS ABSOLUTE AUTO0.10.0 - 0.1 10 3/uLTBHIMMATURE GRANULOCYTES ABS AUTO0.010.00 - 0.03 10 3/uLTBHSpecimen (Source)Anatomical Location / LateralityCollection Method / VolumeCollection TimeReceived Time09/21/2025 6:11 AM EST09/21/2025 6:15 AM EST Narrative [facility]IN[facility] - 09/21/2025 6:17 AM EST Authorizing ProviderResult TypeResult StatusCorey Kenny DOCLINISYNCFinal Result Performing OrganizationAddressCity/State/ZIP CodePhone Number [facility] documented in this encounter Visit Diagnoses Not on filedocumented in this encounter Additional Health Concerns Active ProblemsNoted DateDiagnosed DatePatient on antidepressant monitoring plan 4Baseline PHQ-9007/01/2024ssessmentNoted TimePHQ-9 Depression Total Score: 17004/28/2025 11:21 AM EDTdocumented as of this encounter Care Teams Team MemberRelationshipSpecialtyStart DateEnd Date Lisa Grady MD [address] [place] [address] PCP - [facility]03/19/23 Mirella Parekh NP PCP - [facility]11/11/24documented as of this encounter
[2025-09-22] MEDS: MAGNESIUM HYDROXIDE 2,400 MG/10 ML ORAL.SUSP 2400 MG PO (09:06)
[2025-09-22] MEDS: DOCUSATE SODIUM 100 MG CAPSULE PO (09:06)
--- NOTE | 2025-09-22 10:01 | P.GYNPN_ITS ---
ASSEMBLER INSULATOR - PN: Subj Post-Op Subjective: patient reports feeling better, patient has no complaints, patient desires discharge, pain is well controlled and patient is tolerating oral intake Exam Constitutional Vital Signs, click to edit/add: Last Vital Signs Temp 97.8 F 09/22/25 07:03 Pulse 83 09/22/25 07:03 Resp 18 09/22/25 07:03 BP 103/66 09/22/25 07:03 Pulse Ox 97 09/22/25 07:03 O2 Del Method Room Air 09/22/25 07:03 Documenting provider has reviewed patient's vital signs: yes Common normals: no apparent distress Respiratory Common normals: normal respiratory effort and clear to auscultation bilaterally Cardio Common normals: regular rate and regular rhythm GI Common normals: Normal to inspection, nondistended, normoactive bowel sounds present Extremity Common normals: no clubbing, cyanosis or edema and no calf tenderness Results Labs Labs: Short CBC 09/22/25 Range/Units 05:47 WBC 12.2 H (4.0-11.0) 10^3/uL Hgb 10.3 L (12.0-16.0) g/dL Hct 32.0 L (36.0-48.0) % Plt Count 255 (150-450) 10^3/uL ASSEMBLER INSULATOR - A/P Postoperative Procedures: Procedures Operation Date: 09/21/25 07:30 Actual Procedure Side Surgeon p ALEX, cystoscopy Bilateral Walter Cox DO Postoperative day: 1 Postoperative status ASSEMBLER INSULATOR: doing well Post-operative plan ASSEMBLER INSULATOR: routine post-op care, ambulate, advance diet and discharge Fall Risk Details Soliman fall scale risk level: Low Fall Risk Current medications: Current Medications Diphenhydramine HCl (Diphenhydramine Hcl 25 Mg Capsule) 25 mg PO ONCE THIEN Last Admin: 09/22/25 06:52 Dose: 25 mg Docusate Sodium (Docusate Sodium 100 Mg Capsule) 100 mg PO BID PRN PRN Reason: Constipation Last Admin: 09/22/25 09:06 Dose: 100 mg Enoxaparin Sodium (Enoxaparin Sodium 40 Mg/0.4 Ml Syringe) 40 mg SUBQ Q24H THIEN Last Admin: 09/22/25 06:11 Dose: 40 mg Hydromorphone HCl (Hydromorphone Hcl 0.5 Mg/0.5 Ml Syringe) 0.5 mg IV Q3H PRN PRN Reason: Pain Scale 7-10 Promethazine HCl 25 mg/ Sodium (Chloride) 51 mls @ 204 mls/hr IV Q6H PRN PRN Reason: Nausea And Vomiting Ibuprofen (Ibuprofen 400 Mg Tablet) 800 mg PO Q6H PRN PRN Reason: Pain Last Admin: 09/21/25 17:20 Dose: 800 mg Ketorolac Tromethamine (Ketorolac Tromethamine 30 Mg/Ml Vial) 30 mg IVP Q6H PRN PRN Reason: Pain Last Admin: 09/21/25 22:23 Dose: 30 mg Ondansetron HCl (Ondansetron Pf 4 Mg/2 Ml Vial) 4 mg IV Q6H PRN PRN Reason: Nausea Oxycodone/Acetaminophen (Oxycodone Hcl/Acetaminophen 5mg/325mg) 2 tab PO Q6H PRN PRN Reason: Pain Last Admin: 09/22/25 05:16 Dose: 2 tab Simethicone (Simethicone 80 Mg Tab.Chew) 80 mg PO PCHS PRN PRN Reason: Abdominal Distention Last Admin: 09/21/25 20:12 Dose: 80 mg Temazepam (Temazepam 15 Mg Capsule) 30 mg PO QHS PRN PRN Reason: Sleep Last Admin: 09/21/25 20:12 Dose: 30 mg Time Spent With Patient Time: Total time spent is greater than 50% in coordination of care (as documented) at patient's floor/unit and/or counseling patient: Time with patient: less than 15 minutes Urinary Catheter Management Urinary Catheter Management Urethral: Cath placed during this visit: no
--- NOTE | 2025-09-22 12:44 | NUTR.NU ---
Pt reports allergy info is from testing she had as a child, but she now is able to eat all foods on list without issue. Dr. Cox in, questioned pt re her current diet and approved omelet for breakfast. Pt denied need for diet education. She is discharging today.
--- NOTE | 2025-09-23 11:27 | CM.DCFOLLOWU ---
Person spoke with:patient How are you feeling?well How is your pain?tolerable Did you understand your discharge instructions?yes Do you have any questions about your discharge instructions?no Were you given any prescriptions at discharge?yes Were you able to get your prescriptions filled?yes Do you understand how to take your medications as ordered? yes Do you have any questions about your follow up appointment and do you plan to keep your follow up appointment? no questions, follow up reviewed Is there anything else that you would like to discuss? no Questions/Comments/Concerns/Other:none
== END 2025-09-22 11:45 | disposition home or self-care (01) | DRG 513 ==
LOC: SURGOUT 09-22 08:18 → MS 09-22 08:19
PROVIDERS: Admitting Provider Obstetrics & Gynecology; PCP Family Medicine; Visit Provider Obstetrics & Gynecology
PROC: 0UT90ZZ Resection of Uterus, Open Approach (ICD-10-PCS; principal; 2025-09-21 07:30)
DX: N94.6 Dysmenorrhea, unspecified (principal); N94.10 Unspecified dyspareunia; N93.9 Abnormal uterine and vaginal bleeding, unspecified; F41.9 Anxiety disorder, unspecified; F31.9 Bipolar disorder, unspecified; J45.909 Unspecified asthma, uncomplicated; F17.290 Nicotine dependence, other tobacco product, uncomplicated; Z98.51 Tubal ligation status; I10 Essential (primary) hypertension
CPT/HCPCS: 36415; 80048; 80076; 84702; 85025; 85610; 85730; 86850; 86900; 86901; 88307; 94667; 94668; 99406; J0131; J0665; J0690; J1100; J1171; J1200; J1650; J1885; J2371; J2405; J2704